=== PATIENT | female | born 1960 | race Caucasian/White ===

== ENCOUNTER 2019-10-29 16:09 | Inpatient (IN) | payer MEDICARE, SELFPAY ==
[2019-10-29] VITALS (8 sets, daily range): BP systolic 76–107; BP diastolic 48–62; PULSE 76–91; RESP 14–20; TEMP 36.5–37.2; O2SAT 93–100; BMI 37.9
--- NOTE | 2019-10-29 17:11 | W.ED.GENADLT ---
Documented by User: ASHU Rodriguez 10/29/19 22:56 HPI - General Adult General: Chief complaint: General Medical Stated complaint: diarrhea, decreased urination Time Seen by Provider: 10/29/19 17:11 History of Present Illness: HPI narrative: Patient is a 59-year-old female who comes to the ED with diarrhea and acid reflux. Patient has had her gallbladder removed. Patient says symptoms started about a week ago and she was having profuse diarrhea for the first couple days. She describes the diarrhea as watery and brown-colored. She says the diarrhea has slowed down a lot over the past couple days. Patient says she is not eating or drinking much over the last week either. Patient says she has had really bad acid reflux along with the diarrhea. She says whenever she eats or drinks anything she gets really bad reflux symptoms. She has been very fatigued and has been sleeping a lot for the past couple days. She developed a fever and chills at the start of the symptoms but has not had a fever or chills since then. She had one episode of emesis during this past week. She states she had some abdominal cramping but it was mild in the first part of the week. She denies any current abdominal pain or epigastric pain. She she took Immodium this past week to help with diarrhea symptoms. Patient also takes pantoprazole for her acid reflux. Patient denies any red blood in stool or black tarry stool. Associated symptoms: Deny chest pain, dyspnea, headache(s), nausea, rash, palpitations or vomiting Review of Systems Const: Denies: fever(s), chills or fatigue Eyes: Denies: change in vision or eye discomfort ENMT: Denies: throat pain, odynophagia, nasal discharge or nasal congestion Card: Denies: chest pain, palpitations, edema, swelling of feet/ankles, dyspnea on exertion or orthopnea Resp: Denies: dyspnea, productive cough or non-productive cough GI: Reports: heartburn (bad reflux for the past week) and diarrhea; Denies: abdominal pain, nausea, vomiting, constipation or hematochezia : Denies: flank pain, dysuria or hematuria Musc: Denies: neck pain, back pain or extremity swelling Skin/Breast: Denies: rash or new lesions Neuro: Denies: headache(s), numbness in extremities or weakness in extremities PFS ED PFSH: Medical History Asthma Depression History of menorrhagia Iron deficiency Surgical History H/O hernia repair S/P cholecystectomy Tubal ligation status Family History Denies family history of Psychiatric illness Suicide Social History Smoking and tobacco status: former smoker Alcohol intake: former Substance/Drug Use: never Household members: spouse and family Housing: House Physical Exam Const: COMMON NORMALS: no acute distress, patient oriented x3 and alert GENERAL APPEARANCE: cooperative and comfortable HENMT: COMMON NORMALS: normocephalic HEAD & SCALP: normocephalic MOUTH: moist mucous membranes abnormal Details: parched THROAT: posterior oropharynx normal and uvula midline Eye: COMMON NORMALS: Equal, round and reactive pupils present PUPIL: Yes Equal, round and reactive pupils present Neck/C-Spine: COMMON NORMALS: supple GENERAL: Yes normal visual inspection Resp: COMMON NORMALS: normal respiratory effort, No retractions, No use of accessory muscles and clear to auscultation bilaterally AUSCULTATION: clear to auscultation bilaterally Cardio: COMMON NORMALS: regular rate, regular rhythm, S1 normal heart sound present, S2 normal heart sound present, No gallops present (Cardio), No clicks present (Cardio), No murmurs present (Cardio) and Peripheral pulses 2+ throughout RATE: regular rate RHYTHM: regular rhythm HEART SOUNDS: S1 normal heart sound present and S2 normal heart sound present PERIPHERAL PULSES: Peripheral pulses 2+ throughout GI: COMMON NORMALS: Normal to inspection, nondistended, normoactive bowel sounds present, Soft to palpation, non-tender and no masses PALPATION: Yes Soft to palpation : COMMON NORMALS: Yes no CVA tenderness BLADDER/KIDNEY EXAM: Yes no CVA tenderness Back/Pelvis: COMMON NORMALS: no CVA tenderness Extremity: COMMON NORMALS: normal to inspection, capillary refill normal and no pedal edema Neuro: COMMON NORMALS: patient oriented x3 and moves all extremities SENSORIUM/ORIENTATION: Yes alert Skin: COMMON NORMALS: no rashes or lesions noted GENERAL SKIN EXAM: no rashes or lesions noted and dry skin Course Vital Signs: Vital signs: Vital Signs Temperature 99 F 10/29/19 16:21 Pulse Rate 86 10/29/19 22:28 Respiratory Rate 18 10/29/19 22:28 Blood Pressure 106/62 10/29/19 22:28 Pulse Oximetry 98 10/29/19 22:28 MDM - General Adult MDM Narrative: Medical decision making narrative: I performed the initial history, physical exam and lab/imaging work-up for patient. After lab results came back I discussed patient's elevated creatinine level with Dr. Barker. Dr. Barker will be taking over care and admission of patient. Patient is a 59-year-old female comes to the ED with diarrhea and acid reflux. Symptoms have been going on for a week and she says she is not ate or drink much fluids at all over the past week. Labs were performed and patient had a white blood cell count of 11.1, sodium of 129 and creatinine was 16.1 and BUN was 98. CT of the abdomen showed colitis. I reported these findings to Dr. Barker and he will be taking over care and admission of patient. Lab Data: Attestation: I reviewed the patient's lab results. Labs: Lab Results 10/29/19 10/29/19 10/29/19 Range/Units 17:35 17:35 17:35 WBC 11.1 H (4.0-10.0) 10^3/ uL RBC 4.39 (4.1-5.3) 10^6/u L Hgb 12.4 (11.5-15.3) g/dL Hct 38.3 (37.0-47.0) % MCV 87.2 (81-99) fL MCH 28.2 (28.0-34.0) pg MCHC 32.4 (30.0-36.0) g/dL RDW 13.2 (12.1-15.1) % Plt Count 327 (130-400) 10^3/c mm MPV 10.0 (7.4-10.4) fL Neut % (Auto) 64.4 % Lymph % (Auto) 21.0 % Metcalfe % (Auto) 7.7 % Eos % (Auto) 2.2 % Baso % (Auto) 0.6 % Neut # (Auto) 7.2 (1.8-7.7) 10^3/u L Lymph # (Auto) 2.3 (0.8-4.8) 10^3/u L Metcalfe # (Auto) 0.9 (0.2-0.9) 10^3/u L Eos # (Auto) 0.3 (0.0-0.8) 10^3/u L Baso # (Auto) 0.1 (0.0-0.1) 10^3/u L Nucleated RBC % (a uto) 0 % Nucleated RBCs # 0.0 /100WBC Sodium 129 L (136-145) mmol/L Potassium 3.8 (3.5-5.1) mmol/L Chloride 87 L (98-107) mmol/L Carbon Dioxide 18 L (22-29) mmol/L Anion Gap 27.8 H (5-19) BUN 98 H* (6-20) mg/dL Creatinine 16.1 H* (0.5-0.9) mg/dL GFR Calculation 2.3 L (90-130) mL/min Glucose 104 (65-115) mg/dL Calculated Osmolal ity 269 L (285-295) mOsm/k g Lactic Acid (Sepsi s) (0.5-2.2) mmol/L Calcium 8.5 (8.5-10.5) mg/dL Total Bilirubin 0.3 (0.15-1.2) mg/dL AST 22 (0-32) U/L ALT 21 (0-33) U/L Alkaline Phosphata se 164 H (35-105) IU/L Troponin T Baselin e (0-10) ng/L Troponin T 120 Min lumbee (0-10) ng/L Delta Troponin T (0-10) ABS# Total Protein 7.3 (6.6-8.7) g/dL Albumin 3.9 (3.5-5.2) g/dL Globulin 3.4 (1.3-4.6) g/dL Lipase 242 H (13-60) U/L Urine Color (Yellow) Urine Appearance (CLEAR) Urine pH (5-7) Ur Specific Gravit y (1.005-1.030) Urine Protein (Negative) Urine Glucose (UA) (Normal) Urine Ketones (Negative) Urine Blood (Negative) Urine Nitrate (Negative) Urine Bilirubin (NEGATIVE) Urine Urobilinogen (Negative) mg/dL Ur Leukocyte January ase (Negative) Urine RBC (0-2) /hpf Urine WBC (0-5) /hpf Ur Squamous Epith Cells (0-5) Ur Transition Epit h Cell /hpf Amorphous Sediment Urine Bacteria (NONE) Coarse Granular Ca sts /lpf H. pylori IgG Anti body Negative (Negative) 10/29/19 10/29/19 10/29/19 Range/Units 17:35 19:12 20:06 WBC (4.0-10.0) 10^3/ uL RBC (4.1-5.3) 10^6/u L Hgb (11.5-15.3) g/dL Hct (37.0-47.0) % MCV (81-99) fL MCH (28.0-34.0) pg MCHC (30.0-36.0) g/dL RDW (12.1-15.1) % Plt Count (130-400) 10^3/c mm MPV (7.4-10.4) fL Neut % (Auto) % Lymph % (Auto) % Metcalfe % (Auto) % Eos % (Auto) % Baso % (Auto) % Neut # (Auto) (1.8-7.7) 10^3/u L Lymph # (Auto) (0.8-4.8) 10^3/u L Metcalfe # (Auto) (0.2-0.9) 10^3/u L Eos # (Auto) (0.0-0.8) 10^3/u L Baso # (Auto) (0.0-0.1) 10^3/u L Nucleated RBC % (a uto) % Nucleated RBCs # /100WBC Sodium (136-145) mmol/L Potassium (3.5-5.1) mmol/L Chloride (98-107) mmol/L Carbon Dioxide (22-29) mmol/L Anion Gap (5-19) BUN (6-20) mg/dL Creatinine (0.5-0.9) mg/dL GFR Calculation (90-130) mL/min Glucose (65-115) mg/dL Calculated Osmolal ity (285-295) mOsm/k g Lactic Acid (Sepsi s) 0.7 (0.5-2.2) mmol/L Calcium (8.5-10.5) mg/dL Total Bilirubin (0.15-1.2) mg/dL AST (0-32) U/L ALT (0-33) U/L Alkaline Phosphata se (35-105) IU/L Troponin T Baselin e 47 H (0-10) ng/L Troponin T 120 Min lumbee 45.06 H (0-10) ng/L Delta Troponin T -1.94 L (0-10) ABS# Total Protein (6.6-8.7) g/dL Albumin (3.5-5.2) g/dL Globulin (1.3-4.6) g/dL Lipase (13-60) U/L Urine Color (Yellow) Urine Appearance (CLEAR) Urine pH (5-7) Ur Specific Gravit y (1.005-1.030) Urine Protein (Negative) Urine Glucose (UA) (Normal) Urine Ketones (Negative) Urine Blood (Negative) Urine Nitrate (Negative) Urine Bilirubin (NEGATIVE) Urine Urobilinogen (Negative) mg/dL Ur Leukocyte January ase (Negative) Urine RBC (0-2) /hpf Urine WBC (0-5) /hpf Ur Squamous Epith Cells (0-5) Ur Transition Epit h Cell /hpf Amorphous Sediment Urine Bacteria (NONE) Coarse Granular Ca sts /lpf H. pylori IgG Anti body (Negative) 10/29/19 Range/Units 20:10 WBC (4.0-10.0) 10^3/ uL RBC (4.1-5.3) 10^6/u L Hgb (11.5-15.3) g/dL Hct (37.0-47.0) % MCV (81-99) fL MCH (28.0-34.0) pg MCHC (30.0-36.0) g/dL RDW (12.1-15.1) % Plt Count (130-400) 10^3/c mm MPV (7.4-10.4) fL Neut % (Auto) % Lymph % (Auto) % Metcalfe % (Auto) % Eos % (Auto) % Baso % (Auto) % Neut # (Auto) (1.8-7.7) 10^3/u L Lymph # (Auto) (0.8-4.8) 10^3/u L Metcalfe # (Auto) (0.2-0.9) 10^3/u L Eos # (Auto) (0.0-0.8) 10^3/u L Baso # (Auto) (0.0-0.1) 10^3/u L Nucleated RBC % (a uto) % Nucleated RBCs # /100WBC Sodium (136-145) mmol/L Potassium (3.5-5.1) mmol/L Chloride (98-107) mmol/L Carbon Dioxide (22-29) mmol/L Anion Gap (5-19) BUN (6-20) mg/dL Creatinine (0.5-0.9) mg/dL GFR Calculation (90-130) mL/min Glucose (65-115) mg/dL Calculated Osmolal ity (285-295) mOsm/k g Lactic Acid (Sepsi s) (0.5-2.2) mmol/L Calcium (8.5-10.5) mg/dL Total Bilirubin (0.15-1.2) mg/dL AST (0-32) U/L ALT (0-33) U/L Alkaline Phosphata se (35-105) IU/L Troponin T Baselin e (0-10) ng/L Troponin T 120 Min lumbee (0-10) ng/L Delta Troponin T (0-10) ABS# Total Protein (6.6-8.7) g/dL Albumin (3.5-5.2) g/dL Globulin (1.3-4.6) g/dL Lipase (13-60) U/L Urine Color Dark yellow (Yellow) Urine Appearance Cloudy (CLEAR) Urine pH 5 (5-7) Ur Specific Gravit y 1.025 (1.005-1.030) Urine Protein 1+ H (Negative) Urine Glucose (UA) Norm (Normal) Urine Ketones 1+ H (Negative) Urine Blood 2+ H (Negative) Urine Nitrate Negative (Negative) Urine Bilirubin 1+ H (NEGATIVE) Urine Urobilinogen Norm (Negative) mg/dL Ur Leukocyte January ase 1+ H (Negative) Urine RBC 0-4 H (0-2) /hpf Urine WBC 10-15 H (0-5) /hpf Ur Squamous Epith Cells 15-25 H (0-5) Ur Transition Epit h Cell 0-4 /hpf Amorphous Sediment 1+ Urine Bacteria 1+ H (NONE) Coarse Granular Ca sts 0-4 H /lpf H. pylori IgG Anti body (Negative) Imaging Data^: CT Abd/Pel: Attestation: I personally reviewed and interpreted this imaging study as follows: Radiologist's impression: [place] [address] CT Scan Report Signed Patient: Angy Quintero Unit #: [id number] : 1960 Age/Sex: 59 / F ADM Date: 10/29/19 Loc: ER Room/Bed: Attending Dr: Ordering Provider/Ordering MD: Yovany Villanueva Date of Service: 10/29/19 Procedure(s): CT abdomen pelvis wo con [id number] Accession Number(s): [id number] Report Number: [id number] PROCEDURE INFORMATION: Exam: CT Abdomen And Pelvis Without Contrast Exam date and time: 10/29/2019 6:47 PM Age: 59 years old Clinical indication: Abdominal pain; Generalized; Prior surgery; Surgery type: Back, gb, hernia, hyst; Patient HX: Abd pain w n/v/d and weakness x 1 week; Additional info: Diarrhea, elevated lipase, elevated creatinine TECHNIQUE: Imaging protocol: Computed tomography of the abdomen and pelvis without contrast. Radiation optimization: All CT scans at this facility use at least one of these dose optimization techniques: automated exposure control; mA and/or kV adjustment per patient size (includes targeted exams where dose is matched to clinical indication); or iterative reconstruction. COMPARISON: CR Hip 2-3v RIGHT wwo Pelv* [id number] 03/21/2019 11:13 AM RADIATION DOSE METRICS: Total DLP: 1708.26 mGy-cm FINDINGS: Lungs: There is subpleural atelectasis of the dependent portions of the lungs. Mediastinal space: A small hiatal hernia is present. Liver: The liver is otherwise homogeneous in density. Gallbladder and bile ducts: There has been a cholecystectomy. The common bile duct measurement is 12 mm which is at the upper limits of normal for a postoperative patient. No intrahepatic biliary duct dilatation. Pancreas: Normal. No ductal dilation. Spleen: Normal. No splenomegaly. Adrenals: Normal. No mass. Kidneys and ureters: There is no evidence of hydronephrosis. There is no evidence of renal calcifications. Stomach and bowel: There is diffuse moderate wall thickening of the colon compatible with diffuse colitis. There is no evidence of intestinal perforation or obstruction. Appendix: A normal appendix is identified. A few appendicoliths are noted. Intraperitoneal space: Unremarkable. No free air. No significant fluid collection. Vasculature: Unremarkable.No abdominal aortic aneurysm. Lymph nodes: Unremarkable.No enlarged lymph nodes. Bladder: Unremarkable as visualized. Reproductive: Unremarkable as visualized. Bones/joints: There is a satisfactory appearance of the postoperative changes in the lower lumbar spine at L5-S1. No acute fracture. Soft tissues: There is a fat-containing umbilical hernia. CT/CT abdomen pelvis wo con [id number] IMPRESSION: There is diffuse moderate wall thickening of the colon compatible with diffuse colitis. No abscess or free air. Radiation Dose CTDIVOL = (mGy): DLP = 1708.26 (mGy-cm) Dictated By: Keiko Gilbert Signed By: Keiko Gilbert Signed Date/Time: 10/29/191928 DD/ 27 EKG Data^: EKG 1: Attestation: I personally reviewed and interpreted this EKG as follows: EKG interpretation date: 10/29/19 Interpretation: Normal sinus rhythm, 77 bpm, P waves present, no ST segment elevation or depression seen. Computer generated interpretation: Abdomen/Pelvis CT 10/29/19 18:41 IMPRESSION: There is diffuse moderate wall thickening of the colon compatible with diffuse colitis. No abscess or free air. Radiation Dose CTDIVOL = (mGy): DLP = 1708.26 (mGy-cm) Discharge Plan Discharge Admit Provider: Brian Eaton Discharge Date/Time: 10/29/19 22:32 Sign Out Sign Out Data: Patient Sign Out occurred on 10/29/19 at 20:50. Patient's care was discussed, and care was transferred from to [facility]. Coding Level of Care Code ED Group Fitness Department Head for Chg Fwd Exam Comprehensive Documented by User: Magalie Barker 10/29/19 22:44 HPI - General Adult General: Chief complaint: General Medical Stated complaint: diarrhea, decreased urination Time Seen by Provider: 10/29/19 17:11 PFSH ED PFSH: Medical History Asthma Depression History of menorrhagia Iron deficiency Surgical History H/O hernia repair S/P cholecystectomy Tubal ligation status Family History Denies family history of Psychiatric illness Suicide Social History Smoking and tobacco status: former smoker Alcohol intake: former Substance/Drug Use: never Household members: spouse and family Housing: House Course Vital Signs: Vital signs: Vital Signs Temperature 99 F 10/29/19 16:21 Pulse Rate 86 10/29/19 22:28 Respiratory Rate 18 10/29/19 22:28 Blood Pressure 106/62 10/29/19 22:28 Pulse Oximetry 98 10/29/19 22:28 MDM - General Adult MDM Narrative: Medical decision making narrative: Patient was seen and examined by me, I agree with Yovany Villanueva's assessment and plan. Patient's case was endorsed to Dr. Gallagher and he agrees admit for further evaluation and care. Lab Data: Labs: Lab Results 10/29/19 10/29/19 10/29/19 Range/Units 17:35 17:35 17:35 WBC 11.1 H (4.0-10.0) 10^3/ uL RBC 4.39 (4.1-5.3) 10^6/u L Hgb 12.4 (11.5-15.3) g/dL Hct 38.3 (37.0-47.0) % MCV 87.2 (81-99) fL MCH 28.2 (28.0-34.0) pg MCHC 32.4 (30.0-36.0) g/dL RDW 13.2 (12.1-15.1) % Plt Count 327 (130-400) 10^3/c mm MPV 10.0 (7.4-10.4) fL Neut % (Auto) 64.4 % Lymph % (Auto) 21.0 % Metcalfe % (Auto) 7.7 % Eos % (Auto) 2.2 % Baso % (Auto) 0.6 % Neut # (Auto) 7.2 (1.8-7.7) 10^3/u L Lymph # (Auto) 2.3 (0.8-4.8) 10^3/u L Metcalfe # (Auto) 0.9 (0.2-0.9) 10^3/u L Eos # (Auto) 0.3 (0.0-0.8) 10^3/u L Baso # (Auto) 0.1 (0.0-0.1) 10^3/u L Nucleated RBC % (a uto) 0 % Nucleated RBCs # 0.0 /100WBC Sodium 129 L (136-145) mmol/L Potassium 3.8 (3.5-5.1) mmol/L Chloride 87 L (98-107) mmol/L Carbon Dioxide 18 L (22-29) mmol/L Anion Gap 27.8 H (5-19) BUN 98 H* (6-20) mg/dL Creatinine 16.1 H* (0.5-0.9) mg/dL GFR Calculation 2.3 L (90-130) mL/min Glucose 104 (65-115) mg/dL Calculated Osmolal ity 269 L (285-295) mOsm/k g Lactic Acid (Sepsi s) (0.5-2.2) mmol/L Calcium 8.5 (8.5-10.5) mg/dL Total Bilirubin 0.3 (0.15-1.2) mg/dL AST 22 (0-32) U/L ALT 21 (0-33) U/L Alkaline Phosphata se 164 H (35-105) IU/L Troponin T Baselin e (0-10) ng/L Troponin T 120 Min lumbee (0-10) ng/L Delta Troponin T (0-10) ABS# Total Protein 7.3 (6.6-8.7) g/dL Albumin 3.9 (3.5-5.2) g/dL Globulin 3.4 (1.3-4.6) g/dL Lipase 242 H (13-60) U/L Urine Color (Yellow) Urine Appearance (CLEAR) Urine pH (5-7) Ur Specific Gravit y (1.005-1.030) Urine Protein (Negative) Urine Glucose (UA) (Normal) Urine Ketones (Negative) Urine Blood (Negative) Urine Nitrate (Negative) Urine Bilirubin (NEGATIVE) Urine Urobilinogen (Negative) mg/dL Ur Leukocyte January ase (Negative) Urine RBC (0-2) /hpf Urine WBC (0-5) /hpf Ur Squamous Epith Cells (0-5) Ur Transition Epit h Cell /hpf Amorphous Sediment Urine Bacteria (NONE) Coarse Granular Ca sts /lpf H. pylori IgG Anti body Negative (Negative) 10/29/19 10/29/19 10/29/19 Range/Units 17:35 19:12 20:06 WBC (4.0-10.0) 10^3/ uL RBC (4.1-5.3) 10^6/u L Hgb (11.5-15.3) g/dL Hct (37.0-47.0) % MCV (81-99) fL MCH (28.0-34.0) pg MCHC (30.0-36.0) g/dL RDW (12.1-15.1) % Plt Count (130-400) 10^3/c mm MPV (7.4-10.4) fL Neut % (Auto) % Lymph % (Auto) % Metcalfe % (Auto) % Eos % (Auto) % Baso % (Auto) % Neut # (Auto) (1.8-7.7) 10^3/u L Lymph # (Auto) (0.8-4.8) 10^3/u L Metcalfe # (Auto) (0.2-0.9) 10^3/u L Eos # (Auto) (0.0-0.8) 10^3/u L Baso # (Auto) (0.0-0.1) 10^3/u L Nucleated RBC % (a uto) % Nucleated RBCs # /100WBC Sodium (136-145) mmol/L Potassium (3.5-5.1) mmol/L Chloride (98-107) mmol/L Carbon Dioxide (22-29) mmol/L Anion Gap (5-19) BUN (6-20) mg/dL Creatinine (0.5-0.9) mg/dL GFR Calculation (90-130) mL/min Glucose (65-115) mg/dL Calculated Osmolal ity (285-295) mOsm/k g Lactic Acid (Sepsi s) 0.7 (0.5-2.2) mmol/L Calcium (8.5-10.5) mg/dL Total Bilirubin (0.15-1.2) mg/dL AST (0-32) U/L ALT (0-33) U/L Alkaline Phosphata se (35-105) IU/L Troponin T Baselin e 47 H (0-10) ng/L Troponin T 120 Min lumbee 45.06 H (0-10) ng/L Delta Troponin T -1.94 L (0-10) ABS# Total Protein (6.6-8.7) g/dL Albumin (3.5-5.2) g/dL Globulin (1.3-4.6) g/dL Lipase (13-60) U/L Urine Color (Yellow) Urine Appearance (CLEAR) Urine pH (5-7) Ur Specific Gravit y (1.005-1.030) Urine Protein (Negative) Urine Glucose (UA) (Normal) Urine Ketones (Negative) Urine Blood (Negative) Urine Nitrate (Negative) Urine Bilirubin (NEGATIVE) Urine Urobilinogen (Negative) mg/dL Ur Leukocyte January ase (Negative) Urine RBC (0-2) /hpf Urine WBC (0-5) /hpf Ur Squamous Epith Cells (0-5) Ur Transition Epit h Cell /hpf Amorphous Sediment Urine Bacteria (NONE) Coarse Granular Ca sts /lpf H. pylori IgG Anti body (Negative) 10/29/19 Range/Units 20:10 WBC (4.0-10.0) 10^3/ uL RBC (4.1-5.3) 10^6/u L Hgb (11.5-15.3) g/dL Hct (37.0-47.0) % MCV (81-99) fL MCH (28.0-34.0) pg MCHC (30.0-36.0) g/dL RDW (12.1-15.1) % Plt Count (130-400) 10^3/c mm MPV (7.4-10.4) fL Neut % (Auto) % Lymph % (Auto) % Metcalfe % (Auto) % Eos % (Auto) % Baso % (Auto) % Neut # (Auto) (1.8-7.7) 10^3/u L Lymph # (Auto) (0.8-4.8) 10^3/u L Metcalfe # (Auto) (0.2-0.9) 10^3/u L Eos # (Auto) (0.0-0.8) 10^3/u L Baso # (Auto) (0.0-0.1) 10^3/u L Nucleated RBC % (a uto) % Nucleated RBCs # /100WBC Sodium (136-145) mmol/L Potassium (3.5-5.1) mmol/L Chloride (98-107) mmol/L Carbon Dioxide (22-29) mmol/L Anion Gap (5-19) BUN (6-20) mg/dL Creatinine (0.5-0.9) mg/dL GFR Calculation (90-130) mL/min Glucose (65-115) mg/dL Calculated Osmolal ity (285-295) mOsm/k g Lactic Acid (Sepsi s) (0.5-2.2) mmol/L Calcium (8.5-10.5) mg/dL Total Bilirubin (0.15-1.2) mg/dL AST (0-32) U/L ALT (0-33) U/L Alkaline Phosphata se (35-105) IU/L Troponin T Baselin e (0-10) ng/L Troponin T 120 Min lumbee (0-10) ng/L Delta Troponin T (0-10) ABS# Total Protein (6.6-8.7) g/dL Albumin (3.5-5.2) g/dL Globulin (1.3-4.6) g/dL Lipase (13-60) U/L Urine Color Dark yellow (Yellow) Urine Appearance Cloudy (CLEAR) Urine pH 5 (5-7) Ur Specific Gravit y 1.025 (1.005-1.030) Urine Protein 1+ H (Negative) Urine Glucose (UA) Norm (Normal) Urine Ketones 1+ H (Negative) Urine Blood 2+ H (Negative) Urine Nitrate Negative (Negative) Urine Bilirubin 1+ H (NEGATIVE) Urine Urobilinogen Norm (Negative) mg/dL Ur Leukocyte January ase 1+ H (Negative) Urine RBC 0-4 H (0-2) /hpf Urine WBC 10-15 H (0-5) /hpf Ur Squamous Epith Cells 15-25 H (0-5) Ur Transition Epit h Cell 0-4 /hpf Amorphous Sediment 1+ Urine Bacteria 1+ H (NONE) Coarse Granular Ca sts 0-4 H /lpf H. pylori IgG Anti body (Negative) EKG Data^: EKG 1: Computer generated interpretation: Abdomen/Pelvis CT 10/29/19 18:41 IMPRESSION: There is diffuse moderate wall thickening of the colon compatible with diffuse colitis. No abscess or free air. Radiation Dose CTDIVOL = (mGy): DLP = 1708.26 (mGy-cm) Discharge Plan Discharge Admit Provider: Brian Eaton Discharge Date/Time: 10/29/19 22:32 Sign Out Sign Out Data: Patient Sign Out occurred on 10/29/19 at 20:50. Patient's care was discussed, and care was transferred from to [facility]. Coding Level of Care Code ED Group Fitness Department Head for Chg Fwd Exam Comprehensive
[2019-10-29] MEDS: sodium chloride 0.9% 1,000 ML 999 ML IV ×2 (17:42→19:49)
[2019-10-29 17:53] LABS: Basophils # 0.1 10^3/uL (0.0-0.1); Basophils % 0.6 %; Eosinophils # 0.3 10^3/uL (0.0-0.8); Eosinophils % 2.2 %; Hematocrit 38.3 % (37.0-47.0); Hemoglobin 12.4 g/dL (11.5-15.3); Lymphocytes # 2.3 10^3/uL (0.8-4.8); Mean Corpuscular HGB Conc 32.4 g/dL (30.0-36.0); Mean Corpuscular Hemoglobin 28.2 pg (28.0-34.0); Mean Corpuscular Volume 87.2 fL (81-99); Monocytes # 0.9 10^3/uL (0.2-0.9); Monocytes % 7.7 %; Neutrophils # 7.2 10^3/uL (1.8-7.7); Neutrophils % 64.4 %; Nucleated Red Blood Cells % 0 %; Platelet Count 327 10^3/cmm (130-400); Red Blood Count 4.39 10^6/uL (4.1-5.3); Red Cell Distribution Width 13.2 % (12.1-15.1); White Blood Count 11.1 10^3/uL (4.0-10.0)
[2019-10-29 18:00] LABS: Alanine Aminotransferase 21 U/L (0-33); Albumin Level 3.9 g/dL (3.5-5.2); Alkaline Phosphatase 164 IU/L (35-105); Anion Gap 27.8 (5-19); Aspartate Amino Transferase 22 U/L (0-32); Calcium 8.5 mg/dL (8.5-10.5); Carbon Dioxide 18 mmol/L (22-29); Chloride 87 mmol/L (98-107); Globulin 3.4 g/dL (1.3-4.6); Glomerular Filtration Rate 2.3 mL/min (90-130); Glucose 104 mg/dL (65-115); Lipase 242 U/L (13-60); Osmolality Calculated 269 mOsm/kg (285-295); Potassium 3.8 mmol/L (3.5-5.1); Sodium 129 mmol/L (136-145); Total Bilirubin 0.3 mg/dL (0.15-1.2); Total Protein 7.3 g/dL (6.6-8.7)
[2019-10-29 18:25] LABS: H. Pylori IgG Antibody Negative (Negative)
[2019-10-29 18:32] LABS: Blood Urea Nitrogen 98 mg/dL (6-20)
--- NOTE | 2019-10-29 18:41 | CTR_ITS ---
PROCEDURE INFORMATION: Exam: CT Abdomen And Pelvis Without Contrast Exam date and time: 10/29/2019 6:47 PM Age: 59 years old Clinical indication: Abdominal pain; Generalized; Prior surgery; Surgery type: Back, gb, hernia, hyst; Patient HX: Abd pain w n/v/d and weakness x 1 week; Additional info: Diarrhea, elevated lipase, elevated creatinine TECHNIQUE: Imaging protocol: Computed tomography of the abdomen and pelvis without contrast. Radiation optimization: All CT scans at this facility use at least one of these dose optimization techniques: automated exposure control; mA and/or kV adjustment per patient size (includes targeted exams where dose is matched to clinical indication); or iterative reconstruction. COMPARISON: CR Hip 2-3v RIGHT wwo Pelv* [id number] 03/21/2019 11:13 AM RADIATION DOSE METRICS: Total DLP: 1708.26 mGy-cm FINDINGS: Lungs: There is subpleural atelectasis of the dependent portions of the lungs. Mediastinal space: A small hiatal hernia is present. Liver: The liver is otherwise homogeneous in density. Gallbladder and bile ducts: There has been a cholecystectomy. The common bile duct measurement is 12 mm which is at the upper limits of normal for a postoperative patient. No intrahepatic biliary duct dilatation. Pancreas: Normal. No ductal dilation. Spleen: Normal. No splenomegaly. Adrenals: Normal. No mass. Kidneys and ureters: There is no evidence of hydronephrosis. There is no evidence of renal calcifications. Stomach and bowel: There is diffuse moderate wall thickening of the colon compatible with diffuse colitis. There is no evidence of intestinal perforation or obstruction. Appendix: A normal appendix is identified. A few appendicoliths are noted. Intraperitoneal space: Unremarkable. No free air. No significant fluid collection. Vasculature: Unremarkable.No abdominal aortic aneurysm. Lymph nodes: Unremarkable.No enlarged lymph nodes. Bladder: Unremarkable as visualized. Reproductive: Unremarkable as visualized. Bones/joints: There is a satisfactory appearance of the postoperative changes in the lower lumbar spine at L5-S1. No acute fracture. Soft tissues: There is a fat-containing umbilical hernia. CT/CT abdomen pelvis wo con [id number] IMPRESSION: There is diffuse moderate wall thickening of the colon compatible with diffuse colitis. No abscess or free air. Radiation Dose CTDIVOL = (mGy): DLP = 1708.26 (mGy-cm)
--- NOTE | 2019-10-29 19:48 | ECG_ITS ---
Measurements Intervals [place] Rate: 77 P: 11 [place]: 135 QRS: 40 QRSD: 92 T: 31 QT: 409 QTc: 465 SINUS RHYTHM No previous ECG available for comparison Electronically Signed On 10-30-2019 19:04:32 CDT by Brian Pillai M.D. [id number]
[2019-10-29] MEDS: metroNIDAZOLE IV 500 MG/100 ML PREMIX 100 MG IV (19:50)
[2019-10-29 20:10] LABS: Lactic Acid level (Lactate) 0.7 mmol/L (0.5-2.2)
[2019-10-29 20:12] LABS: Troponin(5th) Baseline 47 ng/L (0-10)
[2019-10-29 20:35] LABS: Troponin 5 2HR 45.06 ng/L (0-10)
[2019-10-29 20:43] LABS: Troponin 5 2HR Delta -1.94 ABS# (0-10)
--- NOTE | 2019-10-29 21:02 | P.HP_ITS ---
Providers/Chief Complaint Primary Care Provider: Grzegorz Garcia DO Chief Complaint: diarrhea History of Present Illness Angy Quintero is a 59 year old female who does not have a significant past medical history came in with chief complaint of acute diarrhea. Patient is stating that she was in her usual state of health until Thursday when she experienced watery diarrhea after visiting the city with her to buy groceries. She did not eat outside, she did not experience any fever, no recent traveling/ camping, she drinks well water, no one else has similar complaints at home. She eats healthy. Since Thursday she has been having profuse watery diarrhea almost every 3-4 hours, she has not noticed any blood in her stool, nausea. She only had one episode of vomiting. She has not been feeling hungry at all, she has not taken enough p.o. fluid as well, she experienced mild abdominal discomfort. She tried Imodium to stop her diarrhea but that did not help her as well. She has not used any antibiotics recently although she has history of recurrent UTIs. Her last antibiotic use was about 1 year ago. She denies colonoscopy at age 52. Diagnostics in the ER revealed Hypotension due to dehydration, LAURA, CT abdomen without contrast revealed diffuse colitis, She has received 2 L normal saline bolus in the ER She got ciprofloxacin and Flagyl At the time of my evaluation her blood pressure was 110, abdomen soft, she was asking for dinner Review of Systems Const: Reports: chills, body aches, change in appetite and fatigue; Denies: fever(s) or change in weight Eyes: Denies: change in vision ENMT: Denies: throat pain Card: Denies: chest pain Resp: Denies: dyspnea GI: Reports: abdominal pain, nausea, diarrhea, bloating and GI cramping; Denies: vomiting, hematemesis, constipation or rectal swelling : Denies: flank pain Musc: Denies: neck pain Skin/Breast: Denies: rash Neuro: Denies: headache(s) Psych: Denies: anxiety Endo: Denies: polyuria Jamar/Lymph: Denies: easy bruising All/Imm: Denies: urticaria Medications/Allergies Home Medications Medication Instructions Recorded Confirmed Last Taken Type Calcium 500 1 tab PO DAILY 10/29/19 10/29/19 Unknown History desvenlafaxine succinate 100 mg PO DAILY 10/29/19 10/29/19 10/28/19 History fentanyl See Rx Instructions .ROUTE .COMPLEX 10/29/19 10/29/19 Unknown History hydrocodone-acetaminophen 1 - 2 tab PO Q6H PRN 10/29/19 10/29/19 10/29/19 03:00 History lisinopril 20 mg PO DAILY 10/29/19 10/29/19 10/28/19 History multivitamin [Multiple Vitamins] 1 tab PO DAILY 10/29/19 10/29/19 Unknown History pantoprazole 40 mg PO BID 10/29/19 10/29/19 10/29/19 History zolpidem 5 mg PO BEDTIME PRN 10/29/19 10/29/19 10/28/19 History Allergies Allergy/AdvReac Type Severity Reaction Status Date / Time codeine Allergy ADR-Irritab Verified 10/29/19 16:26 le sulfamethoxazole Allergy ALGY-Hives Verified 10/29/19 16:26 [From Bactrim] tetracycline Allergy Unknown Verified 10/29/19 16:26 trimethoprim [From Bactrim] Allergy ALGY-Hives Verified 10/29/19 16:26 PFSH Acute PFSH: Medical History Asthma Depression History of menorrhagia Iron deficiency Surgical History H/O hernia repair S/P cholecystectomy Tubal ligation status Family History Denies family history of Psychiatric illness Suicide Social History Smoking and tobacco status: former smoker Alcohol intake: former Substance/Drug Use: never Household members: spouse and family Housing: House Vitals/I&O/Wt Last Vital Signs Temp 99 F 10/29/19 16:21 Pulse 76 10/29/19 19:47 Resp 15 10/29/19 19:47 BP 94/58 10/29/19 19:47 Pulse Ox 96 10/29/19 19:47 10/29/19 10/29/19 10/29/19 06:59 14:59 22:59 Intake Total 1000 / 1000 Balance 1000 / 1000 Weight last 48 hrs Weight 106.594 kg Physical Exam Narrative: EXAM NARRATIVE: Head to toe examination Patient sitting comfortably in her bed, feeling dehydrated and asking for food No active signs of peritonitis No active respiratory distress S1, S2 no tachycardia Positive signs for dehydration Abdomen is soft, nontender, nondistended, bowel sound present, hyperactive, No CVA tenderness, Neurological nonfocal exam Appropriate mood and affect EOMI, PERRLA No ischemia gangrene ulcer of lower extremities Data : 10/29/19 17:35 10/29/19 17:35 Micro: Microbiology 10/29/19 19:15 Blood Culture - Preliminary Blood SPECIMEN COLLECTED 10/29/19 19:12 Blood Culture - Preliminary Blood SPECIMEN COLLECTED A&P Assessment and plan (1) Colitis: Status: Acute (2) Dehydration: Status: Acute (3) LAURA (acute kidney injury): Status: Acute (4) Hyponatremia: Status: Acute (5) Watery diarrhea: Status: Acute Additional A&P Information Diffuse colitis Patient is not septic on admission C. difficile panel , Enteric panel, ova and parasite level ordered No recent use of antibiotics however she has history of recurrent UTIs No history of inflammatory bowel disease No recent traveling okay I would cover her with ceftriaxone for gram-negative microorganisms and metronidazole for anaerobic coverage Would avoid nephrotoxic agent Acute kidney injury due to dehydration and use of lisinopril without indication for dialysis Patient has had multiple episodes of watery diarrhea since Thursday No hydronephrosis or ureteral obstruction seen on CT abdomen, She is extremely dehydrated, Anticipate improvement with fluid resuscitation Hold lisinopril that she recently started for her hypertension We will get urine electrolytes Hyponatremia due to dehydration Continue fluid restriction No neurological sign Patient clinically dehydrated Full code Full liquid diet DVT prophylaxis Heparin Attestations Medical Necessity Statement*: Anticipating stay in the hospital course more than 2 m currently need antibiotics for colitis and fluid resuscitation Time Spent in Patient Care: 60 Coding Level of Care Code Acute Assistant Manager Quality Management for [facility] Fwd Diagnoses Colitis K52.9 Dehydration E86.0 LAURA (acute kidney injury) N17.9 Hyponatremia E87.1 Watery diarrhea R19.7
[2019-10-29 21:13] LABS: Blood Urine 2+ (Negative); Glucose Urine UA Norm (Normal); Ketones Urine 1+ (Negative); Protein Urine 1+ (Negative); Specific Gravity, Urine 1.025 (1.005-1.030); Urine Appearance Cloudy (CLEAR); Urine Color Dark Yellow (Yellow); pH Urine 5 (5-7)
[2019-10-29 21:14] LABS: Add Urine Microscopic? YES; Bilirubin Urine 1+ (NEGATIVE); Leukocyte Esterase Urine 1+ (Negative); Nitrate Urine Negative (Negative); Urobilinogen Urine Norm (Negative)
[2019-10-29 21:15] LABS: RBC Urine 0-4 /hpf (0-2)
[2019-10-29 21:16] LABS: Amorphous Sediment Urine 1+; Bacteria Urine 1+; Squamous Epithelial Cell Urine 15-25 (0-5); Transitional Epi Cells Urine 0-4 /hpf
[2019-10-29 21:17] LABS: Add Urine Culture? No; Coarse Granular Casts Urine 0-4 /lpf
[2019-10-29] MEDS: ciprofloxacin 400 MG/200 ML PREMIX 200 MG IV (21:30)
[2019-10-29] MEDS: lactated ringers 1,000 ML 999 ML IV (21:42)
--- NOTE | 2019-10-29 21:48 | ECG_ITS ---
Measurements Intervals [place] Rate: 80 P: 58 IN: 166 QRS: -53 QRSD: 148 T: 35 QT: 395 QTc: 456 SINUS RHYTHM RIGHT BUNDLE BRANCH BLOCK [120+ ms QRS DURATION, UPRIGHT V1, 40+ ms S IN I/aVL/V4/V5/V6] LEFT ANTERIOR FASCICULAR BLOCK [QRS AXIS <= -45, QR IN I, RS IN II] POSSIBLE ANTERIOR MYOCARDIAL INFARCTION , PROBABLY OLD [30 ms Q WAVE IN V3/V4, OR R < 0.2 mV IN V4] No previous ECG available for comparison Electronically Signed On 10-30-2019 19:07:11 CDT by Brian Pillai M.D. [id number]
[2019-10-29] MEDS: dextrose 5%-sod chloride 0.9% 1,000 ML 100 ML IV (23:04)
[2019-10-30] VITALS (11 sets, daily range): BP systolic 64–118; BP diastolic 33–70; PULSE 84–89; RESP 16–18; TEMP 36.6–37.1; O2SAT 94–100
[2019-10-30 00:56] LABS: Troponin 5 6HR 42.46 ng/L (0-10)
[2019-10-30 01:07] LABS: Troponin 5 6HR Delta -4.54 ng/L (0-12)
[2019-10-30] MEDS: HYDROcodone-acetaminophen 5-325 mg Tablet 1 TAB PO ×2 (03:39→21:30)
--- NOTE | 2019-10-30 04:47 | PC.NURSE ---
Patient's blood pressure 64/33. Nurse been notified.
[2019-10-30] MEDS: lactated ringers 1,000 ML 999 ML IV ×2 (05:05)
[2019-10-30 05:28] LABS: Basophils # 0.1 10^3/uL (0.0-0.1); Basophils % 0.7 %; Eosinophils # 0.3 10^3/uL (0.0-0.8); Eosinophils % 2.8 %; Hematocrit 32.8 % (37.0-47.0); Hemoglobin 10.3 g/dL (11.5-15.3); Lymphocytes % 22.4 %; Mean Corpuscular HGB Conc 31.4 g/dL (30.0-36.0); Mean Corpuscular Volume 89.1 fL (81-99); Mean Platelet Volume 9.9 fL (7.4-10.4); Monocytes # 0.7 10^3/uL (0.2-0.9); Monocytes % 7.8 %; Neutrophils # 5.6 10^3/uL (1.8-7.7); Neutrophils % 61.6 %; Nucleated Red Blood Cells % 0 %; Platelet Count 256 10^3/cmm (130-400); Red Blood Count 3.68 10^6/uL (4.1-5.3); Red Cell Distribution Width 13.3 % (12.1-15.1)
[2019-10-30 05:47] LABS: Anion Gap 24.7 (5-19); Blood Urea Nitrogen 77 mg/dL (6-20); Calcium 8.3 mg/dL (8.5-10.5); Carbon Dioxide 14 mmol/L (22-29); Chloride 97 mmol/L (98-107); Glomerular Filtration Rate 2.5 mL/min (90-130); Glucose 123 mg/dL (65-115); Osmolality Calculated 275 mOsm/kg (285-295); Potassium 3.7 mmol/L (3.5-5.1); Sodium 132 mmol/L (136-145)
--- NOTE | 2019-10-30 07:31 | USR_ITS ---
PROCEDURE INFORMATION: Exam: US Retroperitoneal Complete, Kidneys and Bladder. Exam date and time: 10/30/2019 8:42 AM Age: 59 years old Clinical indication: Abnormal findings; Abnormal lab test; Abnormal kidney function lab tests; Additional info: [place] TECHNIQUE: Imaging protocol: Real-time ultrasound of the retroperitoneum with image documentation. Complete exam focused on the kidneys and bladder. COMPARISON: CT abdomen pelvis wo con [id number] 10/29/2019 6:54 PM FINDINGS: Right kidney: Right kidney measures 10.4 cm in length. No renal mass, calculus, or hydronephrosis. Left kidney: Left kidney measures 9.7 cm in length. No renal mass, calculus, or hydronephrosis. Aorta: Normal caliber of the visualized abdominal aorta. Inferior vena cava: IVC not visualized. Bladder: Gutiérrez catheter in the decompressed bladder, limiting evaluation. US/US renal BI with bladder IMPRESSION: No acute sonographic abnormality in the visualized kidneys and upper collecting systems.
[2019-10-30] MEDS: cefTRIAXone 1,000 MG in sodium chloride 0.9% (plus) 50 ML 100 MG IV (07:50)
[2019-10-30] MEDS: heparin 5,000 unit/mL INJ 1 mL 5000 UNIT SUBCUT ×2 (07:51→20:28)
[2019-10-30] MEDS: metroNIDAZOLE 500 MG Tablet PO (07:51)
[2019-10-30] MEDS: dextrose 5%-sod chloride 0.9% 1,000 ML 100 ML IV (07:52)
[2019-10-30 08:30] LABS: Potassium, Radom Urine 24 mmol/L; Urine Creatinine 371 mg/dL (28-217); Urine Random Sodium 31 mmol/L
[2019-10-30 09:20] LABS: Urine Random Chloride 11 mmol/L
--- NOTE | 2019-10-30 11:45 | P.PN_ITS ---
Subjective Subjective: Interval history: Admitted last night. H&P and labs noted. Patient was admitted because of recurrent episodes of diarrhea for last 7 days along with decreased urine output for last 4 days and almost none for last 3 days. She takes lisinopril at home which she has not taken for last 3 days. Hemodynamically stable, afebrile since last night. Has had 3-4 episodes of diarrhea without any nausea or vomiting. Vitals/I&O/Wt Last Vital Signs Temp 98.5 F 10/30/19 11:15 Pulse 87 10/30/19 11:15 Resp 18 10/30/19 11:15 BP 101/62 10/30/19 11:15 Pulse Ox 98 10/30/19 11:15 10/29/19 10/30/19 10/30/19 22:59 06:59 14:59 Intake Total 1100 / 1100 480 / 1580 1480 / 1480 Balance 1100 / 1100 480 / 1580 1480 / 1480 Weight last 48 hrs Weight 106.594 kg Physical Exam Narrative: EXAM NARRATIVE: General: No acute distress, AO x3 mildly dehydrated,Kathryn spots present HEENT: PERRLA, pupils bilaterally equal and reactive Chest: Normal vesicular breath sounds, no added sounds, equal good air entry bilaterally CVS: S1-S2 regular, no murmurs, no tachycardia, no gallops, no rubs Abdomen: Soft, nontender, no organomegaly, bowel sounds present Neuro: No focal deficits, no facial deformity, AO x3, power 5/5 in all limbs Urinary Catheter Management^: Gutiérrez: Cath Placed During This Visit: yes Urinary Catheter Date of Insertion: 10/29/19 Urinary Catheter Time of Insertion: 22:00 Data : 10/30/19 05:06 10/30/19 15:10 Micro: Microbiology 10/30/19 06:35 Enteric Pathogens (PCR) - Final Stool C.difficile Toxin B Gene (PCR) - Final 10/29/19 19:15 Blood Culture - Preliminary Blood SPECIMEN COLLECTED 10/29/19 19:12 Blood Culture - Preliminary Blood SPECIMEN COLLECTED A&P Assessment and plan (1) Salmonella enteritis: Status: Acute (2) Watery diarrhea: Status: Acute (3) Dehydration: Status: Acute (4) Renal failure: Status: Acute (5) Oliguria: Status: Acute (6) Metabolic acidosis, increased anion gap: Status: Acute (7) Hypertension: Status: Acute (8) Hyponatremia: Status: Acute Additional A&P Information Colitis: Most likely because of Salmonella enteritis: Stool studies positive for Salmonella DNA. We will send stool culture for susceptibilities. Continue ceftriaxone. Stop Flagyl. Continue with fluid at 100 cc/h. Right now patient is with normal saline with D5 100 cc/h. We will continue the same for now we will wait for nephrology consultation to see if patient needs Ringer lactate. Renal failure: Most likely because of severe dehydration from diarrhea along with lisinopril use. Hyponatremia has resolved. Patient continues to have high anion gap metabolic acidosis. For now we will continue same hydration will wait for nephrology consultation to see if he have to start Ringer lactate. No acute need of dialysis for now. Send urine lites, urine eosinophils, renal ultrasound, hepatitis panel, urine electrophoresis. Continue with Gutiérrez catheter for strict input output charting. Monitor BMP daily. Hypertension: Continue to hold off on antihypertensive for now. Blood pressure mostly well controlled. Full code Renal nondialysis diet DVT prophylaxis Heparin 5000 every 12 Attestations Medical Necessity Statement*: Renal failure, Salmonella enteritis Time Spent in Patient Care: Greater than 35 minutes (>than 50% of time spent in counselling and/or direct pt care on unit) . Coding Level of Care Code Acute Toggle Press Folder And Feeder for [facility] Diagnoses Salmonella enteritis A02.0 Watery diarrhea R19.7 Dehydration E86.0 Renal failure N19 Oliguria R34 Metabolic acidosis, increased anion gap E87.2 Hypertension I10 Hyponatremia E87.1
[2019-10-30 12:16] LABS: Procalcitonin 1.86 ng/mL (0-0.5); Thyroid Stimulating Hormone 0.85 uIU/mL (0.27-4.20)
--- NOTE | 2019-10-30 12:33 | PM.CONSULT ---
Providers/Reason For Consult Consulting Physican/Specialty*: jenny phoenix md/ telenephrology Reason for Consult*: william, inc AGMA Attending Physician: Anil Hobbs MD Primary Care Provider: Grzegorz Garcia DO History of Present Illness History of Present Illness Angy Quintero is a 59 year old female h/o back issues, depression, obesity, and htn. she denies renal issuers. pt here w/ one weak of diarrhea, poor po intake, weakness, fevers. she has not urinated in days. pt was diagnosed w/ solmanella. pt started on ivf and abx. renal called for WILLIAM, hyponatremia, and inc AGMA. Review of Systems General: Reports: 10 or more systems reviewed and unremarkable except in HPI and below Narrative: weak, lightheaded, nausea, diarrhea, poor po intake, no cp, +NATION, no visual changes. dec uop, no leg edema, no new joint pain. has chronic back pain- and h/o spinal surgery Meds/Allergies Home Medications and Allergies Home Medications Medication Instructions Recorded Confirmed Last Taken Type Calcium 500 1 tab PO DAILY 10/29/19 10/29/19 Unknown History desvenlafaxine succinate 100 mg PO DAILY 10/29/19 10/29/19 10/28/19 History fentanyl See Rx Instructions .ROUTE .COMPLEX 10/29/19 10/29/19 Unknown History hydrocodone-acetaminophen 1 - 2 tab PO Q6H PRN 10/29/19 10/29/19 10/29/19 03:00 History lisinopril 20 mg PO DAILY 10/29/19 10/29/19 10/28/19 History multivitamin [Multiple Vitamins] 1 tab PO DAILY 10/29/19 10/29/19 Unknown History pantoprazole 40 mg PO BID 10/29/19 10/29/19 10/29/19 History zolpidem 5 mg PO BEDTIME PRN 10/29/19 10/29/19 10/28/19 History Allergies Allergy/AdvReac Type Severity Reaction Status Date / Time codeine Allergy ADR-Irritab Verified 10/29/19 16:26 le sulfamethoxazole Allergy ALGY-Hives Verified 10/29/19 16:26 [From Bactrim] tetracycline Allergy Unknown Verified 10/29/19 16:26 trimethoprim [From Bactrim] Allergy ALGY-Hives Verified 10/29/19 16:26 Current Medications Current Medications Generic Name Dose Route Start Last Admin Trade Name Freq PRN Reason Stop Dose Admin Hydrocodone Bitart/Acetaminophen 1 tab 10/30/19 02:39 10/30/19 03:39 [place] 5-325 Mg PO 1 tab Q12H PRN Administration MODERATE PAIN Dextrose/Sodium Chloride 1,000 mls @ 100 mls/hr 10/29/19 22:42 10/30/19 07:52 Dextrose 5%-Sod Chloride 0.9% IV 100 mls/hr .Q10H ELIESER Administration Ceftriaxone Sodium 1,000 mg/ 50 mls @ 100 mls/hr 10/30/19 09:00 10/30/19 08:20 Sodium Chloride IV Infused DAILY ELIESER Infusion Protocol Metronidazole 500 mg 10/30/19 09:00 10/30/19 07:51 Flagyl Tab PO 500 mg TID ELIESER Administration PFSH Acute PFSH: Medical History Asthma Depression History of menorrhagia Iron deficiency Surgical History H/O hernia repair S/P cholecystectomy Tubal ligation status Family History Denies family history of Psychiatric illness Suicide Social History Smoking and tobacco status: former smoker Alcohol intake: former Substance/Drug Use: never Household members: spouse and family Housing: House Vitals/I&O/Wt Last Vital Signs Temp 98.5 F 10/30/19 11:15 Pulse 87 10/30/19 11:15 Resp 18 10/30/19 11:15 BP 101/62 10/30/19 11:15 Pulse Ox 98 10/30/19 11:15 10/29/19 10/30/19 10/30/19 22:59 06:59 14:59 Intake Total 1100 / 1100 480 / 1580 1530 / 1530 Balance 1100 / 1100 480 / 1580 1530 / 1530 Weight last 48 hrs Weight 106.594 kg Physical Exam Narrative: EXAM NARRATIVE: vs noted gen- obese, NARD, in bed- comfortable heent- nc/at, eomi, anicteric neck no jvp lungs CTA b/l heart reg, no rub abd -soft, nt, nd, BS ext- no edema from x 4 pulses weak DP/ PT pulses Urinary Catheter Management^: Caldwell: Cath Placed During This Visit: yes Urinary Catheter Date of Insertion: 10/29/19 Urinary Catheter Time of Insertion: 22:00 Data Micro: Micro: Microbiology 10/30/19 06:35 Enteric Pathogens (PCR) - Final Stool C.difficile Toxin B Gene (PCR) - Fin al 10/29/19 19:15 Blood Culture - Pr eliminary Blood SPECIMEN [facility] [place] 10/29/19 19:12 Blood Culture - Pr eliminary Blood SPECIMEN [facility] A&P Additional A&P Information 59 yr old female 1. WILLIAM- please get old labs -william from Prerenal azotemia vs atn- due to solmanella, profuse diarrhea, taking lisinopril, and not eating -no hydronephrosis on renal us or CT scan -monitor uop and chemistries -d/c caldwell- no obstruction -cont ivf -protonix is also associated w/ renal insufficiency u/a dirty- will repeat 2. hyponatremia- likely prerenal- is improving -cont ivf -check am cortisol level 3,inc AGMA- from starvation ketoacidosis and from william. -normal lacatate 4. hypokalemia- monitor w/ WILLIAM improvement and diarrhea 5. anemia- w/u per hospitalist - check spep/ sife meds reviewed discussed w/ pt, RN, and Dr. Moraes Consult Attestations Medical Necessity Statement: WILLIAM, solmanella eneteritis, inc aGMA, acidosis Time Spent in Patient Care: Greater than 35 minutes Coding Level of Care Code Acute Radial Drill Press Operator for [facility]
[2019-10-30 13:37] LABS: Eosinophil Urine No Eosinophils Seen; Urine Eosinophil Count 0 (0-0)
[2019-10-30 14:38] LABS: Bilirubin Urine Neg (NEGATIVE); Blood Urine 2+ (Negative); Glucose Urine UA Norm (Normal); Ketones Urine Negative (Negative); Leukocyte Esterase Urine Trace (Negative); Nitrate Urine Negative (Negative); Protein Urine 1+ (Negative); Urine Appearance SL Hazy (CLEAR); Urine Color Yellow (Yellow); Urobilinogen Urine Norm (Negative); pH Urine 5 (5-7)
[2019-10-30 14:46] LABS: RBC Urine 0-4 /hpf (0-2)
[2019-10-30 14:47] LABS: Bacteria Urine 2+; Squamous Epithelial Cell Urine 0-4 (0-5)
[2019-10-30 14:48] LABS: Amorphous Sediment Urine 1+; Mucus Urine 2+
[2019-10-30 14:49] LABS: Add Urine Culture? Yes
[2019-10-30 15:56] LABS: Alanine Aminotransferase 14 U/L (0-33); Albumin Level 2.7 g/dL (3.5-5.2); Alkaline Phosphatase 131 IU/L (35-105); Anion Gap 23.8 (5-19); Aspartate Amino Transferase 15 U/L (0-32); Blood Urea Nitrogen 72 mg/dL (6-20); Calcium 8.7 mg/dL (8.5-10.5); Carbon Dioxide 15 mmol/L (22-29); Chloride 97 mmol/L (98-107); Creatine Phosphokinase 236 U/L (26-192); Globulin 3.3 g/dL (1.3-4.6); Glomerular Filtration Rate 2.8 mL/min (90-130); Glucose 130 mg/dL (65-115); Osmolality Calculated 275 mOsm/kg (285-295); Potassium 3.8 mmol/L (3.5-5.1); Sodium 132 mmol/L (136-145); Total Bilirubin 0.2 mg/dL (0.15-1.2)
[2019-10-30 15:57] LABS: Estmated Average Glucose 126
[2019-10-30 17:47] LABS: Hepatitis B Core AB, Total Non-Reactive (Nonreactive); Hepatitis B Surface AB 7.9 (0-8.5); Hepatitis B Surface Antigen Non-Reactive (Nonreactive)
[2019-10-30] MEDS: famotidine 20 mg/2 mL INJ IVP (18:17)
[2019-10-30] MEDS: lactated ringers 1,000 ML 125 ML IV (20:28)
[2019-10-31] VITALS: BP 103/63; PULSE 93; RESP 18; TEMP 37.4; O2SAT 95
[2019-10-31 04:00] VITALS: BP 113/70; PULSE 93; RESP 18; TEMP 36.9; O2SAT 95
[2019-10-31] MEDS: lactated ringers 1,000 ML 125 ML IV (04:24)
[2019-10-31 05:52] LABS: Basophils # 0.1 10^3/uL (0.0-0.1); Basophils % 0.6 %; Eosinophils # 0.2 10^3/uL (0.0-0.8); Eosinophils % 2.5 %; Hematocrit 28.9 % (37.0-47.0); Hemoglobin 9.5 g/dL (11.5-15.3); Lymphocytes # 1.9 10^3/uL (0.8-4.8); Lymphocytes % 19.3 %; Mean Corpuscular HGB Conc 32.9 g/dL (30.0-36.0); Mean Corpuscular Hemoglobin 28.9 pg (28.0-34.0); Mean Corpuscular Volume 87.8 fL (81-99); Mean Platelet Volume 9.6 fL (7.4-10.4); Monocytes # 0.9 10^3/uL (0.2-0.9); Monocytes % 8.7 %; Neutrophils % 61.7 %; Nucleated Red Blood Cells % 0 %; Platelet Count 318 10^3/cmm (130-400); Red Blood Count 3.29 10^6/uL (4.1-5.3); Red Cell Distribution Width 13.3 % (12.1-15.1); White Blood Count 9.7 10^3/uL (4.0-10.0)
[2019-10-31 06:13] LABS: Alanine Aminotransferase 13 U/L (0-33); Albumin Level 2.7 g/dL (3.5-5.2); Alkaline Phosphatase 117 IU/L (35-105); Anion Gap 24.9 (5-19); Aspartate Amino Transferase 14 U/L (0-32); Blood Urea Nitrogen 70 mg/dL (6-20); Calcium 8.5 mg/dL (8.5-10.5); Carbon Dioxide 13 mmol/L (22-29); Chloride 103 mmol/L (98-107); Globulin 2.2 g/dL (1.3-4.6); Glomerular Filtration Rate 2.8 mL/min (90-130); Glucose 100 mg/dL (65-115); Magnesium 1.5 mg/dL (1.7-2.3); Osmolality Calculated 283 mOsm/kg (285-295); Phosphorus 4.5 mg/dL (2.5-4.5); Potassium 3.9 mmol/L (3.5-5.1); Sodium 137 mmol/L (136-145); Total Bilirubin 0.2 mg/dL (0.15-1.2); Total Protein 4.9 g/dL (6.6-8.7)
[2019-10-31] MEDS: famotidine 20 mg/2 mL INJ IVP ×2 (06:18→17:11)
[2019-10-31 06:27] LABS: Calcium 7.7 mg/dL (8.5-10.5); Cortisol Random 16.66 mcg/dL (2.47-19.5)
[2019-10-31 06:48] LABS: Slide Review Slide Review Perform
--- NOTE | 2019-10-31 07:03 | PM.PN ---
Subjective Subjective: Interval history: weak, dec diarrhea. + h/a. no sob, cp. no abd pain. no urinary complaints. mild edema. Medications: Reviewed: Yes Medication Review Details: Current Medications Hydrocodone Bitart/Acetaminophen ([place] 5-325 Mg) 1 tab PO Q12H PRN PRN Reason: MODERATE PAIN Last Admin: 10/30/19 21:30 Dose: 1 tab Documented by: Albuterol Sulfate (Ventolin) 2 puff INHALATION Q4H.RESPIRATORY PRN PRN Reason: SHORTNESS OF BREATH Famotidine (Pepcid Inj) 20 mg IVP Q12H [facility] Last Admin: 10/31/19 06:18 Dose: 20 mg Documented by: Heparin Sodium (Beef Lung) (Heparin) 5,000 unit SUBCUT Q12H ELIESER Last Admin: 10/30/19 20:28 Dose: 5,000 unit Documented by: Ceftriaxone Sodium 1,000 mg/ (Sodium Chloride) 50 mls @ 100 mls/hr IV DAILY ELIESER; Protocol Last Infusion: 10/30/19 08:20 Dose: Infused Documented by: Lactated Ringer's (Lactated Ringers) 1,000 mls @ 125 mls/hr IV .Q8H ELIESER Last Admin: 10/31/19 04:24 Dose: 125 mls/hr Documented by: Loperamide HCl (Imodium Capsule) 2 mg PO Q12H PRN PRN Reason: DIARRHEA Ondansetron HCl (Zofran) 4 mg IVP Q6H PRN PRN Reason: NAUSEA AND VOMITING Vitals/I&O/Wt Last Vital Signs Temp 98.4 F 10/31/19 04:00 Pulse 93 10/31/19 04:00 Resp 18 10/31/19 04:00 BP 113/70 10/31/19 04:00 Pulse Ox 95 10/31/19 04:00 10/30/19 10/31/19 10/31/19 22:59 06:59 14:59 Intake Total 240 / 2170 1240 / 3410 Output Total 350 / 350 650 / 1000 Balance -110 / 1820 590 / 2410 Weight last 48 hrs Weight 116.29 kg Weight 106.594 kg Physical Exam Narrative: EXAM NARRATIVE: vs noted gen- obese, NARD, in bed- comfortable heent- nc/at, eomi, anicteric neck no jvp lungs CTA b/l heart reg, no rub abd -soft, nt, nd, BS ext- 1+ b/l leg edema from x 4 pulses weak DP/ PT pulses Urinary Catheter Management^: Caldwell: Cath Placed During This Visit: yes, but has since been removed by the nurse Reason for Continuing Indwelling Catheter: Acute Urinary Retention or Obstruction Urinary Catheter Date of Insertion: 10/29/19 Urinary Catheter Time of Insertion: 22:00 Date Urinary Catheter Removed: 10/31/19 Time Urinary Catheter Discontinued: 06:00 Data : 10/31/19 05:05 10/31/19 05:05 Micro: Microbiology 10/29/19 19:15 Blood Culture - Preliminary Blood NEGATIVE TO DATE 10/29/19 19:12 Blood Culture - Preliminary Blood NEGATIVE TO DATE 10/30/19 06:35 Enteric Pathogens (PCR) - Final Stool C.difficile Toxin B Gene (PCR) - Final A&P Additional A&P Information 59 yr old female 1. LAURA- please get old labs - follows w/ Dr. Grzegorz Garcia -laura from Prerenal azotemia vs atn- due to solmanella, profuse diarrhea, taking lisinopril, and not eating -no hydronephrosis on renal us or CT scan -monitor uop and chemistries -d/c caldwell- no obstruction -cont ivf - add bicarb to fluids. -protonix is also associated w/ renal insufficiency -monitor for uremic symptoms. may need dialysis soon -pth 92 w/ hypocalcemia- check vit d levels- may have CKD -given hematuria and lwukocytosis in urine- will check serologies -hep serologies negative 2. hyponatremia- likely prerenal- improved -cont ivf -check am cortisol level- 16.6 -normal -had low ur na on admission 3,inc AGMA- from starvation ketoacidosis and from laura. -normal lacatate -give bicarb 4. anemia- w/u per hospitalist - check spep/ sife meds reviewed discussed w/ pt, RN, and Dr. Moraes Attestations Medical Necessity Statement*: laura, met acidosis, anemia Time Spent in Patient Care: Greater than 35 minutes Coding Level of Care Code Acute Cash Processor for [facility]
[2019-10-31 07:56] VITALS: BP 106/60; PULSE 93; RESP 18; TEMP 37.3; O2SAT 92
[2019-10-31] MEDS: heparin 5,000 unit/mL INJ 1 mL 5000 UNIT SUBCUT ×2 (08:09→20:33)
[2019-10-31] MEDS: cefTRIAXone 1,000 MG in sodium chloride 0.9% (plus) 50 ML 100 MG IV (08:25)
[2019-10-31 11:33] VITALS: BP 132/80; PULSE 102; RESP 18; TEMP 37.1; O2SAT 95
--- NOTE | 2019-10-31 14:36 | PM.PN ---
Subjective Subjective: Interval history: Chart reviewed, had 650 mL urine output overnight. Slight improvement in renal function, normal K and Na, stable Hg. Gutiérrez catheter removed this AM. 1 BM today. VSS. Very pleasant but definitely not at her baseline, required assistance getting from bed to bedside commode primarily due to fatigue. She confesses that she is also concerned about her who has been dealing with a recent foot injury but understands visitor restrictions in place. Medications: Reviewed: Yes Medication Review Details: Active Medications Generic Name Dose Route Start Last Admin Trade Name Freq PRN Reason Stop Dose Admin Hydrocodone Bitart /Acetaminophen 1 tab 10/30/19 02:39 10/30/19 21:30 [place] 5-325 Mg PO 1 tab Q12H PRN Administration MODERATE PAIN Albuterol Sulfate 2 puff 10/30/19 15:12 Ventolin INHALATION Q4H.RESPIRATORY P RN SHORTNESS OF YANNA TH Famotidine 20 mg 10/30/19 18:00 10/31/19 06:18 Pepcid Inj IVP 20 mg Q12H ELIESER Administration Heparin Sodium (Be ef Lung) 5,000 unit 10/30/19 11:45 10/31/19 08:09 Heparin SUBCUT 5,000 unit Q12H ELIESER Administration Ceftriaxone Sodium 1,000 mg/ 50 mls @ 100 mls/ hr 10/30/19 09:00 10/31/19 08:25 Sodium Chloride IV 100 mls/hr DAILY ELIESER Administration Protocol Sodium Bicarbonate 75 meq/ 1,000 mls @ 120 m ls/hr 10/31/19 08:00 10/31/19 08:08 Sodium Chloride IV 120 mls/hr .Q8H20M ELIESER Administration Loperamide HCl 2 mg 10/30/19 11:45 Imodium Capsule PO Q12H PRN DIARRHEA Ondansetron HCl 4 mg 10/29/19 22:42 Zofran IVP Q6H PRN NAUSEA AND VOMITI NG codeine Allergy (Verified 10/29/19 16:26) ADR-Irritable sulfamethoxazole [From Bactrim] Allergy (Verified 10/29/19 16:26) ALGY-Hives tetracycline Allergy (Verified 10/29/19 16:26) Unknown trimethoprim [From Bactrim] Allergy (Verified 10/29/19 16:26) ALGY-Hives Vitals/I&O/Wt Last Vital Signs Temp 98.7 F 10/31/19 11:33 Pulse 102 H 10/31/19 11:33 Resp 18 10/31/19 11:33 BP 132/80 10/31/19 11:33 Pulse Ox 95 10/31/19 11:33 10/30/19 10/31/19 10/31/19 22:59 06:59 14:59 Intake Total 240 / 2170 1240 / 3410 840 / 840 Output Total 350 / 350 650 / 1000 200 / 200 Balance -110 / 1820 590 / 2410 640 / 640 Weight last 48 hrs Weight 116.29 kg Weight 106.594 kg Physical Exam Const: COMMON NORMALS: no acute distress, patient oriented x3 and alert GENERAL APPEARANCE: cooperative and comfortable NUTRITIONAL APPEARANCE: obese morbidly obese ORIENTATION/CONSCIOUSNESS: Yes awake OTHER: -appears fatigued HENMT: COMMON NORMALS: normocephalic, atraumatic, hearing grossly normal bilaterally and moist oral mucous membranes HEAD & SCALP: normocephalic and atraumatic Eye: COMMON NORMALS: Equal, round and reactive pupils present, EOMs intact bilaterally and conjunctivae normal CONJUNCTIVA: Yes conjunctivae normal PUPIL: Yes Equal, round and reactive pupils present Neck/C-Spine: COMMON NORMALS: full ROM GENERAL: Yes normal visual inspection and Yes trachea midline Resp: COMMON NORMALS: normal respiratory effort, No retractions, No use of accessory muscles and clear to auscultation bilaterally EFFORT & INSPECTION: Yes able to speak in complete sentences, Yes symmetric chest movement and No tachypneic AUSCULTATION: clear to auscultation bilaterally Cardio: COMMON NORMALS: regular rate, regular rhythm, S1 normal heart sound present, S2 normal heart sound present and No murmurs present (Cardio) RATE: regular rate RHYTHM: regular rhythm HEART SOUNDS: S1 normal heart sound present and S2 normal heart sound present GI: COMMON NORMALS: Normal to inspection, nondistended, normoactive bowel sounds present, Soft to palpation and non-tender INSPECTION: Yes central obesity PALPATION: Yes Soft to palpation Extremity: COMMON NORMALS: normal to inspection, full ROM, no clubbing, cyanosis or edema and no pedal edema Neuro: COMMON NORMALS: patient oriented x3, moves all extremities, no focal motor deficits, no sensory deficits noted and gait normal SENSORIUM/ORIENTATION: Yes alert Psych: COMMON NORMALS: mental status grossly normal, Normal thought process present, cooperative, normal affect and speech normal SPEECH: Yes normal speech THOUGHT PROCESS: Normal thought process present Skin: COMMON NORMALS: no rashes or lesions noted, no jaundice, no petechiae and no mottling GENERAL SKIN EXAM: no rashes or lesions noted Urinary Catheter Management^: Gutiérrez: Cath Placed During This Visit: yes, but has since been removed by the nurse Reason for Continuing Indwelling Catheter: Acute Urinary Retention or Obstruction Urinary Catheter Date of Insertion: 10/29/19 Urinary Catheter Time of Insertion: 22:00 Date Urinary Catheter Removed: 10/31/19 Time Urinary Catheter Discontinued: 06:00 Data : 10/31/19 05:05 10/31/19 05:05 Micro: Microbiology 10/30/19 14:20 Urine Culture - Preliminary Urine,Clean Catch 10/29/19 19:15 Blood Culture - Preliminary Blood NEGATIVE TO DATE 10/29/19 19:12 Blood Culture - Preliminary Blood NEGATIVE TO DATE 10/30/19 06:35 Enteric Pathogens (PCR) - Final Stool C.difficile Toxin B Gene (PCR) - Final A&P Assessment and plan (1) Renal failure: -appears to have at least some degree of CKD, no baseline labs to compare -significant acute renal impairment, oliguria likely multifactorial due to profuse diarrhea secondary to Salmonella enteritis, subsequent dehydration, CULLEN inhibitor use, poor oral intake -Continue to closely monitor renal function and urine output -Gutiérrez catheter discontinued this morning -Avoid nephrotoxins, renally dose meds -Nephrology consult appreciated -Continue to hold PPI -Renal ultrasound unremarkable -Hepatitis panel negative, AM cortisol wnl -Continue IVF Status: Acute Qualifiers: Acute renal failure type: unspecified Chronic kidney disease stage: unspecified stage Renal failure chronicity: acute on chronic Qualified Code(s): N17.9 - Acute kidney failure, unspecified; N18.9 - Chronic kidney disease, unspecified (2) Metabolic acidosis, increased anion gap: -on sodium bicarbonate -continue to monitor chemistry Status: Acute (3) Salmonella enteritis: -stool studies positive for Salmonella enteritis with evidence of diffuse colitis on imaging -on ceftriaxone -blood cx: negative Status: Acute (4) Colitis: -As noted above Status: Acute (5) Hypertension: -VSS; continue to monitor -ACEi on hold due to continued renal impairment Status: Chronic Qualifiers: Hypertension type: essential hypertension Qualified Code(s): I10 - Essential (primary) hypertension (6) Hyponatremia: Status: Resolved (7) Dehydration: -improving with IVF hydration Status: Acute Additional A&P Information -Morbid obesity: BMI-41 kg/m2 -Depression -hx of iron deficiency anemia -hypomagnesemia; replace as needed -renal diet as tolerated -DVT ppx with heparin -Dispo: home -Code status: FULL code Attestations Medical Necessity Statement*: Patient requires hospitalization for continued management of significant acute renal impairment with anion gap metabolic acidosis requiring continued monitoring of renal function, urine output and chemistry. Time Spent in Patient Care: Greater than 35 minutes (>than 50% of time spent in counselling and/or direct pt care on unit). Coding Level of Care Code Acute Digital Traffic Coordinator for g Fwd Exam Comprehensive Diagnoses Renal failure N17.9; N18.9 Acute renal failure type: unspecified Chronic kidney disease stage: unspecified stage Renal failure chronicity: acute on chronic Metabolic acidosis, increased anion gap E87.2 Salmonella enteritis A02.0 Colitis K52.9 Hypertension I10 Hypertension type: essential hypertension Hyponatremia E87.1 Dehydration E86.0
[2019-10-31 15:28] VITALS: BP 128/75; PULSE 103; RESP 18; TEMP 37.4; O2SAT 96
[2019-10-31 20:00] VITALS: BP 131/80; PULSE 104; RESP 20; TEMP 37.3; O2SAT 98
[2019-10-31] MEDS: HYDROcodone-acetaminophen 5-325 mg Tablet 1 TAB PO (22:50)
[2019-11-01] VITALS (8 sets, daily range): BP systolic 126–148; BP diastolic 75–86; PULSE 89–101; RESP 16–24; TEMP 37–37.3; O2SAT 97–100
[2019-11-01 05:59] LABS: Basophils # 0.1 10^3/uL (0.0-0.1); Basophils % 0.8 %; Eosinophils # 0.3 10^3/uL (0.0-0.8); Hematocrit 31.1 % (37.0-47.0); Hemoglobin 10.1 g/dL (11.5-15.3); Lymphocytes # 2.1 10^3/uL (0.8-4.8); Lymphocytes % 21.9 %; Mean Corpuscular HGB Conc 32.5 g/dL (30.0-36.0); Mean Corpuscular Hemoglobin 28.7 pg (28.0-34.0); Mean Corpuscular Volume 88.4 fL (81-99); Mean Platelet Volume 9.5 fL (7.4-10.4); Monocytes # 0.8 10^3/uL (0.2-0.9); Monocytes % 8.2 %; Neutrophils # 5.4 10^3/uL (1.8-7.7); Neutrophils % 55.4 %; Nucleated Red Blood Cells % 0 %; Platelet Count 362 10^3/cmm (130-400); Red Blood Count 3.52 10^6/uL (4.1-5.3); Red Cell Distribution Width 13.5 % (12.1-15.1); White Blood Count 9.7 10^3/uL (4.0-10.0)
[2019-11-01] MEDS: famotidine 20 mg/2 mL INJ IVP ×2 (06:01→18:57)
[2019-11-01 06:24] LABS: Ferritin 490 ng/mL (15-150); Iron 48 ug/dL (37-145); Magnesium 1.4 mg/dL (1.7-2.3); Percent Saturation 33.1 % (20-50); Phosphorus 4.3 mg/dL (2.5-4.5); Total Iron Binding Capacity 145 mcg/dl; Unsaturated Iron Binding 97 ug/dL (112-347)
[2019-11-01 06:25] LABS: Alanine Aminotransferase 12 U/L (0-33); Albumin Level 2.5 g/dL (3.5-5.2); Alkaline Phosphatase 117 IU/L (35-105); Anion Gap 19.3 (5-19); Aspartate Amino Transferase 16 U/L (0-32); Blood Urea Nitrogen 60 mg/dL (6-20); Calcium 8.6 mg/dL (8.5-10.5); Carbon Dioxide 20 mmol/L (22-29); Chloride 102 mmol/L (98-107); Globulin 2.9 g/dL (1.3-4.6); Glomerular Filtration Rate 4.1 mL/min (90-130); Glucose 138 mg/dL (65-115); Osmolality Calculated 287 mOsm/kg (285-295); Potassium 3.3 mmol/L (3.5-5.1); Sodium 138 mmol/L (136-145); Total Bilirubin 0.2 mg/dL (0.15-1.2); Total Protein 5.4 g/dL (6.6-8.7)
[2019-11-01 06:36] LABS: Slide Review Slide Review Perform
--- NOTE | 2019-11-01 07:36 | PM.PN ---
Subjective Subjective: Interval history: feels better. dec diarrhea. weak. no vernon. poor appetite, nausea. Medications: Reviewed: Yes Medication Review Details: Current Medications Hydrocodone Bitart/Acetaminophen ([place] 5-325 Mg) 1 tab PO Q12H PRN PRN Reason: MODERATE PAIN Last Admin: 10/31/19 22:50 Dose: 1 tab Documented by: Albuterol Sulfate (Ventolin) 2 puff INHALATION Q4H.RESPIRATORY PRN PRN Reason: SHORTNESS OF BREATH Famotidine (Pepcid Inj) 20 mg IVP Q12H [facility] Last Admin: 11/01/19 06:01 Dose: 20 mg Documented by: Heparin Sodium (Beef Lung) (Heparin) 5,000 unit SUBCUT Q12H [facility] Last Admin: 10/31/19 20:33 Dose: 5,000 unit Documented by: Ceftriaxone Sodium 1,000 mg/ (Sodium Chloride) 50 mls @ 100 mls/hr IV DAILY [facility]; Protocol Last Admin: 10/31/19 08:25 Dose: 100 mls/hr Documented by: Sodium Bicarbonate 75 meq/ (Sodium Chloride) 1,000 mls @ 120 mls/hr IV .Q8H20M [facility] Last Admin: 11/01/19 02:08 Dose: 120 mls/hr Documented by: Loperamide HCl (Imodium Capsule) 2 mg PO Q12H PRN PRN Reason: DIARRHEA Ondansetron HCl (Zofran) 4 mg IVP Q6H PRN PRN Reason: NAUSEA AND VOMITING Vitals/I&O/Wt Last Vital Signs Temp 98.6 F 11/01/19 03:55 Pulse 92 11/01/19 07:22 Resp 17 11/01/19 07:22 BP 127/78 11/01/19 03:55 Pulse Ox 99 11/01/19 07:22 10/31/19 11/01/19 11/01/19 22:59 06:59 14:59 Intake Total 1240 / 2080 1236 / 3316 Output Total 600 / 800 750 / 1550 Balance 640 / 1280 486 / 1766 Weight last 48 hrs Weight 116.29 kg Physical Exam Narrative: EXAM NARRATIVE: vs noted gen- obese, NARD, in bed- comfortable heent- nc/at, eomi, anicteric neck no jvp lungs CTA b/l heart reg, no rub abd -soft, nt, nd, BS ext- 1+ b/l leg edema from x 4 pulses weak DP/ PT pulses Urinary Catheter Management^: Caldwell: Cath Placed During This Visit: yes, but has since been removed by the nurse Reason for Continuing Indwelling Catheter: Acute Urinary Retention or Obstruction Urinary Catheter Date of Insertion: 10/29/19 Urinary Catheter Time of Insertion: 22:00 Date Urinary Catheter Removed: 10/31/19 Time Urinary Catheter Discontinued: 06:00 Data : 11/01/19 05:10 11/01/19 05:10 Micro: Microbiology 10/31/19 08:31 Enteric Pathogens (PCR) - Preliminary Stool 10/30/19 14:20 Urine Culture - Preliminary Urine,Clean Catch A&P Additional A&P Information 59 yr old female 1. LAURA- please get old labs - follows w/ Dr. Grzegorz Garcia -laura from Prerenal azotemia vs atn- due to solmanella, profuse diarrhea, taking lisinopril, and not eating -no hydronephrosis on renal us or CT scan -monitor uop and chemistries -caldwell out -cr improving -cont ivf - can remove bicarb -acidosis from LAURA and diarrhea is improving -protonix is also associated w/ renal insufficiency -monitor for further renal recovery -pth 92 w/ hypocalcemia- check vit d levels- may have CKD -given hematuria and lwukocytosis in urine- f/u serologies -hep serologies negative 2. hyponatremia- likely prerenal- improved -cont ivf -am cortisol level- 16.6 -normal -had low ur na on admission 2b. hypokalemia and hypomagnesemia- from diarrhea and post- ATN diuresis 3,inc AGMA- from starvation ketoacidosis and from laura. -normal lacatate -improved 4. hypocalcemia- monitor. corrects for hypoalbuminemia 5.anemia- w/u per hospitalist - check spep/ sife ferritin 490 % sat 33 meds reviewed discussed w/ pt, RN, and Dr. Moraes Attestations Medical Necessity Statement*: laura, electrolyte abnormalities, solmanellla enteritis Time Spent in Patient Care: 16 - 35 minutes Coding Level of Care Code Acute Supervisor Phosphoric Acid for Luis Lafleur
[2019-11-01] MEDS: lactated ringers 1,000 ML 100 ML IV (08:46)
[2019-11-01] MEDS: heparin 5,000 unit/mL INJ 1 mL 5000 UNIT SUBCUT ×2 (08:47→20:12)
[2019-11-01] MEDS: cefTRIAXone 1,000 MG in sodium chloride 0.9% (plus) 50 ML 100 MG IV (08:47)
--- NOTE | 2019-11-01 10:00 | PC.SOCIAL ---
IMM Update Pg 2 of IMM given and explained to patient who verbalized understanding.
[2019-11-01 12:10] LABS: Anti-streptolysin O 70 IU/mL (<200)
--- NOTE | 2019-11-01 13:17 | PM.PN ---
Subjective Subjective: Interval history: Overnight had 750 mL urine output, so far today has had 3 loose/watery bowel movements. AM labs noted, stable hemoglobin, noted improvement in renal function with creatinine down from 13.5->9.8; anion gap decreased as well, mild hypokalemia with a potassium of 3.3. Hemodynamically stable, afebrile. Switched to LR this morning. Magnesium and potassium replaced. Has had several more loose/watery bowel movements, oral intake is somewhat better today, seems more fatigued. Requesting supplementation of zinc and resumption of Pristiq if possible. Medications: Reviewed: Yes Medication Review Details: Active Medications Generic Name Dose Route Start Last Admin Trade Name Freq PRN Reason Stop Dose Admin Hydrocodone Bitart /Acetaminophen 1 tab 10/30/19 02:39 10/31/19 22:50 [place] 5-325 Mg PO 1 tab Q12H PRN Administration MODERATE PAIN Albuterol Sulfate 2 puff 10/30/19 15:12 Ventolin INHALATION Q4H.RESPIRATORY P RN SHORTNESS OF YANNA TH Famotidine 20 mg 10/30/19 18:00 11/01/19 06:01 Pepcid Inj IVP 20 mg Q12H ELIESER Administration Heparin Sodium (Be ef Lung) 5,000 unit 10/30/19 11:45 11/01/19 08:47 Heparin SUBCUT 5,000 unit Q12H ELIESER Administration Ceftriaxone Sodium 1,000 mg/ 50 mls @ 100 mls/ hr 10/30/19 09:00 11/01/19 08:47 Sodium Chloride IV 100 mls/hr DAILY ELIESER Administration Protocol Lactated Ringer's 1,000 mls @ 100 m ls/hr 11/01/19 07:45 11/01/19 10:00 Lactated Ringers IV 0 mls/hr .Q10H ELIESER Infusion Loperamide HCl 2 mg 10/30/19 11:45 Imodium Capsule PO Q12H PRN DIARRHEA Ondansetron HCl 4 mg 10/29/19 22:42 Zofran IVP Q6H PRN NAUSEA AND VOMITI NG codeine Allergy (Verified 10/29/19 16:26) ADR-Irritable sulfamethoxazole [From Bactrim] Allergy (Verified 10/29/19 16:26) ALGY-Hives tetracycline Allergy (Verified 10/29/19 16:26) Unknown trimethoprim [From Bactrim] Allergy (Verified 10/29/19 16:26) ALGY-Hives Vitals/I&O/Wt Last Vital Signs Temp 98.7 F 11/01/19 11:08 Pulse 92 11/01/19 11:08 Resp 20 H 11/01/19 11:08 BP 148/75 11/01/19 11:08 Pulse Ox 97 11/01/19 11:08 10/31/19 11/01/19 11/01/19 22:59 06:59 14:59 Intake Total 1240 / 2130 1236 / 3366 363.333 / 363.333 Output Total 600 / 800 750 / 1550 550 / 550 Balance 640 / 1330 486 / 1816 -186.667 / -186.667 Weight last 48 hrs Weight 116.29 kg Physical Exam Const: COMMON NORMALS: no acute distress, patient oriented x3 and alert GENERAL APPEARANCE: cooperative and comfortable NUTRITIONAL APPEARANCE: obese morbidly obese ORIENTATION/CONSCIOUSNESS: Yes awake OTHER: -appears fatigued HENMT: COMMON NORMALS: normocephalic, atraumatic, hearing grossly normal bilaterally and moist oral mucous membranes HEAD & SCALP: normocephalic and atraumatic Eye: COMMON NORMALS: Equal, round and reactive pupils present, EOMs intact bilaterally and conjunctivae normal CONJUNCTIVA: Yes conjunctivae normal PUPIL: Yes Equal, round and reactive pupils present Neck/C-Spine: COMMON NORMALS: full ROM GENERAL: Yes normal visual inspection and Yes trachea midline Resp: COMMON NORMALS: normal respiratory effort, No retractions, No use of accessory muscles and clear to auscultation bilaterally EFFORT & INSPECTION: Yes able to speak in complete sentences, Yes symmetric chest movement and No tachypneic AUSCULTATION: clear to auscultation bilaterally Cardio: COMMON NORMALS: regular rate, regular rhythm, S1 normal heart sound present, S2 normal heart sound present and No murmurs present (Cardio) RATE: regular rate RHYTHM: regular rhythm HEART SOUNDS: S1 normal heart sound present and S2 normal heart sound present GI: COMMON NORMALS: Normal to inspection, nondistended, normoactive bowel sounds present, Soft to palpation and non-tender INSPECTION: Yes central obesity PALPATION: Yes Soft to palpation Extremity: COMMON NORMALS: normal to inspection, full ROM, no clubbing, cyanosis or edema and no pedal edema Neuro: COMMON NORMALS: patient oriented x3, moves all extremities, no focal motor deficits, no sensory deficits noted and gait normal SENSORIUM/ORIENTATION: Yes alert Psych: COMMON NORMALS: mental status grossly normal, Normal thought process present, cooperative, normal affect and speech normal SPEECH: Yes normal speech THOUGHT PROCESS: Normal thought process present Skin: COMMON NORMALS: no rashes or lesions noted, no jaundice, no petechiae and no mottling GENERAL SKIN EXAM: no rashes or lesions noted Urinary Catheter Management^: Gutiérrez: Cath Placed During This Visit: yes, but has since been removed by the nurse Reason for Continuing Indwelling Catheter: Acute Urinary Retention or Obstruction Urinary Catheter Date of Insertion: 10/29/19 Urinary Catheter Time of Insertion: 22:00 Date Urinary Catheter Removed: 10/31/19 Time Urinary Catheter Discontinued: 06:00 Data : 11/01/19 05:10 11/01/19 05:10 Micro: Microbiology 10/31/19 08:31 Enteric Pathogens (PCR) - Preliminary Stool 10/30/19 14:20 Urine Culture - Preliminary Urine,Clean Catch A&P Assessment and plan (1) Renal failure: -appears to have at least some degree of CKD, no baseline labs to compare -significant acute renal impairment, oliguria likely multifactorial due to profuse diarrhea secondary to Salmonella enteritis, subsequent dehydration, CULLEN inhibitor use, poor oral intake -Continue to closely monitor renal function and urine output. Renal function is improving -Gutiérrez catheter discontinued this morning -Avoid nephrotoxins, renally dose meds -Nephrology consult appreciated -Continue to hold PPI -Renal ultrasound unremarkable -Hepatitis panel negative, AM cortisol wnl -Continue IVF Status: Acute Qualifiers: Acute renal failure type: unspecified Chronic kidney disease stage: unspecified stage Renal failure chronicity: acute on chronic Qualified Code(s): N17.9 - Acute kidney failure, unspecified; N18.9 - Chronic kidney disease, unspecified (2) Metabolic acidosis, increased anion gap: -off sodium bicarbonate; improved -continue to monitor chemistry Status: Acute (3) Salmonella enteritis: -stool studies positive for Salmonella enteritis with evidence of diffuse colitis on imaging -on ceftriaxone (day 3/7); would continue this as oral intake has been mediocre -blood cx: negative Status: Acute (4) Colitis: -As noted above -stool studies otherwise negative including C.difficile Status: Acute (5) UTI (urinary tract infection): -UA indicative of infection -urine cx: no growth -already on Ceftriaxone Status: Acute Qualifiers: Hematuria presence: without hematuria Urinary tract infection type: acute cystitis Qualified Code(s): N30.00 - Acute cystitis without hematuria (6) Hypertension: -VSS; continue to monitor -ACEi on hold due to continued renal impairment Status: Chronic Qualifiers: Hypertension type: essential hypertension Qualified Code(s): I10 - Essential (primary) hypertension (7) Hyponatremia: Status: Resolved (8) Dehydration: -improving with IVF hydration Status: Acute Additional A&P Information -Morbid obesity: BMI-41 kg/m2 -Depression; will resume desvenlafaxine (renally dosed) -hx of iron deficiency anemia; H/H stable -hypomagnesemia; replace as needed -renal diet as tolerated -GI ppx with famotidine -DVT ppx with heparin -Dispo: home -Code status: FULL code Attestations Medical Necessity Statement*: Patient requires hospitalization for continued management of acute on chronic renal failure, on IV fluid hydration, needs continued monitoring of renal function, continue treatment of salmonella gastroenteritis on IV antibiotics. Time Spent in Patient Care: 16 - 35 minutes (>than 50% of time spent in counselling and/or direct pt care on unit). Coding Level of Care Code Acute Director Network Development for g Fwd Exam Comprehensive Diagnoses Renal failure N17.9; N18.9 Acute renal failure type: unspecified Chronic kidney disease stage: unspecified stage Renal failure chronicity: acute on chronic Metabolic acidosis, increased anion gap E87.2 Salmonella enteritis A02.0 Colitis K52.9 UTI (urinary tract infection) N30.00 Hematuria presence: without hematuria Urinary tract infection type: acute cystitis Hypertension I10 Hypertension type: essential hypertension Hyponatremia E87.1 Dehydration E86.0
[2019-11-01 13:36] LABS: Anti-Double Strand DNA AB 6 IU/mL; Anti-Nuclear Antibody Screen NEGATIVE (NEGATIVE); SS A Ro Sjogrens Antibody <1.0 NEG AI (<1.0 NEG); SS-B/LA IGG <1.0 NEG AI (<1.0 NEG)
[2019-11-01 15:02] LABS: Creatinine, Random Urine 109 mg/dL (20-275); Protein, Total, Random 149 mg/dL (5-24); Protein/Creatinine Ratio 1.367 (0.021-0.161); Protein/Creatinine Ratio 1367 mg/g creat (21-161)
[2019-11-01] MEDS: lanolin oint 7 gm 1 APPLIC TOPICAL (15:07)
--- NOTE | 2019-11-01 18:36 | PC.NURSE ---
Shift Summary Pt has rested in bed most of the day and has had a better appetite today than previously. Transfers self to [facility]. Pt has had 3-4 loose/watery BMs. New IV established and fluids infusing at this time. Pt voiced concern about not having antidepressant medication for several days, Dr. Rizo aware. Pt is resting in bed and has no needs at this time.
[2019-11-01] MEDS: desvenlafaxine 50 mg Tablet PO (18:58)
[2019-11-01] MEDS: HYDROcodone-acetaminophen 5-325 mg Tablet 1 TAB PO (21:13)
[2019-11-02] VITALS (7 sets, daily range): BP systolic 128–145; BP diastolic 76–93; PULSE 80–97; RESP 18–20; TEMP 36.8–37.2; O2SAT 96–99
[2019-11-02] MEDS: lactated ringers 1,000 ML 100 ML IV ×2 (02:31→18:37)
[2019-11-02 05:56] LABS: Hematocrit 31.3 % (37.0-47.0); Hemoglobin 10.1 g/dL (11.5-15.3); Mean Corpuscular HGB Conc 32.3 g/dL (30.0-36.0); Mean Corpuscular Hemoglobin 28.6 pg (28.0-34.0); Mean Corpuscular Volume 88.7 fL (81-99); Mean Platelet Volume 9.2 fL (7.4-10.4); Nucleated Red Blood Cells % 0 %; Platelet Count 364 10^3/cmm (130-400); Positive C 1; Positive M 1; Red Blood Count 3.53 10^6/uL (4.1-5.3); Red Cell Distribution Width 13.6 % (12.1-15.1); White Blood Count 11.3 10^3/uL (4.0-10.0)
[2019-11-02 06:14] LABS: Creatine Phosphokinase 107 U/L (26-192)
[2019-11-02 06:15] LABS: Alanine Aminotransferase 11 U/L (0-33); Albumin Level 2.7 g/dL (3.5-5.2); Alkaline Phosphatase 121 IU/L (35-105); Anion Gap 18.6 (5-19); Aspartate Amino Transferase 17 U/L (0-32); Blood Urea Nitrogen 44 mg/dL (6-20); Calcium 8.6 mg/dL (8.5-10.5); Carbon Dioxide 20 mmol/L (22-29); Chloride 107 mmol/L (98-107); Globulin 2.7 g/dL (1.3-4.6); Glucose 118 mg/dL (65-115); Osmolality Calculated 293 mOsm/kg (285-295); Potassium 3.6 mmol/L (3.5-5.1); Sodium 142 mmol/L (136-145); Total Bilirubin 0.2 mg/dL (0.15-1.2); Total Protein 5.4 g/dL (6.6-8.7)
[2019-11-02 06:33] LABS: 25 Hydroxy Vitamin D 30 ng/mL (30-100); Magnesium 1.4 mg/dL (1.7-2.3); Phosphorus 3.4 mg/dL (2.5-4.5)
[2019-11-02 06:58] LABS: Slide Review Slide Review Perform
[2019-11-02 06:59] LABS: Absolute Eosinophils 0.2 10^3/cmm (0.0-0.7); Absolute Neutrophil 6.3 10^3/cmm (1.4-6.5); Absolute Segmented Neutrophil 6.1 10/cmm (1.6-7.1); Band Neutrophils Absolute 0.2 10^3/cmm (0.0-1.2); Eosinophils 2 %; Lymphocytes 28 %; Monocytes Absolute 0.7 10^3/cmm (0.1-0.6); Platelet Estimate Normal (Normal); Segmented Neutrophils 54 %; Total Cells Counted 100 (0-100)
--- NOTE | 2019-11-02 07:22 | PM.PN ---
Subjective Subjective: Interval history: c/o abd pain and diarrhea. poor appetite. +weak, no edema, no sob, no cp Medications: Reviewed: Yes Medication Review Details: Current Medications Hydrocodone Bitart/Acetaminophen ([place] 5-325 Mg) 1 tab PO Q12H PRN PRN Reason: MODERATE PAIN Last Admin: 11/01/19 21:13 Dose: 1 tab Documented by: Albuterol Sulfate (Ventolin) 2 puff INHALATION Q4H.RESPIRATORY PRN PRN Reason: SHORTNESS OF BREATH Desvenlafaxine (Pristiq) 50 mg PO Q48H [facility] Last Admin: 11/01/19 18:58 Dose: 50 mg Documented by: Famotidine (Pepcid Inj) 20 mg IVP Q12H [facility] Last Admin: 11/01/19 18:57 Dose: 20 mg Documented by: Heparin Sodium (Beef Lung) (Heparin) 5,000 unit SUBCUT Q12H [facility]IES[facility] Last Admin: 11/01/19 20:12 Dose: 5,000 unit Documented by: Ceftriaxone Sodium 1,000 mg/ (Sodium Chloride) 50 mls @ 100 mls/hr IV DAILY [facility]; Protocol Last Infusion: 11/01/19 09:15 Dose: 0 mls/hr Documented by: Lactated Ringer's (Lactated Ringers) 1,000 mls @ 100 mls/hr IV .Q10H [facility] Last Admin: 11/02/19 02:31 Dose: 100 mls/hr Documented by: Lanolin (Lanolin Oint) 1 applic TOPICAL PRN PRN PRN Reason: DRYNESS Last Admin: 11/01/19 15:07 Dose: 1 applic Documented by: Loperamide HCl (Imodium Capsule) 2 mg PO Q12H PRN PRN Reason: DIARRHEA Ondansetron HCl (Zofran) 4 mg IVP Q6H PRN PRN Reason: NAUSEA AND VOMITING Zinc Gluconate (Zinc Gluconate) 50 mg PO DAILY [facility] Last Admin: 11/01/19 18:58 Dose: Not Given Documented by: Vitals/I&O/Wt Last Vital Signs Temp 98.3 F 11/02/19 04:00 Pulse 80 11/02/19 04:00 Resp 20 H 11/02/19 04:00 BP 135/85 11/02/19 04:00 Pulse Ox 96 11/02/19 04:00 11/01/19 11/02/19 11/02/19 22:59 06:59 14:59 Intake Total 240 / 907.852 2531.667 / 1726.667 Output Total 550 / 1100 400 / 1500 Balance -310 / -450.000 676.667 / 226.667 Weight last 48 hrs Weight 95.753 kg Physical Exam Narrative: EXAM NARRATIVE: vs noted and stable - excellent uop gen- obese, NARD, in bed- comfortable heent- nc/at, eomi, anicteric neck no jvp lungs CTA b/l heart reg, no rub abd -soft, diffuse mild tenderness, nd, BS ext- minimal b/l leg edema from x 4 pulses weak DP/ PT pulses Urinary Catheter Management^: Caldwell: Cath Placed During This Visit: yes, but has since been removed by the nurse Reason for Continuing Indwelling Catheter: Acute Urinary Retention or Obstruction Urinary Catheter Date of Insertion: 10/29/19 Urinary Catheter Time of Insertion: 22:00 Date Urinary Catheter Removed: 10/31/19 Time Urinary Catheter Discontinued: 06:00 Data : 11/02/19 05:15 11/02/19 05:15 Micro: Microbiology 10/30/19 14:20 Urine Culture - Final Urine,Clean Catch 10/31/19 08:31 Enteric Pathogens (PCR) - Preliminary Stool A&P Additional A&P Information 59 yr old female 1. LAURA- please get old labs - follows w/ Dr. Grzegorz Garcia -laura from Prerenal azotemia vs atn- due to solmanella, profuse diarrhea, taking lisinopril, and not eating -no hydronephrosis on renal us or CT scan -monitor uop and chemistries -caldwell out -cr improving -acidosis from LAURA and diarrhea is stable- monitor, may need sodium bicarb -protonix is also associated w/ renal insufficiency -monitor for further renal recovery -pth 92 - vit d level 30, consider low dose oral vit d -given hematuria and lwukocytosis in urine- f/u serologies - neg so far- catracho, anti rho and la. antiDsDNA- indeterminate -hep serologies negative 2. hyponatremia- likely prerenal- improved -cont ivf -am cortisol level- 16.6 -normal -had low ur na on admission 3. hypokalemia and hypomagnesemia- from diarrhea and post- ATN diuresis -replete 4,inc AGMA- from starvation ketoacidosis and from laura. -normal lacatate -monitor, may need sodium bicarb 5. hypocalcemia- improved 6.anemia- w/u per hospitalist - check spep/ sife ferritin 490 % sat 33 7. diarrhea and abd pain as per hospitalist meds reviewed discussed w/ pt, RN Attestations Medical Necessity Statement*: laura, abd pain, colitis, electrolyte abnormalities Time Spent in Patient Care: 16 - 35 minutes Coding Level of Care Code Acute Mule Tender for Luis Lafleur
[2019-11-02] MEDS: famotidine 20 mg/2 mL INJ IVP ×2 (08:39→21:28)
[2019-11-02] MEDS: potassium chloride ER 10 mEq Tablet 40 MEQ PO (08:42)
[2019-11-02] MEDS: heparin 5,000 unit/mL INJ 1 mL 5000 UNIT SUBCUT ×2 (08:42→20:11)
[2019-11-02] MEDS: cholecalciferol (vitamin D3) 1,000 unit Tablet 1000 UNIT PO (08:43)
[2019-11-02] MEDS: cefTRIAXone 1,000 MG in sodium chloride 0.9% (plus) 50 ML 100 MG IV (10:51)
[2019-11-02 15:56] LABS: HEP C RNA Viral Load Quant <1.18 NOT DETECTED Log IU/mL (NOT DETECTED); HEP C RNA Viral Load Quant <15 NOT DETECTED IU/mL (NOT DETECTED)
--- NOTE | 2019-11-02 16:30 | P.PN_ITS ---
Subjective Subjective: Interval history: Patient seen and examined, reports feeling better today but continues to have frequent diarrhea, lost IV access again today, working on reestablishing this. She is really making an effort to hydrate orally with water. Other oral intake is fairly mediocre. Hemodynamically stable, afebrile, no acute overnight events reported. Creatinine continues to improve, down to 6.2 from 9.8 yesterday. Medications: Reviewed: Yes Medication Review Details: Active Medications Generic Name Dose Route Start Last Admin Trade Name Freq PRN Reason Stop Dose Admin Hydrocodone Bitart /Acetaminophen 1 tab 10/30/19 02:39 11/01/19 21:13 [place] 5-325 Mg PO 1 tab Q12H PRN Administration MODERATE PAIN Albuterol Sulfate 2 puff 10/30/19 15:12 Ventolin INHALATION Q4H.RESPIRATORY P RN SHORTNESS OF YANNA TH Desvenlafaxine 50 mg 11/01/19 18:30 11/01/19 18:58 Pristiq PO 50 mg Q48H [facility] Administration Famotidine 20 mg 10/30/19 18:00 11/02/19 08:39 Pepcid Inj IVP 20 mg Q12H [facility] Administration Heparin Sodium (Be ef Lung) 5,000 unit 10/30/19 11:45 11/02/19 08:42 Heparin SUBCUT 5,000 unit Q12H [facility] Administration Ceftriaxone Sodium 1,000 mg/ 50 mls @ 100 mls/ hr 10/30/19 09:00 11/02/19 10:51 Sodium Chloride IV 100 mls/hr DAILY [facility] Administration Protocol Lactated Ringer's 1,000 mls @ 100 m ls/hr 11/01/19 07:45 11/02/19 12:39 Lactated Ringers IV Infused .Q10H [facility] Infusion Magnesium Sulfate 1 gm/ Sodium 52 mls @ 104 mls/ hr 11/02/19 09:00 11/02/19 15:42 Chloride IV Infused BID [facility] Infusion Lanolin 1 applic 11/01/19 14:59 11/01/19 15:07 Lanolin Oint TOPICAL 1 applic PRN PRN Administration DRYNESS Loperamide HCl 2 mg 10/30/19 11:45 Imodium Capsule PO Q12H PRN DIARRHEA Ondansetron HCl 4 mg 10/29/19 22:42 Zofran IVP Q6H PRN NAUSEA AND VOMITI NG Vitamin D 1,000 unit 11/02/19 09:00 11/02/19 08:43 Vitamin D3 PO 1,000 unit DAILY [facility] Administration Zinc Gluconate 50 mg 11/01/19 18:15 11/02/19 08:44 Zinc Gluconate PO Not Given DAILY [facility] codeine Allergy (Verified 10/29/19 16:26) ADR-Irritable sulfamethoxazole [From Bactrim] Allergy (Verified 10/29/19 16:26) ALGY-Hives tetracycline Allergy (Verified 10/29/19 16:26) Unknown trimethoprim [From Bactrim] Allergy (Verified 10/29/19 16:26) ALGY-Hives Vitals/I&O/Wt Last Vital Signs Temp 98.2 F 11/02/19 15:42 Pulse 86 11/02/19 15:42 Resp 18 11/02/19 15:42 BP 145/93 11/02/19 15:42 Pulse Ox 98 11/02/19 15:42 11/02/19 11/02/19 11/02/19 06:59 14:59 22:59 Intake Total 1076.667 / 1047.704 5310 / 1340 52 / 1392 Output Total 400 / 1500 400 / 400 Balance 676.667 / 226.667 940 / 940 52 / 992 Weight last 48 hrs Weight 95.753 kg Physical Exam Const: COMMON NORMALS: no acute distress, patient oriented x3 and alert GENERAL APPEARANCE: cooperative and comfortable NUTRITIONAL APPEARANCE: obese morbidly obese ORIENTATION/CONSCIOUSNESS: Yes awake OTHER: -in better spirits today HENMT: COMMON NORMALS: normocephalic, atraumatic, hearing grossly normal bilaterally and moist oral mucous membranes HEAD & SCALP: normocephalic and atraumatic Eye: COMMON NORMALS: Equal, round and reactive pupils present, EOMs intact bilaterally and conjunctivae normal CONJUNCTIVA: Yes conjunctivae normal PUPIL: Yes Equal, round and reactive pupils present Neck/C-Spine: COMMON NORMALS: full ROM GENERAL: Yes normal visual inspection and Yes trachea midline Resp: COMMON NORMALS: normal respiratory effort, No retractions, No use of accessory muscles and clear to auscultation bilaterally EFFORT & INSPECTION: Yes able to speak in complete sentences, Yes symmetric chest movement and No tachypneic AUSCULTATION: clear to auscultation bilaterally Cardio: COMMON NORMALS: regular rate, regular rhythm, S1 normal heart sound present, S2 normal heart sound present and No murmurs present (Cardio) RATE: regular rate RHYTHM: regular rhythm HEART SOUNDS: S1 normal heart sound present and S2 normal heart sound present GI: COMMON NORMALS: Normal to inspection, nondistended, normoactive bowel sounds present, Soft to palpation and non-tender INSPECTION: Yes central obesity PALPATION: Yes Soft to palpation Extremity: COMMON NORMALS: normal to inspection, full ROM, no clubbing, cyanosis or edema and no pedal edema Neuro: COMMON NORMALS: patient oriented x3, moves all extremities, no focal motor deficits, no sensory deficits noted and gait normal SENSORIUM/ORIENTATION: Yes alert Psych: COMMON NORMALS: mental status grossly normal, Normal thought process present, cooperative, normal affect and speech normal SPEECH: Yes normal speech THOUGHT PROCESS: Normal thought process present Skin: COMMON NORMALS: no rashes or lesions noted, no jaundice, no petechiae and no mottling GENERAL SKIN EXAM: no rashes or lesions noted Urinary Catheter Management^: Gutiérrez: Cath Placed During This Visit: yes, but has since been removed by the nurse Reason for Continuing Indwelling Catheter: Acute Urinary Retention or Obstruction Urinary Catheter Date of Insertion: 10/29/19 Urinary Catheter Time of Insertion: 22:00 Date Urinary Catheter Removed: 10/31/19 Time Urinary Catheter Discontinued: 06:00 Data : 11/02/19 05:15 11/02/19 05:15 Micro: Microbiology 10/31/19 08:31 Enteric Pathogens (PCR) - Preliminary Stool Salmonella species Salmonella Paratyphi A 10/30/19 14:20 Urine Culture - Final Urine,Clean Catch A&P Assessment and plan (1) Renal failure: -appears to have at least some degree of CKD, no baseline labs to compare -significant acute renal impairment, oliguria likely multifactorial due to profuse diarrhea secondary to Salmonella enteritis, subsequent dehydration, CULLEN inhibitor use, poor oral intake -Continue to closely monitor renal function and urine output. Renal function is improving -Gutiérrez catheter discontinued and able to void independently without difficulty -Avoid nephrotoxins, renally dose meds -Nephrology consult appreciated -Continue to hold PPI -Renal ultrasound unremarkable -Hepatitis panel negative, AM cortisol wnl; serum immunofixation normal, negative TARYN, SS-A and SS-B antibodies negative, anti-dsDNA indeterminate -Continue IVF Status: Acute Qualifiers: Renal failure chronicity: acute on chronic Acute renal failure type: unspecified Chronic kidney disease stage: unspecified stage Qualified Code(s): N17.9 - Acute kidney failure, unspecified; N18.9 - Chronic kidney disease, unspecified (2) Metabolic acidosis, increased anion gap: -off sodium bicarbonate; improved -continue to monitor chemistry Status: Acute (3) Salmonella enteritis: -stool studies positive for Salmonella enteritis with evidence of diffuse colitis on imaging -on ceftriaxone (day 4/7); would continue this as oral intake has been mediocre -blood cx: negative Status: Acute (4) Colitis: -As noted above -stool studies otherwise negative including C.difficile Status: Acute (5) UTI (urinary tract infection): -UA indicative of infection -urine cx: no growth -already on Ceftriaxone Status: Acute Qualifiers: Urinary tract infection type: acute cystitis Hematuria presence: without hematuria Qualified Code(s): N30.00 - Acute cystitis without hematuria (6) Hypertension: -VSS; continue to monitor -ACEi on hold due to continued renal impairment Status: Chronic Qualifiers: Hypertension type: essential hypertension Qualified Code(s): I10 - Essential (primary) hypertension (7) Hyponatremia: Status: Resolved (8) Dehydration: -improving with IVF hydration Status: Acute Additional A&P Information -Morbid obesity: BMI-34 kg/m2 -Depression; on desvenlafaxine (renally dosed) -hx of iron deficiency anemia; H/H stable -hypomagnesemia; replace as needed -renal diet as tolerated -GI ppx with famotidine -DVT ppx with heparin -Dispo: home -Code status: FULL code Attestations Medical Necessity Statement*: Patient requires hospitalization for continued management of salmonella enteritis with associated dehydration and acute renal failure, on IV fluid hydration, IV antibiotics and needs continued close monitoring of renal function. Time Spent in Patient Care: 16 - 35 minutes (>than 50% of time spent in counselling and/or direct pt care on unit) . Coding Level of Care Code Acute Interlocking Tower Operator for Chg Fwd Diagnoses Renal failure N17.9; N18.9 Renal failure chronicity: acute on chronic Acute renal failure type: unspecified Chronic kidney disease stage: unspecified stage Metabolic acidosis, increased anion gap E87.2 Salmonella enteritis A02.0 Colitis K52.9 UTI (urinary tract infection) N30.00 Urinary tract infection type: acute cystitis Hematuria presence: without hematuria Hypertension I10 Hypertension type: essential hypertension Hyponatremia E87.1 Dehydration E86.0
[2019-11-02 16:52] LABS: Albumin,Urine Random 45 %; Alpha-1-Globulins Urine Random 3 %; Alpha-2-Globulins Urine Random 19 %; Beta-Globulin,Urine Random 14 %; Gamma Globulin,Urine Random 19 %
[2019-11-02] MEDS: HYDROcodone-acetaminophen 5-325 mg Tablet 1 TAB PO (18:35)
[2019-11-03] VITALS (8 sets, daily range): BP systolic 123–159; BP diastolic 76–91; PULSE 86–101; RESP 18–20; TEMP 36.6–36.9; O2SAT 96–99
[2019-11-03 03:47] LABS: Basophils # 0.1 10^3/uL (0.0-0.1); Basophils % 0.9 %; Eosinophils # 0.4 10^3/uL (0.0-0.8); Eosinophils % 3.1 %; Hematocrit 30.4 % (37.0-47.0); Hemoglobin 9.5 g/dL (11.5-15.3); Lymphocytes # 3.2 10^3/uL (0.8-4.8); Lymphocytes % 27.3 %; Mean Corpuscular HGB Conc 31.3 g/dL (30.0-36.0); Mean Corpuscular Volume 89.7 fL (81-99); Mean Platelet Volume 9.4 fL (7.4-10.4); Monocytes # 0.9 10^3/uL (0.2-0.9); Monocytes % 7.6 %; Neutrophils # 6.4 10^3/uL (1.8-7.7); Neutrophils % 54.6 %; Nucleated Red Blood Cells % 0 %; Platelet Count 357 10^3/cmm (130-400); Red Blood Count 3.39 10^6/uL (4.1-5.3); Red Cell Distribution Width 13.7 % (12.1-15.1); White Blood Count 11.7 10^3/uL (4.0-10.0)
[2019-11-03 04:22] LABS: Alanine Aminotransferase 11 U/L (0-33); Albumin Level 2.5 g/dL (3.5-5.2); Alkaline Phosphatase 116 IU/L (35-105); Anion Gap 15.7 (5-19); Aspartate Amino Transferase 17 U/L (0-32); Blood Urea Nitrogen 37 mg/dL (6-20); Calcium 8.6 mg/dL (8.5-10.5); Carbon Dioxide 19 mmol/L (22-29); Chloride 109 mmol/L (98-107); Globulin 2.7 g/dL (1.3-4.6); Glomerular Filtration Rate 10.9 mL/min (90-130); Glucose 113 mg/dL (65-115); Magnesium 1.9 mg/dL (1.7-2.3); Osmolality Calculated 288 mOsm/kg (285-295); Phosphorus 2.9 mg/dL (2.5-4.5); Potassium 3.7 mmol/L (3.5-5.1); Sodium 140 mmol/L (136-145); Total Bilirubin 0.2 mg/dL (0.15-1.2); Total Protein 5.2 g/dL (6.6-8.7)
[2019-11-03 05:31] LABS: Slide Review Slide Review Perform
--- NOTE | 2019-11-03 07:40 | PM.PN ---
Subjective Subjective: Interval history: seen and examined. feels better. wants to go home. diarrhea improving. no sob. no cp or vernon Medications: Reviewed: Yes Medication Review Details: Current Medications Albuterol Sulfate (Ventolin) 2 puff INHALATION Q4H.RESPIRATORY PRN PRN Reason: SHORTNESS OF BREATH Desvenlafaxine (Pristiq) 50 mg PO Q48H [facility] Last Admin: 11/01/19 18:58 Dose: 50 mg Documented by: Famotidine (Pepcid Inj) 20 mg IVP Q12H [facility] Last Admin: 11/02/19 21:28 Dose: 20 mg Documented by: Heparin Sodium (Beef Lung) (Heparin) 5,000 unit SUBCUT Q12H [facility] Last Admin: 11/02/19 20:11 Dose: 5,000 unit Documented by: Ceftriaxone Sodium 1,000 mg/ (Sodium Chloride) 50 mls @ 100 mls/hr IV DAILY [facility]; Protocol Last Infusion: 11/02/19 11:21 Dose: Infused Documented by: Lactated Ringer's (Lactated Ringers) 1,000 mls @ 100 mls/hr IV .Q10H [facility] Last Admin: 11/02/19 18:37 Dose: 100 mls/hr Documented by: Magnesium Sulfate 1 gm/ Sodium (Chloride) 52 mls @ 104 mls/hr IV BID [facility] Last Admin: 11/02/19 21:35 Dose: 104 mls/hr Documented by: Lanolin (Lanolin Oint) 1 applic TOPICAL PRN PRN PRN Reason: DRYNESS Last Admin: 11/01/19 15:07 Dose: 1 applic Documented by: Loperamide HCl (Imodium Capsule) 2 mg PO Q12H PRN PRN Reason: DIARRHEA Ondansetron HCl (Zofran) 4 mg IVP Q6H PRN PRN Reason: NAUSEA AND VOMITING Vitamin D (Vitamin D3) 1,000 unit PO DAILY [facility] Last Admin: 11/02/19 08:43 Dose: 1,000 unit Documented by: Zinc Gluconate (Zinc Gluconate) 50 mg PO DAILY [facility] Last Admin: 11/02/19 08:44 Dose: Not Given Documented by: Vitals/I&O/Wt Last Vital Signs Temp 98.5 F 11/03/19 04:00 Pulse 96 11/03/19 04:00 Resp 18 11/03/19 04:00 BP 123/76 06/11/20 04:00 Pulse Ox 96 11/03/19 04:00 11/02/19 11/03/19 11/03/19 22:59 06:59 14:59 Intake Total 52 / 1442 Output Total 1000 / 1400 Balance 52 / 1042 -1000 / 42 Weight last 48 hrs Weight 96.842 kg Weight 95.753 kg Physical Exam Narrative: EXAM NARRATIVE: vs noted and stable - excellent uop gen- obese, NARD, in bed- comfortable heent- nc/at, eomi, anicteric neck no jvp lungs CTA b/l heart reg, no rub abd -soft, less tender, nd, BS ext- minimal b/l leg edema from x 4 pulses weak DP/ PT pulses neuro -a,a, o x3 Urinary Catheter Management^: Caldwell: Cath Placed During This Visit: yes, but has since been removed by the nurse Reason for Continuing Indwelling Catheter: Acute Urinary Retention or Obstruction Urinary Catheter Date of Insertion: 10/29/19 Urinary Catheter Time of Insertion: 22:00 Date Urinary Catheter Removed: 10/31/19 Time Urinary Catheter Discontinued: 06:00 Data : 11/03/19 03:03 11/03/19 03:03 Micro: Microbiology 10/31/19 08:31 Enteric Pathogens (PCR) - Preliminary Stool Salmonella species Salmonella Paratyphi A A&P Additional A&P Information 59 yr old female 1. LAURA- please get old labs - follows w/ Dr. Grzegorz Garcia -laura from Prerenal azotemia vs atn- due to solmanella, profuse diarrhea, taking lisinopril, and not eating -no hydronephrosis on renal us or CT scan -monitor uop and chemistries -caldwell out -cr improving -acidosis from LAURA and diarrhea is stable- monitor, may need sodium bicarb - will hold for now -protonix is also associated w/ renal insufficiency -monitor for further renal recovery -pth 92 - vit d level 30, low dose oral vit d -given hematuria and lwukocytosis in urine- f/u serologies - neg so far- catracho, anti rho and la. antiDsDNA- indeterminate -hep serologies negative 2. hyponatremia- likely prerenal- improved 3. hypokalemia and hypomagnesemia- from diarrhea and post- ATN diuresis -improving, replete as needed 4,inc AGMA- from starvation ketoacidosis and from laura. -normal lacatate -monitor, may need sodium bicarb 5. hypocalcemia- improved 6.anemia- w/u per hospitalist - check spep/ sife ferritin 490 % sat 33 7. diarrhea and abd pain as per hospitalist meds reviewed renal okay for d/c- if she is eating and drinking fluids. have her see PCP on Thursday and check chemistries discussed w/ pt, RN Attestations Medical Necessity Statement*: per hospitalist Time Spent in Patient Care: 16 - 35 minutes Coding Level of Care Code Acute Machinery Rigger for Luis Lafleur
[2019-11-03] MEDS: cholecalciferol (vitamin D3) 1,000 unit Tablet 1000 UNIT PO (08:27)
[2019-11-03] MEDS: cefTRIAXone 1,000 MG in sodium chloride 0.9% (plus) 50 ML 100 MG IV (08:27)
[2019-11-03] MEDS: heparin 5,000 unit/mL INJ 1 mL 5000 UNIT SUBCUT (08:27)
[2019-11-03] MEDS: potassium chloride ER 10 mEq Tablet 20 MEQ PO (08:27)
[2019-11-03] MEDS: famotidine 20 mg/2 mL INJ IVP (09:00)
[2019-11-03] MEDS: lactated ringers 1,000 ML 100 ML IV (11:23)
--- NOTE | 2019-11-03 11:58 | DCPLANNER ---
Pg 2 of IM updated and reviewed with pt. No questions, copy provided.
--- NOTE | 2019-11-03 14:57 | P.DS_ITS ---
Discharge Providers Date of Admission: 10/29/19 21:08 Date of Discharge: November 03, 2019 Attending Provider at Admission: Brian Eaton MD Attending Provider at Discharge: Rosario Rizo MD Primary Care Provider: Grzegorz Garcia DO Diagnoses at Discharge Discharge Diagnosis (1) Renal failure: Status: Acute Problem details: -appears to have at least some degree of CKD, no baseline labs to compare -significant acute renal impairment, oliguria likely multifactorial due to profuse diarrhea secondary to Salmonella enteritis, subsequent dehydration, CULLEN inhibitor use, poor oral intake -Continue to closely monitor renal function and urine output. Renal function is improving -Gutiérrez catheter discontinued and able to void independently without difficulty -Avoid nephrotoxins, renally dose meds -Nephrology consult appreciated -Continue to hold PPI -Renal ultrasound unremarkable -Hepatitis panel negative, AM cortisol wnl; serum immunofixation normal, negative TARYN, SS-A and SS-B antibodies negative, anti-dsDNA indeterminate -Continue IVF Qualifiers: Acute renal failure type: unspecified Chronic kidney disease stage: unspecified stage Renal failure chronicity: acute on chronic Qualified Code(s): N17.9 - Acute kidney failure, unspecified; N18.9 - Chronic kidney disease, unspecified (2) Metabolic acidosis, increased anion gap: Status: Acute Problem details: -off sodium bicarbonate; improved -continue to monitor chemistry (3) Salmonella enteritis: Status: Acute Problem details: -stool studies positive for Salmonella enteritis with evidence of diffuse colitis on imaging -on ceftriaxone (day 5/7); would continue this as oral intake has been mediocre; will d/c on ciprofloxacin for dual coverage, to complete treatment course -blood cx: negative (4) Colitis: Status: Acute Problem details: -As noted above -stool studies otherwise negative including C.difficile (5) UTI (urinary tract infection): Status: Acute Problem details: -UA indicative of infection -urine cx: no growth -already on Ceftriaxone Qualifiers: Hematuria presence: without hematuria Urinary tract infection type: acute cystitis Qualified Code(s): N30.00 - Acute cystitis without hematuria (6) Hypertension: Status: Chronic Problem details: -VSS; continue to monitor -ACEi on hold due to continued renal impairment Qualifiers: Hypertension type: essential hypertension Qualified Code(s): I10 - Essential (primary) hypertension (7) Hyponatremia: Status: Resolved (8) Dehydration: Status: Acute Other Information Additional DC diagnoses/information: -Morbid obesity: BMI-34 kg/m2 -Depression; on desvenlafaxine (renally dosed) -hx of iron deficiency anemia; H/H stable -hypomagnesemia; replace as needed Reason for Visit Reason for Visit: profuse diarrhea Hospital Course Hospital Course: Patient was admitted to the medical surgical floor and received aggressive IV fluid hydration secondary to dehydration as well as broad-spectrum IV antibiotics for gastroenteritis and a UTI. She was found to have evidence of significant acute renal impairment so renal function was closely monitored throughout her hospital stay with nephrology on board. This has improved consistently with IV fluid hydration and treatment of salmonella enteritis. Stool studies were otherwise negative. She continues to have diarrhea though not quite as profuse and her oral intake is improving as well. CULLEN inhibitor, Protonix, and opiates were held to allow for renal recovery. Electrolytes were monitored and replaced as needed. She has been hemodynamically stable, consistently afebrile. Urine cultures have been negative and she was maintained on IV antibiotics due to the severity of diarrhea as well as poor oral intake initially. She will be prescribed ciprofloxacin for dual coverage of UTI and Salmonella enteritis to complete her treatment course. She did not require dialysis and I anticipate that her renal function will continue to improve until she returns to her baseline. She has been cleared for discharge today by nephrology with close follow-up with her primary care provider, preferably on Thursday for repeat lab work to continue to monitor her renal function. She is encouraged to continue to hydrate primarily with water. Discharge Summary: -Patient to follow up with primary care physician in 1-3 days; will need follow up labs to continue to monitor renal function Physical Exam Const: COMMON NORMALS: no acute distress, patient oriented x3 and alert GENERAL APPEARANCE: cooperative and comfortable NUTRITIONAL APPEARANCE: obese morbidly obese ORIENTATION/CONSCIOUSNESS: Yes awake OTHER: -in good spirits today HENMT: COMMON NORMALS: normocephalic, atraumatic, hearing grossly normal bilaterally and moist oral mucous membranes HEAD & SCALP: normocephalic and a traumatic Eye: COMMON NORMALS: Equal, round and reactive pupils present, EOMs intact bilaterally and conjunctivae normal CONJUNCTIVA: Yes conjunctivae normal PUPIL: Yes Equal, round and reactive pupils present Neck/C-Spine: COMMON NORMALS: full ROM GENERAL: Yes normal visual inspection and Yes trachea midline Resp: COMMON NORMALS: normal respiratory effort, No retractions, No use of accessory muscles and clear to auscultation bilaterally EFFORT & INSPECTION: Yes able to speak in complete sentences, Yes symmetric chest movement and No tachypneic AUSCULTATION: clear to auscultation bilaterally Cardio: COMMON NORMALS: regular rate, regular rhythm, S1 normal heart sound present, S2 normal heart sound present and No murmurs present (Cardio) RATE: regular rate RHYTHM: regular rhythm HEART SOUNDS: S1 normal heart sound present and S2 normal heart sound present GI: COMMON NORMALS: Normal to inspection, nondistended, normoactive bowel sounds present, Soft to palpation and non-tender INSPECTION: Yes central obesity PALPATION: Yes Soft to palpation Extremity: COMMON NORMALS: normal to inspection, full ROM, no clubbing, cyanosis or edema and no pedal edema Neuro: COMMON NORMALS: patient oriented x3, moves all extremities, no focal motor deficits, no sensory deficits noted and gait normal SENSORIUM/ORIENTATION: Yes alert Psych: COMMON NORMALS: mental status grossly normal, Normal thought process present, cooperative, normal affect and speech normal SPEECH: Yes normal speech THOUGHT PROCESS: Normal thought process present Skin: COMMON NORMALS: no rashes or lesions noted, no jaundice, no petechiae and no mottling GENERAL SKIN EXAM: no rashes or lesions noted Urinary Catheter Management^: Gutiérrez: Cath Placed During This Visit: yes, but has since been removed by the nurse Reason for Continuing Indwelling Catheter: Acute Urinary Retention or Obstruction Urinary Catheter Date of Insertion: 10/29/19 Urinary Catheter Time of Insertion: 22:00 Date Urinary Catheter Removed: 10/31/19 Time Urinary Catheter Discontinued: 06:00 Discharge Data Data Completed and Pending: Completed Studies During Hospitalization Category Date Time Status CT abdomen pelvis wo con [id number] Urge nt Cat Scan 10/29/19 18:41 Completed US renal BI with bladder Routine Ultrasound 10/30/19 07:31 Completed Pending at discharge Category Date Time Status Anti-Neutrophil C utoplasmic AB Rout ine Lab 10/31/19 05:05 Received Blood Culture Sta t Lab 10/29/19 19:15 Results Comprehensive Met abolic Panel AM LILO JIMENEZ Lab 11/04/19 04:00 Ordered Comprehensive Met abolic Panel AM LILO JIMENEZ Lab 11/05/19 04:00 Ordered Enteric Bacterial Panel by PCR Stat Lab 10/31/19 08:31 Results Magnesium AM LABS Lab 11/04/19 04:00 Ordered Magnesium AM LABS Lab 11/05/19 04:00 Ordered Magnesium AM LABS Lab 11/06/19 04:00 Ordered Miscellaneous Sammie t Stat Lab 10/31/19 05:05 Received OVA and Parasites , Conc and PE Rout ine Lab 10/29/19 22:42 Received Phosphorus AM LAB S Lab 11/04/19 04:00 Ordered Phosphorus AM LAB S Lab 11/05/19 04:00 Ordered Phosphorus AM LAB S Lab 11/06/19 04:00 Ordered Urine Random Lyte s Routine Lab 10/30/19 13:01 Ordered Labs from last 24 hours 11/03/19 11/03/19 10/30/19 03:03 03:03 15:10 WBC 11.7 H RBC 3.39 L Hgb 9.5 L Hct 30.4 L MCV 89.7 MCH 28.0 MCHC 31.3 RDW 13.7 Plt Count 357 MPV 9.4 Neut % (Auto) 54.6 Lymph % (Auto) 27.3 [place] % (Auto) 7.6 Eos % (Auto) 3.1 Baso % (Auto) 0.9 Neut # (Auto) 6.4 Lymph # (Auto) 3.2 [place] # (Auto) 0.9 Eos # (Auto) 0.4 Baso # (Auto) 0.1 Nucleated RBC % (a uto) 0 Nucleated RBCs # 0.0 Sodium 140 Potassium 3.7 Chloride 109 H Carbon Dioxide 19 L Anion Gap 15.7 BUN 37 H Creatinine 4.2 H GFR Calculation 10.9 L Glucose 113 Calculated Osmolal ity 288 Calcium 8.6 Phosphorus 2.9 Magnesium 1.9 Total Bilirubin 0.2 AST 17 ALT 11 Alkaline Phosphata se 116 H Total Protein 5.2 L Albumin 2.5 L Globulin 2.7 Ur Random Albumin U Random a-1-Globu jennifer % U Random a-2-Globu jennifer % U Random Beta Glob ulin U Random Gamma Adore b Urine PEP Interpre t HCV RNA (PCR) IUs/ ml <1.18 not detecte d HCV RNA (PCR) IU l og10 <15 not detected 10/30/19 11:52 WBC RBC Hgb Hct MCV MCH MCHC RDW Plt Count MPV Neut % (Auto) Lymph % (Auto) [place] % (Auto) Eos % (Auto) Baso % (Auto) Neut # (Auto) Lymph # (Auto) [place] # (Auto) Eos # (Auto) Baso # (Auto) Nucleated RBC % (a uto) Nucleated RBCs # Sodium Potassium Chloride Carbon Dioxide Anion Gap BUN Creatinine GFR Calculation Glucose Calculated Osmolal ity Calcium Phosphorus Magnesium Total Bilirubin AST ALT Alkaline Phosphata se Total Protein Albumin Globulin Ur Random Albumin 45 U Random a-1-Globu jennifer % 3 U Random a-2-Globu jennifer % 19 U Random Beta Glob ulin 14 U Random Gamma Adore b 19 Urine PEP Interpre t See note HCV RNA (PCR) IUs/ ml HCV RNA (PCR) IU l og10 Vitals: Last Vital Signs Temp 98.4 F 11/03/19 11:16 Pulse 86 11/03/19 11:16 Resp 18 11/03/19 11:16 BP 127/81 11/03/19 11:16 Pulse Ox 98 11/03/19 11:16 Discharge Plan Discharge Patient Disposition: Home, Self-Care Condition: Stable Prescriptions: New loperamide 2 mg Capsule 2 mg PO Q12H PRN (Reason: Diarrhea) 30 Days Qty: 60 RF: 0 zinc gluconate 50 mg Tablet 50 mg PO DAILY 30 Days Qty: 30 RF: 0 Pristiq 50 mg Tablet Extended Release 24 Hr 50 mg PO Q48H 30 Days Qty: 15 RF: 0 ciprofloxacin HCl 500 mg tablet 500 mg PO BID 7 Days Qty: 14 RF: 0 Continued Multiple Vitamins Tablet 1 tab PO DAILY RF: 0 hydrocodone-acetaminophen 10-325 mg tablet 1 - 2 tab PO Q6H PRN (Reason: Pain) RF: 0 zolpidem 5 mg tablet 5 mg PO BEDTIME PRN (Reason: Sleep) RF: 0 Calcium 500 1 tab PO DAILY RF: 0 Discontinued lisinopril 20 mg tablet 20 mg PO DAILY RF: 0 pantoprazole 40 mg tablet,delayed release (DR/EC) 40 mg PO BID RF: 0 desvenlafaxine succinate 100 mg tablet extended release 24 hr 100 mg PO DAILY RF: 0 fentanyl 25 mcg/hr Patch 72 Hour See Rx Instructions .ROUTE .COMPLEX RF: 0 Discharge Orders: Discharge Order (Routine); Ordered 11/03/19 Ordered By: Rosario Rizo Referrals: Grzegorz Garcia DO [Primary Care Provider] - 1-3 days (Post hospital discharge follow up. Will need f/u BMP to continue to monitor renal function as she had significant LAURA secondary to Salmonella enteritis.) Discharge Diet: Advance as tolerated Discharge Activity: Increase activity as tolerated Patient Instructions: Ciprofloxacin (By mouth), Loperamide (By mouth), Desvenlafaxine (By mouth), Salmonella Infection (GEN) Discharge Attestations Time Spent in Discharge Care*: greater than 30 min Specific Discharge Activities: Specific discharge activities: educating patient, discussing with case liner/social workers/dc planners, documenting/other paperwork and evaluating patient/reviewing data Status at Discharge: Cognitive status at discharge: cognitively intact , Behavioral status at discharge: cooperative , Functional status at discharge: independent ambulation Overall status at discharge: patient is progressing back to baseline Quality Metrics Clinical Quality Measures During this hospital stay, did patient experience: None Coding Level of Care Code Acute Medical Sales Associate for g Fwd Exam Comprehensive Diagnoses Renal failure N17.9; N18.9 Acute renal failure type: unspecified Chronic kidney disease stage: unspecified stage Renal failure chronicity: acute on chronic Metabolic acidosis, increased anion gap E87.2 Salmonella enteritis A02.0 Colitis K52.9 UTI (urinary tract infection) N30.00 Hematuria presence: without hematuria Urinary tract infection type: acute cystitis Hypertension I10 Hypertension type: essential hypertension Hyponatremia E87.1 Dehydration E86.0
[2019-11-06 11:56] LABS: ANCA Interp Negative (Negative)
== END 2019-11-03 17:10 | disposition home or self-care (01) | DRG 372 ==
LOC: ER 20:50 → MEDSURG 21:35
PROVIDERS: Emergency Medicine; Internal Medicine Nephrology; Nurse Practitioner Family; Physician Assistant; Student in an Organized Health Care Education/Training Program; Admitting Provider Internal Medicine; PCP Electrodiagnostic Medicine; Visit Provider Family Medicine
DX: A02.0 Salmonella enteritis (principal); N17.9 Acute kidney failure, unspecified; E87.1 Hypo-osmolality and hyponatremia; E87.2 Acidosis; N30.01 Acute cystitis with hematuria; I95.9 Hypotension, unspecified; E86.0 Dehydration; J45.909 Unspecified asthma, uncomplicated; F32.9 Major depressive disorder, single episode, unspecified; D50.9 Iron deficiency anemia, unspecified; Z87.891 Personal history of nicotine dependence; I12.9 Hypertensive chronic kidney disease with stage 1 through stage 4 chronic kidney disease, or unspecified chronic kidney disease; N18.9 Chronic kidney disease, unspecified; E66.8 Other obesity; Z68.34 Body mass index [BMI] 34.0-34.9, adult; E83.42 Hypomagnesemia
CPT/HCPCS: 12345; 36415; 51702; 74176; 76770; 76857; 80048; 80053; 81001; 82306; 82310; 82436; 82533; 82550; 82570; 82728; 83036; 83516; 83540; 83550; 83605; 83690; 83735; 83970; 84100; 84133; 84145; 84260; 84300; 84443; 84484; 85007; 85025; 85999; 86038; 86060; 86225; 86235; 86677; 86705; 86706; 87040; 87086; 87177; 87186; 87209; 87340; 87493; 87506; 87522; 93005; 94664; 96372; 96375; 99283; J0696; J0744; J1644; J3475; J3490; J7030; Q3014; S0030

== ENCOUNTER 2019-11-07 12:41 | Outpatient (CLI) | payer MEDICARE, SELFPAY ==
--- NOTE | 2019-11-07 12:48 | XR_ITS ---
WS: [id number] XR chest 2V* [id number] REASON FOR EXAM: DYSPNEA FINDINGS: Blunting of the right costophrenic angle with low-grade alveolar infiltrate in the right dari ng base. There is also small amount of left pleural effusion noted. The heart is normal. A mild scoliotic curve convex to the left. XR/XR chest 2V* [id number] IMPRESSION: Low-grade pneumonia right lung base Small amounts of bilateral pleural effusion.
== END 2019-11-07 12:42 | disposition home or self-care (01) ==
LOC: RAD 12:45
PROVIDERS: PCP Electrodiagnostic Medicine; Visit Provider Family Medicine
DX: R06.00 Dyspnea, unspecified (principal); J90 Pleural effusion, not elsewhere classified
CPT/HCPCS: 71046

== ENCOUNTER 2020-09-04 10:09 | Outpatient (CLI) | payer MEDICARE, SELFPAY ==
--- NOTE | 2020-09-04 10:18 | XRR_ITS ---
PROCEDURE INFORMATION: Exam: XR Right Foot Exam date and time: 09/04/2020 10:21 AM Age: 60 years old Clinical indication: Pain; Foot; Right; Additional info: R foot pain TECHNIQUE: Imaging protocol: XR Right foot. Views: 3 or more views. COMPARISON: CR Foot 3 views, RIGHT* [id number] 03/31/2017 3:44 PM FINDINGS: Bones/joints: Hindfoot-midfoot and midfoot-forefoot articulations normal. Metatarsals and phalanges without an acute process. Subtalar and tibiotalar joint normal. Mild degenerative changes at the first metatarsal phalangeal joint. Mild soft tissue swelling about the joint space medially. Large spur formation at the insertion of the Achilles' tendon and plantar aponeurosis. Soft tissues: Normal. XR/XR foot RT min 3V* [id number] IMPRESSION: Large spur formation at the insertion of the Achilles' tendon and plantar aponeurosis.
== END 2020-09-04 10:10 | disposition home or self-care (01) ==
PROVIDERS: PCP Electrodiagnostic Medicine; Visit Provider Electrodiagnostic Medicine
DX: M79.671 Pain in right foot (principal)
CPT/HCPCS: 73630

== ENCOUNTER 2020-11-06 08:56 | Outpatient (CLI) | payer MEDICARE, SELFPAY ==
--- NOTE | 2020-11-06 09:07 | MM_ITS ---
WS: [id number] BILATERAL SCREENING DIGITAL MAMMOGRAM WITH CAD HISTORY: Screening. COMPARISON: 04/16/2012 Bilateral CC and MLO views submitted. Computer aided detection analyzed. Breast composition: There are scattered areas of fibroglandular density. No suspicious masses, microc alcifications or architectural distortion. MM/[place] [id number] IMPRESSION: BI-RADS: 1-Negative FOLLOW UP: 1 Year Follow-up
== END 2020-11-06 08:57 | disposition home or self-care (01) ==
LOC: RADSHAW 09:00
PROVIDERS: PCP Electrodiagnostic Medicine; Visit Provider Electrodiagnostic Medicine
DX: Z12.31 Encounter for screening mammogram for malignant neoplasm of breast (principal)
CPT/HCPCS: 77067

== ENCOUNTER 2021-03-11 12:06 | Outpatient (CLI) | payer MEDICARE, SELFPAY ==
--- NOTE | 2021-03-11 12:27 | XR_ITS ---
WS: [id number] Lumbar spine, 3 views, 03/11/2021. Clinical Data: LUMBAR BACK PAIN W/RADICULOPATHY Comparison: Lumbar spine, 01/24/2014. Findings: The patient has had a posterior lumbar fusion with bilateral pedicle screws and connecting rods at L5 -S1. There is an artificial disc at L5-S1. There is a laminectomy at L5. There are clips in the right uppe r quadrant from a cholecystectomy. There is a large amount of fecal material throughout the colon. XR/XR lumbar spine 2-3V* [id number] Impression: 1. Intact posterior lumbar fusion at L5-S1 with artificial disc at L5-S1. 2. No change from prior lumbar spine.
== END 2021-03-11 12:07 | disposition home or self-care (01) ==
LOC: RAD 12:11
PROVIDERS: PCP Electrodiagnostic Medicine; Visit Provider Electrodiagnostic Medicine
DX: M54.16 Radiculopathy, lumbar region (principal); M43.27 Fusion of spine, lumbosacral region
CPT/HCPCS: 72100

== ENCOUNTER 2021-04-12 14:55 | Outpatient (CLI) | payer MEDICARE, SELFPAY ==
--- NOTE | 2021-04-12 15:15 | MR_ITS ---
WS: [id number] MRI LUMBAR SPINE NONCONTRAST HISTORY: BACK PAIN, LUMBAR W RADICULOPATHY; URINARY INCONTINENCE COMPARISON: 12/09/2012 TECHNIQUE: Sagittal and axial multisequence imaging is submitted. Prior posterior lumbar fusion at L5-S1. Interbody spacers present at L5-S1. Mild straightening of the normal cervical lordosis increase in thoracic kyphosis. Disc spaces and vertebral body heights are well-preserved. Conus terminates normally at L1. L1-L2: Normal. L2-L3: No stenosis. Very mild ligamentum flavum hypertrophy. L3-L4: Mild disc bulging without significant stenosis. There is a small amount of fluid in the facet joints and mild bilateral foraminal narrowing. L4-L5: Mild annular disc bulging with moderate ligamentum flavum and facet arthritis. Small amount of fluid in the facet joints. Very mild foraminal narrowing. L5-S1: Previously described disc protrusion is no longer present. There is no displacement or encroac hment upon the S1 nerve roots. Mild ligamentum flavum hypertrophy and facet arthritis greatest on the RIGHT. No stenosis. Very mild narrowing of the proximal RIGHT foramen. Large posterior laminectomy d efect. Paravertebral soft tissues are normal. MR/MR lumbar spine wo con* [id number] IMPRESSION: 1. Status post posterior lumbar fusion at L5-S1 with interbody spacer and lami nectomy defect. 2. No recurrent disc herniation. 3. Mild proximal RIGHT foraminal stenosis at L5-S1. 4. Mild bilateral foraminal narrowing at L3-4 and L4-5 predominantly due to fa cet disease.
== END 2021-04-12 14:56 | disposition home or self-care (01) ==
LOC: RADWPI 14:58
PROVIDERS: PCP Electrodiagnostic Medicine; Visit Provider Electrodiagnostic Medicine
DX: M54.16 Radiculopathy, lumbar region (principal); R32 Unspecified urinary incontinence; R53.1 Weakness; M43.27 Fusion of spine, lumbosacral region; M48.07 Spinal stenosis, lumbosacral region
CPT/HCPCS: 72148

== ENCOUNTER 2021-06-25 12:31 | Outpatient (CLI) | payer MEDICARE, SELFPAY ==
--- NOTE | 2021-06-25 12:51 | XR_ITS ---
WS: [id number] XR KUB [id number] REASON FOR EXAM: EPIGASTRIC ABD PAIN/GASTRIC ULCER FINDINGS: Post cholecystectomy. Unremarkable bowel gas pattern. No free air or retroperitoneal air. No urinary tract calculi identified. No mass identified. Postoperative lumbar spine. XR/XR KUB [id number] IMPRESSION: No acute abnormality.
== END 2021-06-25 12:32 | disposition home or self-care (01) ==
PROVIDERS: PCP Electrodiagnostic Medicine; Visit Provider Electrodiagnostic Medicine
DX: R10.13 Epigastric pain (principal); K25.9 Gastric ulcer, unspecified as acute or chronic, without hemorrhage or perforation
CPT/HCPCS: 74018

== ENCOUNTER 2021-07-26 11:14 | Outpatient (CLI) | payer MEDICARE, SELFPAY ==
--- NOTE | 2021-07-26 11:36 | MR_ITS ---
WS: [id number] MRI BRAIN WITH HIGH-RESOLUTION IMAGING THROUGH THE INTERNAL AUDITORY CANALS WITHOUT AND WITH CONTRAST HISTORY: CHRONIC SINUSITIS, UNSPECIFIED, ear pressure and loss of balance. COMPARISON: 08/10/2006 TECHNIQUE: Multiplanar, multisequence imaging is performed through the brain. Additional 3 mm imaging performed in multiple planes through the internal auditory canal. Postcontrast imaging with 17 ml's of MultiHance. No acute intracranial hemorrhage, midline shift, edema or mass effect. Very mild volume loss and atrophy. There are a few scattered T2 and FLAIR signal hyperintensities rel ated to microvascular ischemic disease most likely. No prior infarct. Slightly greater T2 and FLAIR s ignal abnormalities in the RIGHT parietal lobe. No signal abnormality at the cerebellopontine angle o r posterior fossa. No mass effect. Ventricles and extra-axial spaces are normal. No inferior displacement of the cerebellar tonsils. There is a ovoid low-attenuation nonenhancing mas s in the floor of the LEFT sella consistent with a microadenoma measuring 4 mm. Not seen on the prior examination. There is moderate motion artifact on the sequences through the skull base and the internal/external a uditory canals. Patient was unable to remain still. Internal and external auditory canals: Unremarkable. Cranial nerves VII and VIII complexes: Unremarkable. No enhancement or mass. Cerebellopontine angles: Negative as visualized. Paranasal sinuses: Normal. Mastoid air cells: Normal. Calvarium and scalp: Normal. Visualized [place] and dural venous sinuses demonstrate no abnormality. MR/MR iac's wo/w con* [id number] IMPRESSION: 1. Unremarkable MRI internal auditory canals. There is motion artifact during several of the sequences dedicated to the cerebellopontine angles and cranial n erves. 2. Small pituitary microadenoma measures 4 mm. 3. Mild chronic microvascular ischemic disease.
== END 2021-07-26 11:15 | disposition home or self-care (01) ==
PROVIDERS: PCP Electrodiagnostic Medicine; Visit Provider Specialist
DX: J32.9 Chronic sinusitis, unspecified (principal); I67.82 Cerebral ischemia; D36.7 Benign neoplasm of other specified sites
CPT/HCPCS: 70553

== ENCOUNTER 2021-09-10 13:46 | Outpatient (RCR) | payer MEDICARE, SELFPAY | END 2021-09-11 13:04 | disposition home or self-care (01) | LOC: SPT 13:46 | PROVIDERS: PCP Electrodiagnostic Medicine; Referring Provider Otolaryngology; Visit Provider Otolaryngology | DX: R42 Dizziness and giddiness (principal) | CPT/HCPCS: 97162 ==

== ENCOUNTER → 2021-10-02 14:44 | Outpatient (BNVA) | payer MEDICARE, SELFPAY | PROVIDERS: PCP Electrodiagnostic Medicine; Referring Provider Neurological Surgery; Visit Provider Internal Medicine | DX: E23.7 Disorder of pituitary gland, unspecified (principal); D35.2 Benign neoplasm of pituitary gland; R51.9 Headache, unspecified; R42 Dizziness and giddiness; R63.5 Abnormal weight gain; F32.9 Major depressive disorder, single episode, unspecified; Z87.891 Personal history of nicotine dependence; Z68.41 Body mass index [BMI] 40.0-44.9, adult | CPT/HCPCS: 99204 ==

== ENCOUNTER 2021-10-07 11:46 | Outpatient (CLI) | payer MEDICARE, SELFPAY ==
[2021-10-07 13:08] LABS: Cortisol Random 10.12 ug/dL (2.47-19.5)
[2021-10-07 13:10] LABS: Free T4 Free Thyroxine 1.02 ng/dL (0.82-1.77); Thyroid Stimulating Hormone 1.68 uIU/mL (0.27-4.20)
[2021-10-07 13:20] LABS: Estradiol 13.1 pg/mL; Follicle Stimulating Hormone 39.9 mIU/mL; Luteinizing Hormone 37.8 mIU/mL (0.5-41.7); Prolactin 6.85 ng/mL (4.8-23.3)
[2021-10-11 06:37] LABS: Adrenocorticotropic Hormone 15 pg/mL (6-50)
[2021-10-12 15:48] LABS: IGF1 LC/MS 100 ng/mL (50-317); Z Score (Female) -0.6 SD (-2.0 - +2.0)
== END 2021-10-07 11:47 | disposition home or self-care (01) ==
LOC: LAB 11:47
PROVIDERS: PCP Electrodiagnostic Medicine; Visit Provider Internal Medicine
DX: D35.2 Benign neoplasm of pituitary gland (principal); E23.7 Disorder of pituitary gland, unspecified; F32.9 Major depressive disorder, single episode, unspecified; R63.5 Abnormal weight gain
CPT/HCPCS: 82024; 82533; 82670; 83001; 83002; 84146; 84305; 84439; 84443

== ENCOUNTER 2022-01-22 12:23 | Emergency (ER) | payer MEDICARE, SELFPAY ==
[2022-01-22 12:35] VITALS: BP 135/97; PULSE 100; RESP 15; TEMP 36.6; O2SAT 100; BMI 39.4
--- NOTE | 2022-01-22 13:00 | ED_ITS ---
HPI - General Adult General: Chief complaint: Nausea/Vomiting/Diarrhea Stated complaint: N/V/D Time Seen by Provider: 01/22/22 12:31 History of Present Illness: Patient is a 61-year-old female history of prior cholecystectomy, hysterectomy, tubal ligation and recent UTI treated with c iprofloxacin presenting to the emergency room for evaluation of nausea vomiting and diarrhea with bloody stool for the last 3 days. Patient tells me that on Thursday she went out to eat dinner with her . Shortly after, patient reports upset stomach. Patient has been having ongoing diarrhea for the last 5 days. Patient decreased reports decreased p.o. intake. Since yesterday night, patient has noticed significant blood in the stool. Patient denies any tenesmus. Patient denies any vaginal bleeding or new vaginal discharge. Patient has no complaints. Patient complains of mild lower abdominal pain. No prior history renal colic. Denies any cough, runny nose, sore throat, chest pain or shortness of breath. Patient has had 2 episodes of emesis once on Thursday and once yesterday. Of note, patient recently completed a course of ciprofloxacin on Thursday01/13/2022. Onset: 5 days ago Duration:5 days Location:home Severity:moderate Associated symptoms: Reports nausea and vomiting; Deny chest pain, dyspnea, rash or palpitations Review of Systems Const: Denies: fever(s) or chills Eyes: Denies: change in vision ENMT: Denies: mouth pain Card: Denies: chest pain or palpitations Resp: Denies: dyspnea or non-productive cough GI: Reports: abdominal pain, nausea, vomiting and diarrhea (+bloody stool and loose liquid stool) : Denies: dysuria Musc: Denies: extremity pain Skin/Breast: Denies: rash or new lesions Neuro: Denies: weakness in extremities Psych: Reports: other (Normal mood) Jamar/Lymph: Denies: easy bruising PFSH ED PFSH: Medical History Asthma Colitis -As noted above -stool studies otherwise negative including C.difficile Depression History of menorrhagia Hypertension -VSS; continue to monitor -ACEi on hold due to continued renal impairment Iron deficiency Metabolic acidosis, increased anion gap -off sodium bicarbonate; improved -continue to monitor chemistry Oliguria Renal failure -appears to have at least some degree of CKD, no baseline labs to compare -significant acute renal impairment, oliguria likely multifactorial due to profuse diarrhea secondary to Salmonella enteritis, subsequent dehydration, CULLEN inhibitor use, poor oral intake -Continue to closely monitor renal function and urine output. Renal function is improving -Gutiérrez catheter discontinued and able to void independently without difficulty -Avoid nephrotoxins, renally dose meds -Nephrology consult appreciated -Continue to hold PPI -Renal ultrasound unremarkable -Hepatitis panel negative, AM cortisol wnl; serum immunofixation normal, negative TARYN, SS-A and SS-B antibodies negative, anti-dsDNA indeterminate -Continue IVF Salmonella enteritis -stool studies positive for Salmonella enteritis with evidence of diffuse colitis on imaging -on ceftriaxone (day 5/7); would continue this as oral intake has been mediocre; will d/c on ciprofloxacin for dual coverage, to complete treatment course -blood cx: negative UTI (urinary tract infection) -UA indicative of infection -urine cx: no growth -already on Ceftriaxone Surgical History H/O hernia repair H/O: hysterectomy History of back surgery History of cholecystectomy S/P cholecystectomy Tubal ligation status Family History Other Adopted Physical Exam Const: COMMON NORMALS: alert HENMT: COMMON NORMALS: atraumatic HEAD & SCALP: atraumatic MOUTH: moist mucous membranes not abnormal Eye: COMMON NORMALS: EOMs intact bilaterally and conjunctivae normal CONJUNCTIVA: Yes conjunctivae normal Neck/C-Spine: COMMON NORMALS: full ROM and supple Resp: COMMON NORMALS: normal respiratory effort and clear to auscultation bilaterally AUSCULTATION: clear to auscultation bilaterally Cardio: COMMON NORMALS: regular rate RATE: regular rate GI: COMMON NORMALS: Soft to palpation and non-tender PALPATION: Yes Soft to palpation OTHER: No focal TTP. NO guarding rebound, guarding, rigidity. No CVA tenderness to percussion. Neg Cleary/Neg McBurney's point tenderness, no suprabupic tenderness to palpation. Extremity: COMMON NORMALS: full ROM Neuro: SENSORIUM/ORIENTATION: Yes alert MOTOR EXAM: No Abnormal motor strength present and Other motor observations present (no focal motor deficits) Psych: COMMON NORMALS: speech normal SPEECH: Yes normal speech MOOD & AF FECT: Yes euthymic mood Course Vital Signs: Vital signs: Vital Signs Temperature 97.8 F 01/22/22 12:35 Pulse Rate 91 01/22/22 15:30 Respiratory Rate 15 01/22/22 12:35 Blood Pressure 145/97 01/22/22 15:55 Pulse Oximetry 96 01/22/22 15:30 Oxygen Delivery Me thod 01/22/22 12:35 MDM - General Adult Medical Decision Making 61-year-old female with a history of prior tubal ligation, hysterectomy, recent UTI treated with abx presenting to the emergency room for evaluation nausea vomiting, loose stool with bloody stool and mild lower abdominal pain. On exam, patient is hemodynamically stable. Abdominal exam is unremarkable. Patient has no focal tenderness palpation in the lower quadrants. Patient has no guarding or rebound tenderness. White count 9.6 today. Rest of lab unremarkable. Patient stool sample has been sent today. Patient received IVF report feeling significantly improved. Patient is able to hold down food at this time. No suspicion for other acute intra-abdominal pathology including SBO, biliary pathology, appendicitis, diverticulitis, or other emergent condition requiring surgery. Rx Maalox/pepcid PRN dyspepsia, and zofran PRN nausea/vomiting Disposition: Discharge. Patient counseled regarding diagnostic impression, treatment plan. Patient given ED strict return precautions to return for continuation, worsening, or development of new symptoms. Instructed to f/u w/ PCP regarding symptoms today. Patient verbalized understanding. Lab Data : 01/22/22 12:50 01/22/22 13:57 Laboratory Results WBC 9.6 10^3/uL (4.0-10.0) 01/22/22 12:50 RBC 5.15 10^6/uL (4.1-5.3) 01/22/22 12:50 Hgb 14.5 g/dL (11.5-15.3) 01/22/22 12:50 Hct 45.4 % (37.0-47.0) 01/22/22 12:50 MCV 88.2 fl (81-99) 01/22/22 12:50 MCH 28.2 pg (28.0-34.0) 01/22/22 12:50 MCHC 31.9 g/dL (30.0-36.0) 01/22/22 12:50 RDW 12.6 % (12.1-15.1) 01/22/22 12:50 Plt Count 239 10^3/cmm (130-400) 01/22/22 12:50 MPV 10.4 fL (7.4-10.4) 01/22/22 12:50 Neut % (Auto) 60.7 % 01/22/22 12:50 Lymph % (Auto) 28.5 % 01/22/22 12:50 Tyrrell % (Auto) 6.5 % 01/22/22 12:50 Eos % (Auto) 3.4 % 01/22/22 12:50 Baso % (Auto) 0.7 % 01/22/22 12:50 Neut # (Auto) 5.82 10^3/uL (1.8-7.7) 01/22/22 12:50 Lymph # (Auto) 2.7 10^3/uL (0.8-4.8) 01/22/22 12:50 Tyrrell # (Auto) 0.6 10^3/uL (0.2-0.9) 01/22/22 12:50 Eos # (Auto) 0.3 10^3/uL (0.0-0.8) 01/22/22 12:50 Baso # (Auto) 0.1 10^3/uL (0.0-0.1) 01/22/22 12:50 Nucleated RBC % (auto) 0 % 01/22/22 12:50 Nucleated RBCs # 0.0 /100WBC 01/22/22 12:50 Sodium 140 mmol/L (136-145) 01/22/22 13:57 Potassium 3.8 mmol/L (3.5-5.1) 01/22/22 13:57 Chloride 102 mmol/L (98-107) 01/22/22 13:57 Carbon Dioxide 26 mmol/L (22-29) 01/22/22 13:57 Anion Gap 15.8 (5-19) 01/22/22 13:57 BUN 9 mg/dL (6-20) 01/22/22 13:57 Creatinine 1.0 mg/dL (0.5-0.9) H 01/22/22 13:57 GFR Calculation 56.7 mL/min (90-130) L 01/22/22 13:57 Glucose 114 mg/dL (65-115) 01/22/22 13:57 Calculated Osmolality 290 mOsm/kg (285-295) 01/22/22 13:57 Calcium 9.5 mg/dL (8.5-10.5) 01/22/22 13:57 Total Bilirubin 0.4 mg/dL (0.15-1.2) 01/22/22 13:57 AST 16 U/L (0-32) 01/22/22 13:57 ALT 11 U/L (0-33) 01/22/22 13:57 Alkaline Phosphatase 145 U/L (35-105) H 01/22/22 13:57 Total Protein 7.3 g/dL (6.6-8.7) 01/22/22 13:57 Albumin 4.3 g/dL (3.5-5.2) 01/22/22 13:57 Globulin 3.0 g/dL (1.3-4.6) 01/22/22 13:57 Lipase 74 U/L (13-60) H 01/22/22 13:57 Urine Color Yellow (Yellow) 01/22/22 16:03 Urine Appearance Clear (CLEAR) 01/22/22 16:03 Urine pH 6 (5-7) 01/22/22 16:03 Ur Specific [place] 1.010 (1.005-1.030) 01/22/22 16:03 Urine Protein Neg (Negative) 01/22/22 16:03 Urine Glucose (UA) Norm (Normal) 01/22/22 16:03 Urine Ketones Negative (Negative) 01/22/22 16:03 Urine Blood Neg (Negative) 01/22/22 16:03 Urine Nitrate Negative (Negative) 01/22/22 16:03 Urine Bilirubin Neg (Negative) 01/22/22 16:03 Urine Urobilinogen Norm mg/dL (Negative) 01/22/22 16:03 Ur Leukocyte Esterase Negative (Negative) 01/22/22 16:03 Coronavirus 229E (PCR) Not detected (NOT DETECT) 01/22/22 13:21 SARS-CoV-2 (PCR) Not detected (NOT DETECT) 01/22/22 13:21 Discharge Plan Discharge Patient Disposition: Home Clinical Impression: Nausea and vomiting, Diarrhea Condition: Stable Prescriptions: New Pepcid 20 mg tablet 20 mg PO BID PRN (Reason: abdominal pain) 10 Days Qty: 20 0RF ondansetron 4 mg tablet,disintegrating 4 mg PO TID PRN (Reason: nausea and vomiting) 4 Days Qty: 12 0RF Maalox Advanced 1,000-60 mg tablet,chewable 1 tab PO TID PRN (Reason: abdominal pain) 7 Days Qty: 21 0RF No Action desvenlafaxine succinate 100 mg tablet extended release 24 hr 100 mg PO BEDTIME levocetirizine 5 mg tablet 5 mg PO BEDTIME clonazepam 0.5 mg tablet 0.5 mg PO DAILY PRN (Reason: Anxiety) meclizine 25 mg tablet 25 mg PO QID PRN (Reason: Dizziness) oxybutynin chloride 5 mg tablet extended release 24hr 5 mg PO DAILY tizanidine 2 mg capsule 2 mg PO Q8H PRN (Reason: Muscle Spasm) montelukast 10 mg tablet 10 mg PO DAILY fluticasone propionate 50 mcg/actuation spray,suspension 2 spray intranasal DAILY PRN (Reason: Allergy Symptoms) Rx Instructions: administer into each nostril Ozempic 0.25 mg or 0.5 mg(2 mg/1.5 mL) pen injector 0.5 mg SUBCUT Q7D estradiol [Estrace] 0.01 % (0.1 mg/gram) cream 1 appful vaginal DAILY Qty: 42.5 2RF Rx Instructions: for 14 days, then twice weekly after that hydrocodone-acetaminophen 10-325 mg tablet 1 tab PO QID PRN (Reason: Pain) zolpidem 5 mg tablet 5 mg PO BEDTIME PRN (Reason: Sleep) multivitamin Tablet 1 tab PO DAILY celecoxib 200 mg capsule 200 mg PO BEDTIME omeprazole 40 mg capsule,delayed release(DR/EC) 40 mg PO BEDTIME Calcium Gummies 2 tab PO BEDTIME Excedrin Migraine 250-250-65 mg Tablet 2 tab PO Q6H PRN (Reason: Migraine Headache) Discharge Orders: Discharge ED (Routine); Ordered 01/22/22 Ordered By: Darrion Hernandez Referrals: Grzegorz Garcia, [Primary Care Provider] - Discharge Diet: Advance as tolerated Discharge Activity: Increase activity as tolerated Patient Instructions: Acute Diarrhea (ED) Activity Restrictions/Additional Instructions: Please come back if you have any worsening abdominal pain, fever or chills, nausea or vomiting, diarrhea, blood in the stool, inability hold down liquid or solids, or any new concerning complaints. Coding Level of Care Code ED Web Portal Developer for Chg Fwd Exam Comprehensive
--- NOTE | 2022-01-22 13:00 | PC.NURSE ---
Pt reports went out for [place] food on Thursday and began having nausea, vomiting, and diarrhea since. Reports now she notices straight bright red blood with bowel movements, denies clots or dark stools. Pt resting in bed, respirations even and unlabored, lung sounds clear bilat, bowel sounds present, abdomen soft to palpation.
[2022-01-22 13:02] LABS: Basophils # 0.1 10^3/uL (0.0-0.1); Basophils % 0.7 %; Eosinophils # 0.3 10^3/uL (0.0-0.8); Eosinophils % 3.4 %; Hematocrit 45.4 % (37.0-47.0); Hemoglobin 14.5 g/dL (11.5-15.3); Lymphocytes # 2.7 10^3/uL (0.8-4.8); Lymphocytes % 28.5 %; Mean Corpuscular HGB Conc 31.9 g/dL (30.0-36.0); Mean Corpuscular Hemoglobin 28.2 pg (28.0-34.0); Mean Corpuscular Volume 88.2 fl (81-99); Mean Platelet Volume 10.4 fL (7.4-10.4); Monocytes # 0.6 10^3/uL (0.2-0.9); Monocytes % 6.5 %; Neutrophils # 5.82 10^3/uL (1.8-7.7); Neutrophils % 60.7 %; Nucleated Red Blood Cells % 0 %; Platelet Count 239 10^3/cmm (130-400); Red Blood Count 5.15 10^6/uL (4.1-5.3); Red Cell Distribution Width 12.6 % (12.1-15.1); White Blood Count 9.6 10^3/uL (4.0-10.0)
[2022-01-22] MEDS: sodium chloride 0.9% 1,000 ML 999 ML IV ×2 (13:51→15:55)
[2022-01-22] MEDS: ondansetron 2 mg/ML SDV 2 mL 4 MG IVP (13:55)
[2022-01-22] MEDS: famotidine 20 mg/2 mL INJ IVP (13:59)
[2022-01-22] MEDS: lidocaine 2% viscous 15 ML, aluminum-mag hydrox-simethicon 30 ML, sucralfate oral liq 1 GM PO (14:01)
[2022-01-22 14:13] VITALS: BP 142/109
[2022-01-22 14:29] LABS: Alanine Aminotransferase 11 U/L (0-33); Albumin Level 4.3 g/dL (3.5-5.2); Alkaline Phosphatase 145 U/L (35-105); Anion Gap 15.8 (5-19); Aspartate Amino Transferase 16 U/L (0-32); Blood Urea Nitrogen 9 mg/dL (6-20); Calcium 9.5 mg/dL (8.5-10.5); Carbon Dioxide 26 mmol/L (22-29); Chloride 102 mmol/L (98-107); Glomerular Filtration Rate 56.7 mL/min (90-130); Glucose 114 mg/dL (65-115); Lipase 74 U/L (13-60); Osmolality Calculated 290 mOsm/kg (285-295); Potassium 3.8 mmol/L (3.5-5.1); Sodium 140 mmol/L (136-145); Total Bilirubin 0.4 mg/dL (0.15-1.2); Total Protein 7.3 g/dL (6.6-8.7)
[2022-01-22 15:30] VITALS: BP 151/92; PULSE 91; O2SAT 96
[2022-01-22 15:35] LABS: Adenovirus Not Detected (NOT DETECT); Chlamydia Pneumoniae Not Detected (NOT DETECT); Coronavirus 229E,HKU1,NL63,OC4 Not Detected (NOT DETECT); Human Metapneumovirus Not Detected (NOT DETECT); Human Rhinovirus/Enterovirus Not Detected (NOT DETECT); Influenza A Not Detected (NOT DETECT); Influenza A H1 Not Detected (NOT DETECT); Influenza A H1-2009 Not Detected (NOT DETECT); Influenza A H3 Not Detected (NOT DETECT); Influenza B Not Detected (NOT DETECT); Mycoplasma Pneumoniae Not Detected (NOT DETECT); Parainfluenza Virus Type 1 Not Detected (NOT DETECT); Parainfluenza Virus Type 2 Not Detected (NOT DETECT); Parainfluenza Virus Type 3 Not Detected (NOT DETECT); Parainfluenza Virus Type 4 Not Detected (NOT DETECT); Respiratory Syncytial Virus A Not Detected (NOT DETECT); Respiratory Syncytial Virus B Not Detected (NOT DETECT); SARS-COV-2 Not Detected (NOT DETECT)
[2022-01-22 15:55] VITALS: BP 145/97
[2022-01-22 16:51] LABS: Add Urine Microscopic? NO; Charge for UA Resulting for Rev
[2022-01-22 17:01] LABS: Urine Appearance Clear (CLEAR); Urine Color Yellow (Yellow); pH Urine 6 (5-7)
[2022-01-22 17:02] LABS: Bilirubin Urine Neg (Negative); Blood Urine Neg (Negative); Glucose Urine UA Norm (Normal); Ketones Urine Negative (Negative); Leukocyte Esterase Urine Negative (Negative); Nitrate Urine Negative (Negative); Protein Urine Neg (Negative); Urobilinogen Urine Norm (Negative)
== END 2022-01-22 17:55 | disposition home or self-care (01) ==
PROVIDERS: Emergency Provider Emergency Medicine; PCP Electrodiagnostic Medicine
DX: R11.2 Nausea with vomiting, unspecified (principal); R19.7 Diarrhea, unspecified; I10 Essential (primary) hypertension; Z20.822 Contact with and (suspected) exposure to COVID-19
CPT/HCPCS: 36415; 80053; 81003; 83690; 85025; 87506; 87635; 96361; 96374; 96375; 99284; J2405; J3490; J7030

== ENCOUNTER 2022-03-04 14:20 | Observation (INO) | payer MEDICARE, SELFPAY ==
[2022-03-04] VITALS (21 sets, daily range): BP systolic 118–159; BP diastolic 74–103; PULSE 74–97; RESP 14–18; TEMP 36.1–36.9; O2SAT 86–99; BMI 38.7
[2022-03-04] MEDS: sodium chloride 0.9% 1,000 ML 30 ML IV (12:02)
[2022-03-04] MEDS: acetaminophen 1,000 MG/100 ML PIGGYBACK 400 MG IV (12:07)
[2022-03-04] MEDS: CELEcoxib 200 mg Capsule 400 MG PO (12:08)
[2022-03-04] MEDS: scopolamine 1.5 Patch 1 PATCH TRANSDERMA (12:08)
[2022-03-04] MEDS: gabapentin 300 mg Capsule PO (12:08)
[2022-03-04] MEDS: phenazopyridine 100 mg Tablet 200 MG PO ×3 (12:09→21:45)
--- NOTE | 2022-03-04 12:17 | ANES.PREANE2 ---
Pre-Anesthetic Assessment Height/Weight: Height 1.68 m Weight 108.862 kg Temp Pulse Resp BP Pulse Ox O2 Del Method 98.4 F 97 16 146/103 96 03/04/22 11:51 03/04/22 11:51 03/04/22 11:51 03/04/22 11:51 03/04/22 11:51 03/04/22 11:51 Preop Diagnosis: Stress urinary incontinence Operation Date: 03/04/22 13:00 Proposed Procedures p Mid urethral sling 57812,N39.3(Not Applicable) - Nadine Leach MD Familial anesthetic complications: None Was Beta Yefri taken within 24 hours: N/A Was Clonidine taken within 24 hours: N/A Last intake: Intake Last Liquid Date 03/03/22 Last Liquid Time 22:00 Last Solid Date 03/03/22 Last Solid Time 22:00 Social No alcohol and No tobacco Exam alert, oriented x 3, clear to auscultation bilaterally and regular rate & rhythm Airway Mallampati: Class II Dentition: false Pulmonary Asthma CV/HEM Hypertension GI Gastroesophageal Reflux Disease Frequent Anesthetic Plan ASA status: 3 Anesthesia: General Risk of > 500 ml blood loss (7ml/kg in children): No Medications/Allergies Home Medications Medication Instructions Recorded Confirmed Last Taken Type hydrocodone 10 mg-acetaminophen 1 tab PO QID PRN Pain 10/29/19 03/04/22 03/03/22 History 325 mg tablet zolpidem 5 mg tablet (Ambien) 5 mg PO BEDTIME PRN Sleep 10/29/19 03/04/22 03/03/22 History clonazepam 0.5 mg tablet 0.5 mg PO DAILY PRN Anxiety 10/02/21 03/04/22 03/04/22 History desvenlafaxine succinate 100 mg 100 mg PO BEDTIME 10/02/21 03/04/22 03/03/22 History tablet,extended release 24 hr (Pristiq) fluticasone propionate 50 2 spray intranasal DAILY PRN 10/02/21 03/04/22 Unknown History mcg/actuation nasal Allergy Symptoms spray,suspension levocetirizine 5 mg tablet 5 mg PO BEDTIME 10/02/21 03/04/22 03/03/22 History meclizine 25 mg tablet 25 mg PO QID PRN Dizziness 10/02/21 03/04/22 Unknown History montelukast 10 mg tablet 10 mg PO DAILY 10/02/21 03/04/22 Unknown History (Singulair) oxybutynin chloride 5 mg 5 mg PO DAILY 10/02/21 03/04/22 02/28/22 History tablet,extended release 24 hr tizanidine 2 mg capsule 2 mg PO Q8H PRN Muscle Spasm 10/02/21 03/04/22 Unknown History estradiol 0.01% (0.1 mg/gram) 1 appful vaginal DAILY #42.5 grams 01/01/22 03/04/22 03/02/22 Rx vaginal cream (Estrace) Calcium Gummies 2 tab PO BEDTIME 01/22/22 03/04/22 02/15/22 History yvpidnx-ajsqpnnajojgh-yvalcpuh 250 2 tab PO Q6H PRN Migraine Headache 01/22/22 03/04/22 02/27/22 History mg-250 mg-65 mg tablet (Excedrin Migraine) celecoxib 200 mg capsule 200 mg PO BEDTIME 01/22/22 03/04/22 03/03/22 History multivitamin 1 tab PO DAILY 01/22/22 03/04/22 02/15/22 History omeprazole 40 mg capsule,delayed 40 mg PO BEDTIME 01/22/22 03/04/22 03/03/22 History release Allergies Allergy/AdvReac Type Severity Reaction Status Date / Time amoxicillin Allergy Severe ADR-Itching Verified 02/27/22 10:50 aripiprazole [From Abilify] Allergy Severe feels like Verified 02/27/22 10:50 shes going crazy codeine Allergy ADR-Irritab Verified 02/27/22 10:50 le semaglutide [From Ozempic] Allergy ADR-Diarrhe Verified 03/03/22 14:55 a sulfamethoxazole Allergy ALGY-Hives Verified 02/27/22 10:50 [From Bactrim] tetracycline Allergy Unknown Verified 02/27/22 10:50 trimethoprim [From Bactrim] Allergy ALGY-Hives Verified 02/27/22 10:50 Current Medications Generic Name Dose Route Start Last Admin Trade Name Freq PRN Reason Stop Dose Admin Sodium Chloride 1,000 mls @ 30 mls/hr 03/04/22 11:45 03/04/22 12:02 Sodium Chloride 0.9% IV 03/05/22 11:44 30 mls/hr .Q24H ELIESER Administration PFSH Anesthesia Medical History Asthma Colitis -As noted above -stool studies otherwise negative including C.difficile Depression History of menorrhagia Hypertension -VSS; continue to monitor -ACEi on hold due to continued renal impairment Iron deficiency Metabolic acidosis, increased anion gap -off sodium bicarbonate; improved -continue to monitor chemistry Oliguria Renal failure -appears to have at least some degree of CKD, no baseline labs to compare -significant acute renal impairment, oliguria likely multifactorial due to profuse diarrhea secondary to Salmonella enteritis, subsequent dehydration, CULLEN inhibitor use, poor oral intake -Continue to closely monitor renal function and urine output. Renal function is improving -Gutiérrez catheter discontinued and able to void independently without difficulty -Avoid nephrotoxins, renally dose meds -Nephrology consult appreciated -Continue to hold PPI -Renal ultrasound unremarkable -Hepatitis panel negative, AM cortisol wnl; serum immunofixation normal, negative TARYN, SS-A and SS-B antibodies negative, anti-dsDNA indeterminate -Continue IVF Salmonella enteritis -stool studies positive for Salmonella enteritis with evidence of diffuse colitis on imaging -on ceftriaxone (day 5/7); would continue this as oral intake has been mediocre; will d/c on ciprofloxacin for dual coverage, to complete treatment course -blood cx: negative UTI (urinary tract infection) -UA indicative of infection -urine cx: no growth -already on Ceftriaxone Surgical History H/O hernia repair H/O: hysterectomy History of back surgery History of cholecystectomy S/P cholecystectomy Tubal ligation status Family History Other Adopted Social History Smoking and tobacco status: never smoked Data Anesthesia : 03/04/22 12:01 03/04/22 12:01 Cardiac Studies: No Data to Display
[2022-03-04 12:40] LABS: Blood Urea Nitrogen 13 mg/dL (8-23); Calcium 9.4 mg/dL (8.5-10.5); Carbon Dioxide 27 mmol/L (22-29); Chloride 101 mmol/L (98-107); Glomerular Filtration Rate 73.2 mL/min (90-130); Glucose 89 mg/dL (65-115); Osmolality Calculated 286 mOsm/kg (285-295); Sodium 138 mmol/L (136-145)
[2022-03-04 12:43] LABS: Anion Gap 13.9 (5-19); Potassium 3.9 mmol/L (3.5-5.1)
[2022-03-04 13:08] LABS: Basophils # 0.1 10^3/uL (0.0-0.1); Basophils % 1.2 %; Eosinophils # 0.2 10^3/uL (0.0-0.8); Eosinophils % 2.7 %; Hematocrit 44.2 % (37.0-47.0); Hemoglobin 13.8 g/dL (11.5-15.3); Lymphocytes # 2.5 10^3/uL (0.8-4.8); Lymphocytes % 29.3 %; Mean Corpuscular HGB Conc 31.2 g/dL (30.0-36.0); Mean Corpuscular Volume 89.7 fl (81-99); Mean Platelet Volume 10.5 fL (7.4-10.4); Monocytes # 0.5 10^3/uL (0.2-0.9); Neutrophils # 5.16 10^3/uL (1.8-7.7); Neutrophils % 60.4 %; Nucleated Red Blood Cells % 0 %; Platelet Count 265 10^3/cmm (130-400); Red Blood Count 4.93 10^6/uL (4.1-5.3); Red Cell Distribution Width 13.2 % (12.1-15.1); White Blood Count 8.5 10^3/uL (4.0-10.0)
--- NOTE | 2022-03-04 13:28 | W.PM.OPSUD ---
Surgery/Procedure H&P Update DATE OF PROCEDURE: March 04, 2022 DATE H&P PERFORMED: 02/27/22 H&P UPDATE INFORMATION: I have reviewed H&P completed within last 30 days, I have examined patient prior to procedure and No changes to prior documentation PREOP DIAGNOSIS: Stress urinary incontinence PLANNED PROCEDURE: Operation Date: 03/04/22 13:00 Proposed Procedures p Mid urethral sling 05815,N39.3(Not Applicable) - Nadine Leach MD Related Problem List Diagnoses (1) Stress incontinence:
--- NOTE | 2022-03-04 14:47 | PM.OP ---
Operative Report Date of procedure: March 04, 2022 Pre-op diagnosis: Preop Diagnosis Stress urinary incontinence Post-op diagnosis: same Procedure done: mid urethral sling with cystoscopy Implants: mid urethral sling Surgeon: Nadine Leach Anesthesia: General Estimated blood loss (mL): 50 IV fluids (mL): 1,000 Urine output (mL): 50 Complications: none Findings: severe stress urinary incontinence prior to surgery Condition: stable Disposition: PACU Procedure: The patient was taken to the operating room where general anesthesia was administered and found to be adequate. She was prepped and draped in the normal sterile fashion in the dorsal lithotomy position in [facility]. A caldwell catheter was placed. A weighted speculum was placed into the vagina and an Allis clamp was placed approximately 2 cm below the urethra and another placed approximately 3 cm distal from that. An incision was made between the 2. The tissue was sharply and bluntly dissected along the pubic ramus bilaterally. The sling was placed on the left first by going through the incision and attaching the sling to the obturator foramen membrane . The right side was performed in a similar fashion, placing the applicator through the incision and attaching to the obturator foramen membrane. The Caldwell catheter was removed and the cystoscope advanced into the bladder. Indigo carmine was given and bilateral spill of blue fluid was noted from both ureteral orifices. There was no mesh noted to be in the bladder. 300 ml of sterile saline was placed into the bladder. The sling was tightened until there was no leakage with valsalva. The tag of suture was trimmed. The incision was repaired with 2-0 Vicryl in a running locked fashion. Vaginal packing was placed. The patient tolerated the procedure well. Sponge lap and needle counts were correct x3. She was taken to the recovery room in stable condition.
[2022-03-04] MEDS: fentaNYL 50 mcg/mL INJ 2mL IVP ×2 (15:06→15:25)
--- NOTE | 2022-03-04 15:17 | SUR.PHASEI ---
1450 Bilat SCDs on and placed on a pump.
[2022-03-04] MEDS: lactated ringers 1,000 ML 125 ML IV (16:00)
--- NOTE | 2022-03-04 16:30 | ANE.PACU2 ---
Inpatient post-anesthesia follow up: Airway intact: Yes Vital signs: Temperature 97.9 F Pulse Rate 79 Respiratory Rate 16 Blood Pressure 118/76 Pulse Oximetry 95 Oxygen Delivery Me thod Room Air Oxygen Flow Rate 6 Fraction of Inspir ed Oxygen Hydration adequate: Yes Nausea and vomiting: No Pain level: 1 Mental status: Baseline
[2022-03-04] MEDS: HYDROmorphone 1 mg/mL INJ 1 mL 1.5 MG IVP (16:33)
[2022-03-04] MEDS: ketorolac 30 mg/mL INJ IVP ×2 (16:33→21:42)
[2022-03-04] MEDS: ceFAZolin 3,000 MG in sodium chloride 0.9% (100 ml) 100 ML 200 MG IV ×2 (17:39→23:33)
[2022-03-04] MEDS: docusate sodium 100 mg Capsule PO (17:57)
[2022-03-04] MEDS: desvenlafaxine 50 mg Tablet 100 MG PO (21:45)
[2022-03-04] MEDS: pantoprazole DR 40 mg Tablet PO (21:45)
[2022-03-04] MEDS: acetaminophen 325 mg Tablet 650 MG PO (23:09)
[2022-03-05] MEDS: ketorolac 30 mg/mL INJ IVP (02:36)
[2022-03-05] MEDS: lactated ringers 1,000 ML 125 ML IV (02:41)
[2022-03-05 05:26] VITALS: BP 127/85; PULSE 69; TEMP 36.6; O2SAT 98
[2022-03-05 05:47] LABS: Hematocrit 38.7 % (37.0-47.0); Hemoglobin 12.2 g/dL (11.5-15.3); Mean Corpuscular HGB Conc 31.5 g/dL (30.0-36.0); Mean Corpuscular Hemoglobin 28.5 pg (28.0-34.0); Mean Corpuscular Volume 90.4 fl (81-99); Mean Platelet Volume 10.1 fL (7.4-10.4); Platelet Count 227 10^3/cmm (130-400); Red Blood Count 4.28 10^6/uL (4.1-5.3); Red Cell Distribution Width 13.2 % (12.1-15.1); White Blood Count 10.1 10^3/uL (4.0-10.0)
[2022-03-05] MEDS: ceFAZolin 3,000 MG in sodium chloride 0.9% (100 ml) 100 ML 200 MG IV (08:07)
[2022-03-05] MEDS: ibuprofen 800 mg tablet PO (08:41)
[2022-03-05] MEDS: phenazopyridine 100 mg Tablet 200 MG PO (08:41)
[2022-03-05] MEDS: montelukast sodium 10 mg Tablet PO (08:41)
[2022-03-05] MEDS: docusate sodium 100 mg Capsule PO (08:41)
[2022-03-05 08:45] VITALS: BP 146/82; PULSE 75; RESP 16; TEMP 36.6; O2SAT 95
--- NOTE | 2022-03-05 10:12 | PM.DCS ---
Discharge Providers Date of Admission: 03/04/22 14:20 Date of Discharge: March 05, 2022 Attending Provider at Admission: Nadine Leach MD Attending Provider at Discharge: Nadine Leach MD Primary Care Provider: Grzegorz Garcia DO Diagnoses at Discharge Discharge Diagnosis (1) Stress incontinence: Status: Acute Hospital Course Hospital Course The patient was admitted for surgery. She did well postoperatively and is ready for discharge on day #1 Physical Exam Narrative: The patient is doing well today. She has been up and ambulating. She had post void residual of 90 ml. Const: COMMON NORMALS: no acute distress, patient oriented x3, no limitations, healthy appearing, alert and well nourished GENERAL APPEARANCE: cooperative, comfortable, well kempt and well developed ORIENTATION/CONSCIOUSNESS: Yes awake, Yes oriented to person, Yes oriented to place and Yes oriented to time Resp: COMMON NORMALS: normal respiratory effort EFFORT & INSPECTION: Yes able to speak in complete sentences GI: COMMON NORMALS: Soft to palpation and non-tender PALPATION: Yes Soft to palpation Extremity: COMMON NORMALS: no calf tenderness Neuro: COMMON NORMALS: patient oriented x3 SENSORIUM/ORIENTATION: Yes alert, Yes oriented to person, Yes oriented to place and Yes oriented to time Psych: APPEARANCE: Yes well kempt Urinary Catheter Management: Gutiérrez: Cath Placed During This Visit: yes, but has since been removed by the nurse Reason for Continuing Indwelling Catheter: Decision to DC Catheter Urinary Catheter Date of Insertion: 03/04/22 Urinary Catheter Time of Insertion: 14:00 Date Urinary Catheter Removed: 03/05/22 Time Urinary Catheter Discontinued: 05:26 Discharge Data Studies Completed and Pending Laboratory Results WBC 10.1 10^3/uL (4.0-10.0) H 03/05/22 05:36 RBC 4.28 10^6/uL (4.1-5.3) 03/05/22 05:36 Hgb 12.2 g/dL (11.5-15.3) 03/05/22 05:36 Hct 38.7 % (37.0-47.0) 03/05/22 05:36 MCV 90.4 fl (81-99) 03/05/22 05:36 MCH 28.5 pg (28.0-34.0) 03/05/22 05:36 MCHC 31.5 g/dL (30.0-36.0) 03/05/22 05:36 RDW 13.2 % (12.1-15.1) 03/05/22 05:36 Plt Count 227 10^3/cmm (130-400) 03/05/22 05:36 MPV 10.1 fL (7.4-10.4) 03/05/22 05:36 Neut % (Auto) 60.4 % 03/04/22 12:01 Lymph % (Auto) 29.3 % 03/04/22 12:01 [place] % (Auto) 6.0 % 03/04/22 12:01 Eos % (Auto) 2.7 % 03/04/22 12:01 Baso % (Auto) 1.2 % 03/04/22 12:01 Neut # (Auto) 5.16 10^3/uL (1.8-7.7) 03/04/22 12:01 Lymph # (Auto) 2.5 10^3/uL (0.8-4.8) 03/04/22 12:01 [place] # (Auto) 0.5 10^3/uL (0.2-0.9) 03/04/22 12:01 Eos # (Auto) 0.2 10^3/uL (0.0-0.8) 03/04/22 12:01 Baso # (Auto) 0.1 10^3/uL (0.0-0.1) 03/04/22 12:01 Nucleated RBC % (auto) 0 % 03/04/22 12:01 Nucleated RBCs # 0.0 /100WBC 03/04/22 12:01 Sodium 138 mmol/L (136-145) 03/04/22 12:01 Potassium 3.9 mmol/L (3.5-5.1) 03/04/22 12:01 Chloride 101 mmol/L (98-107) 03/04/22 12:01 Carbon Dioxide 27 mmol/L (22-29) 03/04/22 12:01 Anion Gap 13.9 (5-19) 03/04/22 12:01 BUN 13 mg/dL (8-23) 03/04/22 12:01 Creatinine 0.8 mg/dL (0.5-0.9) 03/04/22 12:01 GFR Calculation 73.2 mL/min (90-130) L 03/04/22 12:01 Glucose 89 mg/dL (65-115) 03/04/22 12:01 Calculated Osmolality 286 mOsm/kg (285-295) 03/04/22 12:01 Calcium 9.4 mg/dL (8.5-10.5) 03/04/22 12:01 Vitals Last Vital Signs Temp 97.9 F 03/05/22 05:26 Pulse 69 03/05/22 05:26 Resp 16 03/04/22 16:33 BP 127/85 03/05/22 05:26 Pulse Ox 98 03/05/22 05:26 O2 Del Method 03/05/22 05:26 O2 Flow Rate 6 03/04/22 14:55 Discharge Plan Discharge Patient Disposition: Home Condition: Stable Prescriptions: New hydrocodone-acetaminophen 10-325 mg Tablet 1 tab PO QID PRN (Reason: Pain) Qty: 30 0RF docusate sodium 100 mg Capsule 100 mg PO BID Qty: 60 0RF Continued desvenlafaxine succinate [Pristiq] 100 mg tablet extended release 24 hr 100 mg PO BEDTIME levocetirizine 5 mg tablet 5 mg PO BEDTIME clonazepam 0.5 mg tablet 0.5 mg PO DAILY PRN (Reason: Anxiety) meclizine 25 mg tablet 25 mg PO QID PRN (Reason: Dizziness) oxybutynin chloride 5 mg tablet extended release 24hr 5 mg PO DAILY tizanidine 2 mg capsule 2 mg PO Q8H PRN (Reason: Muscle Spasm) montelukast [Singulair] 10 mg tablet 10 mg PO DAILY fluticasone propionate 50 mcg/actuation spray,suspension 2 spray intranasal DAILY PRN (Reason: Allergy Symptoms) Rx Instructions: administer into each nostril estradiol [Estrace] 0.01 % (0.1 mg/gram) cream 1 appful vaginal DAILY Qty: 42.5 2RF Rx Instructions: for 14 days, then twice weekly after that hydrocodone-acetaminophen 10-325 mg tablet 1 tab PO QID PRN (Reason: Pain) zolpidem [Ambien] 5 mg tablet 5 mg PO BEDTIME PRN (Reason: Sleep) multivitamin Tablet 1 tab PO DAILY celecoxib 200 mg capsule 200 mg PO BEDTIME omeprazole 40 mg capsule,delayed release(DR/EC) 40 mg PO BEDTIME Calcium Gummies 2 tab PO BEDTIME Excedrin Migraine 250-250-65 mg Tablet 2 tab PO Q6H PRN (Reason: Migraine Headache) Discharge Orders: Discharge Order (Routine); Ordered 03/05/22 Ordered By: Nadine Leach Referrals: Nadine Leach MD [Physician] - 03/10/22 10:45 am (Your 1 week post op appointment is scheduled for 03/10 at 10:45am. Your 6 week post op appointment is scheduled for 04/14 at 02:15pm.) Patient Instructions: Opioid Safety Discharge Attestations Time Spent in Discharge Care*: less than 30 min Status at Discharge: Cognitive status at discharge: cognitively intact, Behavioral status at discharge: cooperative, Quality Metrics Clinical Quality Measures [ No reported AMI, CVA or VTE this stay] Coding Level of Care Code Acute g FW DC note Diagnoses Stress incontinence N39.3
[2022-03-05 11:25] VITALS: BP 146/82; PULSE 75; RESP 16; TEMP 36.6; O2SAT 95
[2022-03-05] MEDS: HYDROcodone-acetaminophen 5-325 mg Tablet PO (11:25)
== END 2022-03-05 11:40 | disposition home or self-care (01) ==
LOC: OBGYN 14:20
PROVIDERS: Admitting Provider Obstetrics & Gynecology; PCP Electrodiagnostic Medicine; Visit Provider Obstetrics & Gynecology
PROC: (CPT 57288; principal; 2022-03-04 13:00)
DX: N39.3 Stress incontinence (female) (male) (principal); I10 Essential (primary) hypertension; K21.9 Gastro-esophageal reflux disease without esophagitis
CPT/HCPCS: 57288; 36415; 51798; 80048; 85025; 85027; 96374; 96376; C1713; G0378; J0690; J1100; J1170; J1200; J1885; J1940; J2250; J2405; J2704; J3010; J7030

== ENCOUNTER → 2022-04-14 12:38 | Outpatient (BNVA) | payer MEDICARE, SELFPAY | PROVIDERS: PCP Electrodiagnostic Medicine; Visit Provider Internal Medicine | DX: D35.2 Benign neoplasm of pituitary gland (principal); E23.7 Disorder of pituitary gland, unspecified; R51.9 Headache, unspecified; R42 Dizziness and giddiness; R63.5 Abnormal weight gain; F32.9 Major depressive disorder, single episode, unspecified; Z68.39 Body mass index [BMI] 39.0-39.9, adult | CPT/HCPCS: 99214 ==

== ENCOUNTER 2022-10-03 18:39 | Emergency (ER) | payer MEDICARE, SELFPAY ==
[2022-10-03 18:43] VITALS: BP 177/120; PULSE 97; RESP 20; TEMP 36.5; O2SAT 98; BMI 38.7
[2022-10-03 19:24] VITALS: BP 183/125; PULSE 87; RESP 17; O2SAT 99
--- NOTE | 2022-10-03 19:44 | CTR_ITS ---
PROCEDURE INFORMATION: Exam: CT Head Without Contrast Exam date and time: 10/03/2022 7:55 PM Age: 62 years old Clinical indication: Pain; Headache not specified; Additional info: Dizzy HTN TECHNIQUE: Imaging protocol: Computed tomography of the head without contrast. Radiation optimization: All CT scans at this facility use at least one of these dose optimization techniques: automated exposure control; mA and/or kV adjustment per patient size (includes targeted exams where dose is matched to clinical indication); or iterative reconstruction. REPORTING DATA: Count of CT and Cardiac NM exams in prior 12 months: This patient has received 0 known CTs and 0 known cardiac nuclear medicine studies in the 12 months prior to the current study. COMPARISON: MR bautista's wo/w con* [id number] 07/26/2021 11:52 AM RADIATION DOSE METRICS: Total DLP (mGy-cm): 1101.18 FINDINGS: Brain: No hemorrhage. No edema. Mild diffuse cerebral atrophy and sequela of chronic small vessel ischemic disease. No mass effect. Cerebral ventricles: No ventriculomegaly. Paranasal sinuses: Visualized sinuses are unremarkable. No fluid levels. Mastoid air cells: Visualized mastoid air cells are well aerated. Bones/joints: Unremarkable. No acute fracture. Soft tissues: Unremarkable. CT/CT head wo con* [id number] IMPRESSION: No acute intracranial abnormality.
--- NOTE | 2022-10-03 19:44 | XRR_ITS ---
PROCEDURE INFORMATION: Exam: XR Chest Exam date and time: 10/03/2022 8:00 PM Age: 62 years old Clinical indication: Other: HTN; Additional info: HTN dizzy TECHNIQUE: Imaging protocol: Radiologic exam of the chest. Views: 1 view. COMPARISON: CR XR chest 2V* [id number] 11/07/2019 12:58 PM FINDINGS: Lungs: Unremarkable. No consolidation. Pleural spaces: Unremarkable. No pleural effusion. No pneumothorax. Heart/Mediastinum: Unremarkable. No cardiomegaly. Bones/joints: Unremarkable. XR/XR chest 1V portable [id number] IMPRESSION: No acute findings.
--- NOTE | 2022-10-03 19:46 | ECG_ITS ---
[facility] Test Date: 2022-10-03 Pat Name: Angy Quintero Department: Room: Gender: Female Controller Operations And Hr Manager: : [id number] Requested By: Elvin Pedroza Order Number: [id number] Phillip MD: Daniel Brock M.D. Measurements Intervals [place] Rate: 81 P: 26 AL: 128 QRS: 8 QRSD: 102 T: 30 QT: 390 QTc: 454 Interpretive Statements SINUS RHYTHM NONSPECIFIC T-WAVE ABNORMALITY Compared to ECG 10/29/2019 22:05:40 T-wave abnormality now present Right bundle-branch block no longer present Left anterior fascicular block no longer present Myocardial infarct finding no longer present Electronically Signed On 10-03-2022 21:35:20 CDT by Daniel Brock M.D. [id number]
[2022-10-03 19:55] LABS: Basophils # 0.1 10^3/uL (0.0-0.1); Basophils % 0.9 %; Eosinophils # 0.3 10^3/uL (0.0-0.8); Eosinophils % 2.6 %; Hematocrit 46.7 % (37.0-47.0); Hemoglobin 14.7 g/dL (11.5-15.3); Lymphocytes # 2.6 10^3/uL (0.8-4.8); Lymphocytes % 25.8 %; Mean Corpuscular HGB Conc 31.5 g/dL (30.0-36.0); Mean Corpuscular Hemoglobin 27.4 pg (28.0-34.0); Mean Corpuscular Volume 87.1 fl (81-99); Mean Platelet Volume 9.8 fL (7.4-10.4); Monocytes # 0.6 10^3/uL (0.2-0.9); Monocytes % 6.4 %; Neutrophils # 6.38 10^3/uL (1.8-7.7); Neutrophils % 63.9 %; Nucleated Red Blood Cells % 0 %; Platelet Count 276 10^3/cmm (130-400); Red Blood Count 5.36 10^6/uL (4.1-5.3); Red Cell Distribution Width 12.8 % (12.1-15.1)
[2022-10-03] MEDS: amlodipine 10 mg Tablet PO (20:06)
[2022-10-03] MEDS: LORazepam 2 mg/mL INJ 1 mL 0.5 MG IVP (20:06)
[2022-10-03] MEDS: labetalol 5 mg/mL SDV 20mL 20 MG IVP (20:09)
--- NOTE | 2022-10-03 20:11 | ED_ITS ---
HPI - Dizziness General: Chief Complaint: Dizziness Stated Complaint: high bp, dizzy Time Seen by Provider: 10/03/22 19:18 Source: patient and family History of Present Illness: HPI Narrative: 62-year-old female sent over from urgent care for symptomatic hypertension. She says she has had head pressure and dizziness to an increasing over the last 3 days with a high blood pressure at home. She denies any chest pain pain or pres sure. She has a history of chronic vertiginous symptoms, but she feels the symptoms are a bit different she took a Klonopin at home but this did not seem to help her symptoms or her blood pressure. She was recently placed on Keflex for a urinary tract infection MD elicited complaint: dizziness and other Pertinent past history: other Onset (ago): day(s) Timing: gradual onset Severity: moderate Description: lightheadedness and off-balance History of similar symptoms: Yes Exacerbating factors: movement/ambulation Relieving factors: nothing Associated symptoms: Reports cough, headache(s), malaise and nausea; Denies change in hearing, chills, fevers/chills, nasal congestion or short of breath Associated neuro symptoms: Deny confusion, difficulty speaking, dysphagia, diplopia, extremity weakness, facial numbness, facial weakness, numbness in extremities or visual changes Stroke scale total: 0 Review of Systems 2 Const: Reports: malaise; Denies: fever(s) or chills ENMT: Denies: change in hearing or nasal congestion Resp: Denies: dyspnea, productive cough or non-productive cough GI: Reports: nausea; Denies: abdominal pain or dysphagia : Reports: dysuria Neuro: Reports: headache(s); Denies: numbness in extremities or confusion PFSH ED PFSH: Medical History Asthma Colitis -As noted above -stool studies otherwise negative including C.difficile Depression History of menorrhagia Hypertension -VSS; continue to monitor -ACEi on hold due to continued renal impairment Iron deficiency Metabolic acidosis, increased anion gap -off sodium bicarbonate; improved -continue to monitor chemistry Oliguria Renal failure -appears to have at least some degree of CKD, no baseline labs to compare -significant acute renal impairment, oliguria likely multifactorial due to profuse diarrhea secondary to Salmonella enteritis, subsequent dehydration, CULLEN inhibitor use, poor oral intake -Continue to closely monitor renal function and urine output. Renal function is improving -Gutiérrez catheter discontinued and able to void independently without difficulty -Avoid nephrotoxins, renally dose meds -Nephrology consult appreciated -Continue to hold PPI -Renal ultrasound unremarkable -Hepatitis panel negative, AM cortisol wnl; serum immunofixation normal, negative TARYN, SS-A and SS-B antibodies negative, anti-dsDNA indeterminate -Continue IVF Salmonella enteritis -stool studies positive for Salmonella enteritis with evidence of diffuse colitis on imaging -on ceftriaxone (day 5/7); would continue this as oral intake has been mediocre; will d/c on ciprofloxacin for dual coverage, to complete treatment course -blood cx: negative UTI (urinary tract infection) -UA indicative of infection -urine cx: no growth -already on Ceftriaxone Surgical History H/O hernia repair H/O: hysterectomy History of back surgery History of cholecystectomy S/P cholecystectomy Tubal ligation status Family History Other Adopted Social History Smoking and tobacco status: never smoked Substance/Drug Use: never Physical Exam Const: COMMON NORMALS: no acute distress GENERAL APPEARANCE: cooperative; not ill appearing and not frail appearing HENMT: COMMON NORMALS: normocephalic, atraumatic and Normal external nose present HEAD & SCALP: normocephalic and atraumatic FACE & SINUS: normal facial exam and face symmetric NOSE: Normal external nose present Eye: COMMON NORMALS: Equal, round and reactive pupils present and EOMs intact bilaterally PUPIL: Yes Equal, round and reactive pupils present Neck/C-Spine: GENERAL: Yes trachea midline Chest: CHEST: Yes Symmetrical chest wall rise Resp: COMMON NORMALS: normal respiratory effort, No retractions, No use of accessory muscles and clear to auscultation bilaterally AUSCULTATION: clear to auscultation bilaterally Cardio: COMMON NORMALS: regular rate and regular rhythm RATE: regular rate RHYTHM: regular rhythm GI: COMMON NORMALS: Normal to inspection, nondistended, normoactive bowel sounds present Extremity: COMMON NORMALS: no pedal edema Neuro: CAROLE COMA SCALE: document GCS findings [place] coma scale eye opening: Spontaneous [place] coma scale verbal response: Orientated [place]ole coma scale motor response: Obey commands Carole coma scale total score: 15 SENSORY EXAM: Yes extremities (intact) Psych: COMMON NORMALS: speech normal SPEECH: Yes normal speech Skin: COMMON NORMALS: no rashes or lesions noted GENERAL SKIN EXAM: no rashes or lesions noted Course Vital Signs: Vital signs: Vital Signs Temperature 97.7 F 10/03/22 18:43 Pulse Rate 68 10/03/22 21:39 Respiratory Rate 14 10/03/22 21:39 Blood Pressure 137/81 10/03/22 21:39 Pulse Oximetry 93 10/03/22 21:39 Oxygen Delivery Me thod Room Air 10/03/22 20:17 MDM - Dizziness Medical Decision Making Patient with hypertension and headache with some dizziness. Dizziness is improved, after control of blood pressure. Patient was given IV labetalol, Vasotec, and oral amlodipine. Blood pressure now 133/92, heart rate 75, satur ations 94% on room air. She is left with a mild headache at this point. Head CT is negative. Chest x-ray is negative. EKG shows no acute ST changes. Headache will be treated. She will be allowed home. She will be given oral medication for blood pressure to take if blood pressure stays elevated. Lab Data 10/03/22 19:30 10/03/22 19:30 Radiology Impressions Chest X-Ray 10/03/22 19:44 IMPRESSION: No acute findings. Head CT 10/03/22 19:44 IMPRESSION: No acute intracranial abnormality. Laboratory Results WBC 10.0 10^3/uL (4.0-10.0) 10/03/22 19:30 RBC 5.36 10^6/uL (4.1-5.3) H 10/03/22 19:30 Hgb 14.7 g/dL (11.5-15.3) 10/03/22 19:30 Hct 46.7 % (37.0-47.0) 10/03/22 19:30 MCV 87.1 fl (81-99) 10/03/22 19:30 MCH 27.4 pg (28.0-34.0) L 10/03/22 19:30 MCHC 31.5 g/dL (30.0-36.0) 10/03/22 19:30 RDW 12.8 % (12.1-15.1) 10/03/22 19:30 Plt Count 276 10^3/cmm (130-400) 10/03/22 19: MPV 9.8 fL (7.4-10.4) 10/03/22 19:30 Neut % (Auto) 63.9 % 10/03/22 19:30 Lymph % (Auto) 25.8 % 10/03/22 19:30 [place] % (Auto) 6.4 % 10/03/22 19:30 Eos % (Auto) 2.6 % 10/03/22 19:30 Baso % (Auto) 0.9 % 10/03/22 19: Neut # (Auto) 6.38 10^3/uL (1.8-7.7) 10/03/22 19: Lymph # (Auto) 2.6 10^3/uL (0.8-4.8) 10/03/22 19: [place] # (Auto) 0.6 10^3/uL (0.2-0.9) 10/03/22 19: Eos # (Auto) 0.3 10^3/uL (0.0-0.8) 10/03/22 19: Baso # (Auto) 0.1 10^3/uL (0.0-0.1) 10/03/22: Nucleated RBC % (auto) 0 % 10/03/22: Nucleated RBCs # 0.0 /100WBC 10/03/22 19: Sodium 141 mmol/L (136-145) 10/03/22 19: Potassium 3.9 mmol/L (3.5-5.1) 10/03/22 19: Chloride 102 mmol/L (98-107) 10/03/22 19: Carbon Dioxide 25 mmol/L (22-29) 10/03/22 19:30 Anion Gap 17.9 (5-19) 10/03/22 19:30 BUN 11 mg/dL (8-23) 10/03/22 19:30 Creatinine 0.8 mg/dL (0.5-0.9) 10/03/22 19: GFR Calculation 73.2 mL/min (90-130) L 10/03/22: Glucose 107 mg/dL (65-115) 10/03/22 19:30 Calculated Osmolality 292 mOsm/kg (285-295) 10/03/22 19: Calcium 9.7 mg/dL (8.5-10.5) 10/03/22 19: Magnesium 1.8 mg/dL (1.7-2.3) 10/03/22 19: Total Bilirubin 0.3 mg/dL (0.15-1.2) 10/03/22 19: AST 27 U/L (0-32) 10/03/22 19: ALT 17 U/L (0-33) 10/03/22 19: Alkaline Phosphatase 223 U/L (35-105) H 10/03/22 19: Creatine Kinase 85 U/L (26-192) 10/03/22 19: C-Reactive Protein 3.1 mg/L (0.0-4.9) 10/03/22 19: NT-Pro-B Natriuret Pep 469 pg/mL (0-125) H 10/03/22 19: Total Protein 7.6 g/dL (6.6-8.7) 10/03/22 19: Albumin 4.3 g/dL (3.5-5.2) 10/03/22 19: Globulin 3.3 g/dL (1.3-4.6) 10/03/22 19:30 Urine Color Yellow (Yellow) 10/03/22 19:55 Urine Appearance Clear (CLEAR) 10/03/22 19:55 Urine pH 7 (5-7) 10/03/22 19:55 Ur Specific [place] 1.005 (1.005-1.030) 10/03/22 19:55 Urine Protein Neg (Negative) 10/03/22 19:55 Urine Glucose (UA) Norm (Normal) 10/03/22 19:55 Urine Ketones 1+ (Negative) H 10/03/22 19:55 Urine Blood Neg (Negative) 10/03/22 19:55 Urine Nitrate Negative (Negative) 10/03/22 19:55 Urine Bilirubin Neg (Negative) 10/03/22 19: Urine Urobilinogen Norm mg/dL (Negative) 10/03/22 19:55 Ur Leukocyte Esterase Trace (Negative) H 10/03/22 19:55 Urine RBC 0-4 /hpf (0-2) H 10/03/22 19:55 Urine WBC 5-10 /hpf (0-5) H 10/03/22 19:55 Ur Squamous Epith Cells None /hpf (0-5) 10/03/22 19:55 Amorphous Sediment Not Reportable 10/03/22 19:55 Urine Bacteria Trace /hpf (NONE) 10/03/22 19:55 Discharge Plan Discharge Patient Disposition: Home Clinical Impression: Headache, Hypertensive urgency Condition: Stable Prescriptions: New amlodipine 10 mg tablet 10 mg PO DAILY Qty: 30 0RF No Action desvenlafaxine succinate [Pristiq] 100 mg tablet extended release 24 hr 100 mg PO BEDTIME levocetirizine 5 mg tablet 5 mg PO BEDTIME clonazepam 0.5 mg tablet 0.5 mg PO DAILY PRN (Reason: Anxiety) meclizine 25 mg tablet 25 mg PO QID PRN (Reason: Dizziness) oxybutynin chloride 5 mg tablet extended release 24hr 5 mg PO DAILY tizanidine 2 mg capsule 2 mg PO Q8H PRN (Reason: Muscle Spasm) montelukast [Singulair] 10 mg tablet 10 mg PO DAILY fluticasone propionate 50 mcg/actuation spray,suspension 2 spray intranasal DAILY PRN (Reason: Allergy Symptoms) Rx Instructions: administer into each nostril estradiol [Estrace] 0.01 % (0.1 mg/gram) cream 1 appful vaginal DAILY Qty: 42.5 2RF Rx Instructions: for 14 days, then twice weekly after that metronidazole 500 mg tablet 500 mg PO BID Qty: 14 0RF hydrocodone-acetaminophen 10-325 mg tablet 1 tab PO QID PRN (Reason: Pain) zolpidem [Ambien] 5 mg tablet 5 mg PO BEDTIME PRN (Reason: Sleep) hydrocodone-acetaminophen 10-325 mg Tablet 1 tab PO QID PRN (Reason: Pain) Qty: 30 0RF docusate sodium 100 mg Capsule 100 mg PO BID Qty: 60 0RF multivitamin Tablet 1 tab PO DAILY celecoxib 200 mg capsule 200 mg PO BEDTIME omeprazole 40 mg capsule,delayed release(DR/EC) 40 mg PO BEDTIME Calcium Gummies 2 tab PO BEDTIME Excedrin Migraine 250-250-65 mg Tablet 2 tab PO Q6H PRN (Reason: Migraine Headache) Discharge Orders: Discharge ED (Routine); Ordered 10/03/22 Ordered By: Elvin Ball Referrals: Grzegorz Garcia, [Primary Care Provider] - 1-3 days Patient Instructions: Acute Headache (ED), Hypertension (ED), Opioid Safety, Pain Management Activity Restrictions/Additional Instructions: Check your blood pressure twice daily. If blood pressure remains greater than 150/90, take the medication you were prescribed. Record numbers for your doctor, and follow-up. Return for worsening dizziness, vomiting, weakness, vi sual changes, other concerning symptoms. Coding Level of Care Code ED Buyer Intern for Luis Lafleur
[2022-10-03] MEDS: enalaprilat 1.25 mg/mL Inj IVP (20:13)
[2022-10-03 20:17] VITALS: BP 157/109; PULSE 80; RESP 21; O2SAT 98
[2022-10-03 20:21] LABS: Urine Appearance Clear (CLEAR); Urine Color Yellow (Yellow)
[2022-10-03 20:22] LABS: Add Urine Microscopic? YES; Bacteria Urine TRACE /hpf; Bilirubin Urine Neg (Negative); Blood Urine Neg (Negative); Glucose Urine UA Norm (Normal); Ketones Urine 1+ (Negative); Leukocyte Esterase Urine Trace (Negative); Nitrate Urine Negative (Negative); Protein Urine Neg (Negative); RBC Urine 0-4 /hpf (0-2); Specific Gravity, Urine 1.005 (1.005-1.030); Urobilinogen Urine Norm (Negative); pH Urine 7 (5-7)
[2022-10-03 20:23] LABS: Alanine Aminotransferase 17 U/L (0-33); Albumin Level 4.3 g/dL (3.5-5.2); Alkaline Phosphatase 223 U/L (35-105); Anion Gap 17.9 (5-19); Aspartate Amino Transferase 27 U/L (0-32); Blood Urea Nitrogen 11 mg/dL (8-23); C Reactive Protein 3.1 mg/L (0.0-4.9); Calcium 9.7 mg/dL (8.5-10.5); Carbon Dioxide 25 mmol/L (22-29); Chloride 102 mmol/L (98-107); Creatine Phosphokinase 85 U/L (26-192); Globulin 3.3 g/dL (1.3-4.6); Glomerular Filtration Rate 73.2 mL/min (90-130); Glucose 107 mg/dL (65-115); Magnesium 1.8 mg/dL (1.7-2.3); NT Pro B Type Natriuretic Pept 469 pg/mL (0-125); Osmolality Calculated 292 mOsm/kg (285-295); Potassium 3.9 mmol/L (3.5-5.1); Sodium 141 mmol/L (136-145); Total Bilirubin 0.3 mg/dL (0.15-1.2); Total Protein 7.6 g/dL (6.6-8.7)
[2022-10-03 21:00] VITALS: BP 132/76; PULSE 71; RESP 16; O2SAT 97
[2022-10-03] MEDS: ondansetron 2 mg/ML SDV 2 mL 4 MG IVP (21:06)
[2022-10-03] MEDS: ketorolac 30 mg/mL INJ 15 MG IVP (21:06)
[2022-10-03 21:07] VITALS: RESP 16; O2SAT 97
[2022-10-03] MEDS: fentaNYL 50 mcg/mL INJ 2mL 75 MCG IVP (21:07)
[2022-10-03 21:39] VITALS: BP 137/81; PULSE 68; RESP 14; O2SAT 93
== END 2022-10-03 21:43 | disposition home or self-care (01) ==
PROVIDERS: Emergency Provider Emergency Medicine; PCP Electrodiagnostic Medicine
DX: R51.9 Headache, unspecified (principal); I16.0 Hypertensive urgency; I10 Essential (primary) hypertension
CPT/HCPCS: 70450; 71045; 80053; 81001; 82550; 83735; 83880; 85025; 86140; 93005; 96374; 96375; 99285; J1885; J2060; J2405; J3010; J3490

== ENCOUNTER → 2023-03-26 10:35 | Outpatient (BNVA) | payer MEDICARE, SELFPAY | PROVIDERS: PCP Electrodiagnostic Medicine; Visit Provider Internal Medicine | DX: D35.2 Benign neoplasm of pituitary gland (principal); R63.5 Abnormal weight gain; F32.9 Major depressive disorder, single episode, unspecified; Z68.39 Body mass index [BMI] 39.0-39.9, adult | CPT/HCPCS: 99214 ==

== ENCOUNTER 2023-04-23 10:22 | Outpatient (CLI) | payer MEDICARE, SELFPAY ==
[2023-04-23 11:40] LABS: Prolactin 12.08 ng/mL (4.8-23.3)
[2023-04-23 12:07] LABS: Cortisol Random 8.54 ug/dL (2.47-19.5); Free T4 Free Thyroxine 1.01 ng/dL (0.82-1.77)
[2023-04-28 11:59] LABS: IGF1 LC/MS 90 ng/mL (41-279); Z Score (Female) -0.7 SD (-2.0 - +2.0)
== END 2023-04-23 10:23 | disposition home or self-care (01) ==
LOC: LAB 10:22
PROVIDERS: PCP Electrodiagnostic Medicine; Visit Provider Internal Medicine
DX: D35.2 Benign neoplasm of pituitary gland (principal)
CPT/HCPCS: 36415; 82533; 84146; 84305; 84439; 84443

== ENCOUNTER 2024-02-17 13:42 | Outpatient (CLI) | payer MEDICARE, SELFPAY ==
--- NOTE | 2024-02-17 13:46 | MM_ITS ---
WS: [id number] BILATERAL 3D TOMOSYNTHESIS DIGITAL SCREENING MAMMOGRAPHY WITH CAD CLINICAL INFORMATION: SCREENING HISTORY: Screening mammogram. No current complaints. COMPARISON: 2020 TECHNIQUE: Bilateral CC and MLO views. FINDINGS: Scattered fibroglandular densities bilaterally. No suspicious focal mass, asymmetry, calcifications, or architectural distortion. No evidence of malignancy. Vascular calcifications. MM/MM scr tomosynthesis [id number] IMPRESSION: DENSITY: There are scattered areas of fibroglandular density. BI-RADS: 2 - Benign. FOLLOW UP: 1 Year Follow-up Recommend return to annual screening mammography.
== END 2024-02-17 13:43 | disposition home or self-care (01) ==
LOC: RAD 13:42
PROVIDERS: PCP Electrodiagnostic Medicine; Visit Provider Electrodiagnostic Medicine
DX: Z12.31 Encounter for screening mammogram for malignant neoplasm of breast (principal); R92.323 Mammographic fibroglandular density, bilateral breasts; R92.1 Mammographic calcification found on diagnostic imaging of breast
CPT/HCPCS: 77063; 77067

== ENCOUNTER → 2024-10-27 09:02 | Outpatient (BNVA) | payer MEDICARE, SELFPAY | PROVIDERS: PCP Electrodiagnostic Medicine; Visit Provider Internal Medicine | DX: D35.2 Benign neoplasm of pituitary gland (principal); E23.7 Disorder of pituitary gland, unspecified | CPT/HCPCS: 99214 ==

== ENCOUNTER 2024-10-31 08:07 | Outpatient (CLI) | payer MEDICARE, SELFPAY ==
[2024-10-31 09:39] LABS: Cortisol Random 19.19 ug/dL (2.47-19.5); Thyroid Stimulating Hormone 2.61 uIU/mL (0.27-4.20)
[2024-10-31 10:05] LABS: Prolactin 10.81 ng/mL (4.8-23.3)
[2024-11-04 05:39] LABS: Adrenocorticotropic Hormone 50 pg/mL (6-50)
[2024-11-06 22:49] LABS: IGF1 LC/MS 108 ng/mL (41-279); Z Score (Female) -0.3 SD (-2.0 - +2.0)
== END 2024-10-31 08:08 | disposition home or self-care (01) ==
PROVIDERS: Internal Medicine; PCP Electrodiagnostic Medicine; Visit Provider Internal Medicine
DX: F32.9 Major depressive disorder, single episode, unspecified (principal); R63.5 Abnormal weight gain; R42 Dizziness and giddiness; R51.9 Headache, unspecified; D35.2 Benign neoplasm of pituitary gland
CPT/HCPCS: 82024; 82533; 84146; 84305; 84439; 84443

== ENCOUNTER 2025-05-17 21:57 | Emergency (ER) | payer MEDICARE, SELFPAY ==
--- NOTE | 2025-05-17 07:21 | XRR_ITS ---
PROCEDURE INFORMATION: Exam: XR Right Foot Exam date and time: 05/17/2025 10:34 PM Age: 65 years old Clinical indication: Injury or trauma; Fall; Blunt trauma; Foot; Right; Additional info: Fall, injury TECHNIQUE: Imaging protocol: Radiologic exam of the right foot. Views: 3 or more views. COMPARISON: CR XR foot RT min 3V* [id number] 09/04/2020 10:26 AM FINDINGS: Bones/joints: Nondisplaced fracture of the base of the 5th metatarsal. Soft tissues: Normal. XR/XR foot RT min 3V* [id number] IMPRESSION: Nondisplaced fracture of the base of the 5th metatarsal.
--- OUTSIDE RECORDS SUMMARY | 2025-05-17 22:02 | XMS_ITS | Data Portability ---
Author Organization [facility] Address [address] [address] Care Team Providers Care Cold Roll Inspector Name Role Phone SHIPMANSUMAN Primary Care Provider [phone] Assessment Encounter Date Assessment Date Assessment LastModified by Organization Details LastModified Time 06/06/2024 06/06/2024 Patient presente d to office today for their Medicare Annual Wellness Visit. Education was provided on healthy nutrition, including a diet rich in fruits and vegetables, minimizing simple carbohydrates, salt, and saturated fats. Encouraged regular cardiovascular exercise such as walking at least 30 minutes daily, 5 times per week. Emphasized preventive health measures and educated pt on fall prevention and community-based lifestyle interventions to help reduce health risks and promote healthy living. Patient presented to office today for their Medicare Annual Wellness Visit. Education was provided on healthy nutrition, including a diet rich in fruits and vegetables, minimizing simple carbohydrates, salt, and saturated fats. Encouraged regular cardiovascular exercise such as walking at least 30 minutes daily, 5 times per week. Emphasized preventive health measures and educated pt on fall prevention and community-based lifestyle interventions to help reduce health risks and promote healthy living. [email or web address] Not available 06/09/2024 17:39:46 06/29/2024 06/29/2024 A Care Coordination Assessment form was filled out as part of this patient's office visit today. [email or web address] Not available 06/30/2024 12:29:03 03/27/2025 03/27/2025 pt to go to ER with any significant chest pain. [email or web address] Not available 03/27/2025 13:48:10 Plan of Treatment Reminders Order Date Submit Date Provider Last Modified By Organization Details Last Modified Time Details Appointments None recorded. Lab noninvasive colorectal cancer DNA + occult blood screening, QL, stool 2024 025 [email or web address] [facility], [address], [address], [place], [address], 5 10:17:01 Referral None recorded. Procedures None recorded. Surgeries None recorded. Imaging bone density [email or web address] [place] [address] (Scheduling Orders), [address] [place], [address], 5 13:36:43 Medication Orders prednisone 20 mg tablet 2024 025 [facility] 15, [address], [place], [address], 05:01:36 amoxicillin 875 mg-potassiu m clavulanate 125 mg tablet 2024 025 [facility] 15, [address], [place], [address], 5 05:01:12 albuterol sulfate HFA 90 mcg/actuati on aerosol inhaler 2024 025 [facility] 15, [address], [place], [address], 13:17:32 Airsupra 90 mcg-80 mcg/actuati on HFA aerosol inhaler [email or web address] [place] [address] 15, [address], [place], [address], 16:04:40 Trelegy Ellipta 200 mcg-62.5 mcg-25 mcg powder for inhalation 2024 025 [facility] 15, [address], [place], [address], 5 16:22:26 Airsupra 90 mcg-80 mcg/actuati on HFA aerosol inhaler 2024 025 [email or web address] 47 [facility] 15, [address], [place], [address], 5 09:47:05 Trelegy Ellipta 100 mcg-62.5 mcg-25 mcg powder for inhalation 2024 025 [email or web address] [facility] 15, [address], [place], [address], 5 15:46:46 prednisone 20 mg tablet 2024 025 [facility] 15, [address], [place], [address], 5 05:01:36 azithromyci n 250 mg tablet 2024 025 [facility] 15, [address], [place], [address], 16:42:12 Patient TargetsNo targets recorded. Patient Instructions Encounter Date Encounter Id Patient Instructions Last Modified By Organization Details Last Modified Time 06/06/2024 [id number] care plan* [email or web address] Not available 17:40:37 advance care planning: care instructions [email or web address] Not available 06/09/2024 17:42:02 nutrition for older adults: care instructions [email or web address] Not available 06/09/2024 17:42:01 preventing falls : care instructions [email or web address] Not available 06/09/2024 17:42:02 Learning About Being Physically Active [email or web address] Not available 06/09/2024 17:42:01 Reason for Referral None Reported. Results Created Date Observation Date Name Description Value Unit Range Abnormal Flag Note LastModifiedBy Organization Detail LastModifiedTime 02/23/2002/23/2024 CBC WBC 7.1 x10 4.0-10 .5 Not Available [facility] [address], [place], [address], 02/23/2024 11:54:10 02/23/2002/23/2024 CBC RBC 4.60 x10 3.50-5 .50 Not Available [facility] [address], [place], [address], 02/23/2024 11:54:10 02/23/2002/23/2024 CBC HGB 12.9 g/dL 12.0-1 6.0 Not Available [facility] [address], [place], [address], 02/23/2024 11:54:10 02/23/2002/23/2024 CBC HCT 39.1 % 37.0-4 7.0 Not Available [facility] [address] [facility] 1, [place], [address], 02/23/2024 11:54:10 02/23/2002/23/2024 CBC MCV 84.9 fL 80.0-9 9.9 Not Available [facility] [address] [facility] 1, [place], [address], 02/23/2024 11:54:10 02/23/2002/23/2024 CBC MCH 28.1 pg 27.0-3 2.0 Not Available [facility] [address] [facility] 1, [place], [address], 02/23/2024 11:54:10 02/23/2002/23/2024 CBC MCHC 33.0 g/dL 32.0-3 6.0 Not Available [facility] [address] [facility] 1, [place], [address], 02/23/2024 11:54:10 02/23/20 24 02/23/2024 CBC RDW 13.9 % 11.5-1 4.5 Not Available [facility] [address] [address], [place], [address], 02/23/2024 11:54:10 02/23/2002/23/2024 CBC plt 255.5 x10 140.0- 451.0 Not Available [facility] [address] [address], [place], [address], 02/23/2024 11:54:10 02/23/2002/23/2024 CBC lymphocytes % 40.6 % 20.0-5 0.0 Not Available [facility] [address] [address], [place], [address], 02/23/2024 11:54:10 02/23/20 24 02/23/2024 CBC granulcytes % 47.3 % 30.0-7 0.0 Not Available [facility] [address] [address], [place], [address], 02/23/2024 11:54:10 02/23/2002/23/2024 CBC monocytes % 7.8 % 2.0-16 .0 Not Available [facility] [address] [address], [place], [address], 02/23/2024 11:54:10 02/23/20 24 02/23/2024 CBC granulcytes# 3.4 x10 Not Maida ilable [facility] [address] [address], [place], [address], 02/23/2024 11:54:10 02/23/20 24 02/23/2024 CBC lymphocytes # 2.9 x10 Not Available [facility] [address] [address], [place], [address], 02/23/2024 11:54:10 02/23/2002/23/2024 CBC monocytes # 0.6 x10 Not Avai lable [facility] [address] [facility] 1, [place], [address], 02/23/2024 11:54:10 02/23/2002/23/2024 CMP (FEMA LE) glucose 105.0 mg/dL 60.0-9 9.0 high Not Available [facility] [address] [place] [facility], [place], [address], 02/23/2024 12:24:04 02/23/2002/23/2024 CMP (FEMA LE) BUN (blood urea nitrogen) 13.0 mg/dL 10.0-2 6.0 Not Available [facility] [address] [facility], [place], [address], 02/23/2024 12:24:04 02/23/2002/23/2024 CMP (FEMA LE) creatinine (serum) 1.0 mg/dL 0.4-1. 5 Not Available [facility] [address] [facility], [place], [address], 02/23/2024 12:24:04 02/23/20 24 02/23/2024 CMP (FEMA LE) BUN/creatini ne ratio 12.87 ratio Not Available [facility] [address] [facility], [place], [address], 02/23/2024 12:24:04 02/23/2002/23/2024 CMP (FEMA LE) eGFR calculated 59.0 Not Available [facility] [address] [facility] 1, [place], [address], 02/23/2024 12:24:04 02/23/2002/23/2024 CMP (FEMA LE) total protein 6.9 g/dL 6.0-8. 5 Not Available [facility] [address] [facility] 1, [place], [address], 02/23/2024 12:24:04 02/23/20 24 02/23/2024 CMP (FEMA LE) total bilirubin 0.4 mg/dL 0.2-1. 3 Not Available [facility] [address] [place] [facility], [place], [address], 02/23/2024 12:24:04 02/23/2002/23/2024 CMP (FEMA LE) albumin 4.0 g/dL 3.5-5. 5 Not Available [facility] [address] [place] [facility], [place], [address], 02/23/2024 12:24:04 02/23/2002/23/2024 CMP (FEMA LE) globulin 2.9 calc Not Available [facility] [address] [facility], [place], [address], 02/23/2024 12:24:04 02/23/20 24 02/23/2024 CMP (FEMA LE) AST (SGOT) 32.0 U/L 0.0-46 .0 Not Available [facility] [address] [facility] [address], [place], [address], 02/23/2024 12:24:04 02/23/2002/23/2024 CMP (FEMA LE) altv (SGPT) 13.0 U/L 13.0-6 9.0 normal Not Available [facility] [address] [place] [address] [facility] 1, [place], [address], 02/23/2024 12:24:04 02/23/20 24 02/23/2024 CMP (FEMA LE) A/G ratio 1.4 ratio Not Available [facility] [address] [facility] 1, [place], [address], 02/23/2024 12:24:04 02/23/2002/23/2024 CMP (FEMA LE) ALP phos 146.0 U/L 30.0-1 40.0 abnormal Not Available [facility] [address] [place] [facility], [place], [address], 02/23/2024 12:24:04 02/23/2002/23/2024 CMP (FEMA LE) calcium 9.4 mg/dL 8.4-10 .5 Not Available [facility] [address] [place] [facility], [place], [address], 02/23/2024 12:24:04 02/23/2002/23/2024 CMP (FEMA LE) sodium 139.0 mmol/ L 136.0- 145.0 Not Available [facility] [address] [facility] [address], [place], [address], 02/23/2024 12:24:04 02/23/2002/23/2024 CMP (FEMA LE) potassium 4.3 mmol/ L 3.5-5. 1 Not Available [facility] [address] [facility] [address], [place], [address], 02/23/2024 12:24:04 02/23/2002/23/2024 CMP (FEMA LE) chloride 108.0 mmol/ L 98.0-1 10.0 normal Not Available [facility] [address] [place] [facility], [place], [address], 02/23/2024 12:24:04 02/23/2002/23/2024 CMP (FEMA LE) C02 29.0 mmol/ L 22.0-3 1.0 Not Available [facility] [address] [facility] [address], [place], [address], 02/23/2024 12:24:04 02/23/2002/23/2024 CMP (FEMA LE) anion gap 2.0 calc Not Available [facility] [address] [facility] [address], [place], [address], 02/23/2024 12:24:04 02/23/20 24 02/23/2024 CMP (FEMA LE) osmolality 287.6 calc Not Available [facility] [address] [facility] [address], [place], [address], 02/23/2024 12:24:04 02/23/2002/25/2024 CULTU RE, URINE , ROUTI NE culture, urine, routine SEE NOTE CULTU RE, URINE , ROUTI NE Micro Numbe r: [id number] Test Statu s: Final Speci men Sourc e: Urine , clean catch Speci men Quali ty: Adequ ate Resul t: No Growt h Not Available [facility] [address] [place], [address], 02/25/2024 02:03:06 02/23/2002/23/2024 urina lysis , compl ete color dark yellow Not Available [facility] ([facility]) [address] [place] [address], [address], 2024 23:34:39 02/23/2002/23/2024 urina lysis , compl ete clarity clear clear Not Available [facility] ([facility]) [address] [place], [address], 2024 23:34:39 02/23/2002/23/2024 urina lysis , compl ete glucose NG negati ve Not Available [facility] ([facility]) [address] [place], [address], 2024 23:34:39 02/23/20 24 02/23/2024 urina lysis , compl ete bilirubin NG negati ve Not Available [facility] ([facility]) [address] [place], [address], 2024 23:34:39 02/23/20 24 02/23/2024 urina lysis , compl ete ketones NG negati ve Not Available [facility] ([facility]) [address] [place], [address], 2024 23:34:39 02/23/2002/23/2024 urina lysis , compl ete specific gravity >=1.03 0 1.005- 1.025 Not Available [facility] ([facility]) [address] [place], [address], 2024 23:34:39 02/23/20 24 02/23/2024 urina lysis , compl ete pH 6.0 5.0-7. 0 Not Available [facility] ([facility]) [address] [place], [address], 2024 23:34:39 02/23/20 24 02/23/2024 urina lysis , compl ete protein NG Not Available [facility] ([facility]) [address] [place], [address], 2024 23:34:39 02/23/20 24 02/23/2024 urina lysis , compl ete uro 0.2 Not Available [facility] ([facility]) [address] [place], [address], 2024 23:34:39 02/23/20 24 02/23/2024 urina lysis , compl ete nitrate NG negati ve Not Available [facility] ([facility]) [address] [place], [address], 2024 23:34:39 02/23/20 24 02/23/2024 urina lysis , compl ete blood NG negati ve Not Available [facility] ([facility]) [address] [place], [address], 2024 23:34:39 02/23/20 24 02/23/2024 urina lysis , compl ete leukocytes NG negati ve Not Available [facility] ([facility]) [address] [place], [address], 2024 23:34:39 02/23/20 24 02/23/2024 urina lysis , compl ete WBC 10-12 0 abnormal Not Available [facility] ([facility]) [address] [place], [address], 2024 23:34:39 02/23/20 24 02/23/2024 urina lysis , compl ete RBC 0-1 0 Not Available [facility] ([facility]) [address] [place], [address], 2024 23:34:39 02/23/20 24 02/23/2024 urina lysis , compl ete epi cells 6-8 0 abnormal Not Available [facility] [address] [place], [address], 2024 23:34:39 02/23/20 24 02/23/2024 urina lysis , compl ete bacteria trace of mixed gilma abnormal Not Available [facility] ([facility]) [address] [place], [address], 2024 23:34:39 02/23/20 24 02/23/2024 urina lysis , compl ete other NG Not Available [facility] ([facility]) [address] [place], [address], 2024 23:34:39 09/04/19 25 09/03/2024 COLOG UARD cologuard result reportable NEGATI VE negati ve normal The Colog uard (TM) test was perfo rmed on this speci men. NEGAT AZAEL TEST RESUL T. A negat azael Colog uard resul t indic ates a low likel ihood that a color ectal cance r (CRC) or advan daivd adeno ma (lisa omato us polyp s with more advan david pre-m align ant featu res) is prese nt. The chanc e that a perso n with a negat azael Colog uard test has a color ectal cance r is less than 1 in 1500 (nega tive predi ctive value >99.9 %) or has an advan david adeno ma is less than 5.3% (nega tive predi ctive value 94.7% ). These data are based on a prosp ectiv e cross -sect ional study of 10,00 0 indiv idual s at [place] risk for color ectal cance r who were scree jaycee with both Colog uard and colon oscop y. (Mable Jennings et al, N Engl J Med 2014; 370(1 4):12 86-12 97) The hollis l value (refe rence range ) for this assay is negat azael. COLOG UARD RE-SC REENI NG RECOM MENDA TION: Perio dic color ectal cance r scree quoc is an impor tant part of preve ntive healt hcare for asymp tomat ic indiv idual s at [place] risk for color ectal cance r. Follo wing a negat azael Colog uard resul t, the Ameri can Cance r Socie ty and U.S. Multi -Soci ety Task Force scree quoc guide lines recom mend a Colog uard re-sc reeni ng inter brian of 3 years . Refer ences : Ameri can Cance r Socie ty Guide line for Color ectal Cance r Scree quoc: https ://roddy w.can cer.o rg/ca ncer/ colon -rect al-ca ncer/ detec tion- diagn osis- stagi ng/ac s-rec ommen datio ns.ht ml.; Fredo BECERRIL, Sandor ramon CR, Lisa SAWYER, Color ectal Cance r Scree quoc: Recom menda tions for Physi cians and Patie nts from the U.S. Multi -Soci ety Task Force on Color ectal Cance r Scree quoc , Becca moralesnte rolog y 2017; 112:1 016-1 030. TEST DESCR IPTIO N: [place] site algor ithmi c levi sis of stool DNA-b cari cramer with hemog lobin immun oassa y. Quant itati ve value s of indiv idual bioma rkers are not repor table and are not assoc iated with indiv idual bioma rker resul t refer ence range s. Colog uard is inten ded for color ectal cance r scree quoc of adult s of eithe r sex, 45 years or older , who are at [facility] for color ectal cance r (CRC) . Colog uard has been appro concah for use by the U.S. FDA. The perfo rmanc e of Colog uard was estab lishe d in a cross secti onal study of [facility] adult s aged 50-84 . Colog uard perfo rmanc e in patie nts ages 45 to 49 years was estim ated by lucio-g biisp levi sis of near- age group s. Colon oscop ies perfo rmed for a posit azael resul t may find as the most clini raad signi ficlee t lesio n: color ectal cance r [4.0% ], advan david adeno ma (incl uding sessi le rebeca summer polyp s great er than or equal to 1cm diame ter) [20%] or non- advan david adeno ma [31%] ; or no color ectal neopl sue [45%] . These estim ates are deriv ed from a prosp ectiv e cross -sect ional scree quoc study of 10,00 0 indiv idual s at [facility] risk for color ectal cance r who were scree jaycee with both Colog uard and colon oscop y. (Mable Jennings et al, N Engl J Med 2014; 370(1 4):12 86-12 97.) Colog uard may produ ce a false negat azael or false posit azael resul t (no color ectal cance r or preca ncero us polyp prese nt at colon oscop y follo w up). A negat azael Colog uard test resul t does not guara ntee the absen ce of CRC or advan david adeno ma (pre- cance r). The curre nt Colog uard scree quoc inter brian is every 3 years . (Amer ican Cance r Socie ty and U.S. Multi -Soci ety Task Force ). Colog uard perfo rmanc e data in a 10,00 0 patie nt pivot al study using colon oscop y as the refer ence metho d can be acces sed at the follo wing locat ion: www.e xactl abs.c om/re alexus . Addit ional descr iptio n of the Colog uard test proce ss, warni ngs and preca ution s can be found at www.c ologu kamlesh.c om. Not Available [facility] [address], [place], [address], 09/10/2024 05:59:44 02/17/20 24 02/17/2024 MAMMO , scree quoc, digit al, bilat eral No observ ation record ed. [email or web address] [facility] [address] [place], [address], 02/23/2024 19:04:02 Result Notes None recorded. Problems Name Problem SNOMED Code Status Onset Date Resolution Date Notes Provider Name and Address Organization Details Recorded Time Viral hepatitis, type A 22576965 Active 2021 Hepatitis A Laxmi Connolly [facility] 15:27:08 Depressive disorder 93188706 Active 2021 Depression Laxmi Connolly null, [facility] 5 15:27:08 Restless legs syndrome 92700295 Active 2021 Restless Leg Syndrome Laxmi Connolly null, [facility] 5 15:27:08 Vitamin B deficiency NOS Active 2021 Vitamin B-12 Deficiency Laxmi Connolly null, [facility] 5 15:27:08 Chronic anemia 428087449 Active 2021 Chronic Anemia Laxmi Connolly null, [facility] 5 15:27:08 Asthma 469992262 Active 2021 Asthma Laxmi Connolly null, [facility] 5 15:27:08 Vitamin D deficiency 50119995 Active 2021 Vitamin D deficiency Laxmimaría Connolly null, [facility] 5 15:27:08 Essential hypertensi on 89749119 Active 2022 [facility] 15:27:08 Pituitary adenoma 099997512 Active 2022 Laxmi Connolly null, [facility] 5 15:27:08 Chronic rhinosinus itis 068795841 Active 2022 Laxmi Connolly null, [facility] 5 15:27:08 Degenerati on of lumbar interverte bral disc 74079484 Active 2022 Laxmi Connolly null, [facility] 5 15:27:08 Chronic low back pain 201910171 Active 2022 Laxmi etienne [facility] 5 15:27:08 Chronic sacroiliac joint pain 124018265 Active 2022 Laxmimaría etienne, [facility] 5 15:27:08 Iron deficiency anemia 25287087 Active 2022 Laxmi Connolly jaimie [facility] 5 15:27:08 Gastroesop hageal reflux disease 302053790 Active 2022 Laxmi etienne [facility] 5 15:27:08 Displaceme nt of lumbar interverte bral disc without myelopathy 74943023 Active 2022 Laxmi etienne [facility] 5 15:27:08 Chronic constipati on 696069751 Active 2022 Laxmi Cathleen etienne [facility] 5 15:27:08 Overactive urinary bladder 245235084 Active 2022 Laxmi Cathleen etienne [facility] 5 15:27:08 Insomnia 350146514 Active 2023 Laxmi etienne [facility] 5 15:27:08 Morbid obesity 973696473 Active 2023 Laxmi etienne [facility] 5 15:27:08 Moderate persistent asthma 776905001 Active 2024 Laxmi etienne [facility] 5 15:27:08 Pneumonia 409340854 Active 2024 Suman Shipman DO [address] [place] [address], [address], [facility] 5 13:16:20 Problem Notes None recorded. Procedures Surgical History Date Name Laterality Status Provider Name and Address Organization Details Recorded Time 08/11/19 24 Joint Inj [place]- Shoulder, Hip, Knee completed Gabriele Paulino [facility] 08/11/2023 18:04:26 11/27/19 23 Joint Inj [place]- Shoulder, Hip, Knee completed Suman Shimpan, [address], [address], [facility] 11/26/2022 13:08:53 hernia repair completed [facility] 06/02/2024 14:06:18 Gallbladder Surgery completed [facility] 06/02/2024 14:06:26 Tubal Ligation completed [facility] 06/02/2024 14:06:31 Total Hysterectomy completed [facility] 06/02/2024 14:06:36 section completed [facility] 06/02/2024 14:07:00 Imaging Results None recorded. Procedure Notes None recorded. Medical Equipment None Reported. Allergies Allergen ID Allergen Name Allergen Category Reaction Reaction Severity Criticality Documentation Date Start Date Code Code System Note Provider Name and Address Organization Details Recorded Time 2944 amoxicill in trihydrat e medicatio n Not available Not available Not available 10/03/2022 43912 8 RxNorm KAELA YOON [facility] 3 19:05:13 2945 tetracycl ine medicatio n hives itching swelling mild mild moderate low 10/03/2022 24466 RxNorm Alicia Pablo [facility] 4 08:17:28 2946 Ozempic medicatio n Not available Not available Not available 10/03/2022 07 RxNorm KAELA etienne [facility] 3 19:05:30 2947 Bactrim medicatio n Not available Not available Not available 10/03/2022 83466 9 RxNorm KAELA etienne [facility] 3 19:05:36 2948 codeine medicatio n other moderate high 10/03/2022 2670 RxNorm becom es viole nt Alicia etienne [facility] 4 08:17:05 80065 Abilify medicatio n Not available Not available Not available 06/02/2024 66802 3 RxNorm Jennifer etienne [facility] 5 14:05:47 63756 amlodipin e medicatio n Not available Not available Not available 06/02/2024 64554 RxNorm Jennifer etienne [facility] 5 14:05:57 77580 Trelegy medicatio n hives Not available Not available 07/06/20242024 39539 40 RxNorm [facility] 5 10:10:45 Medications Name Sig Start Date Stop Date Status Note LastModified by Organization Details LastModified Time celecoxib 200 mg capsule bid active Not Available Not Available Not Available amoxicill in 500 mg capsule 06/16 completed Not Available Not Available Not Available tizanidin e 2 mg tablet Take 1 tablet every day by oral route as needed. active Not Available Not Available No t Available azithromy pau 250 mg tablet TAKE 2 TABLETS (500 MG) BY ORAL ROUTE ONCE DAILY FOR 1 DAY THEN 1 TABLET (250 MG) BY ORAL ROUTE ONCE DAILY FOR 4 DAYS 06/06 completed Not Available Not Available Not Available fluconazo le 150 mg tablet 01/06 completed Not Available Not Available Not Available prednison e 20 mg tablet Take 2 tablets every day by oral route for 7 days. 04/10 completed Not Available Not Available Not Available clonazepa m 0.5 mg tablet One po once a day as needed for stress/a nxiety active Not Available Not Available No t Available valsartan 80 mg tablet Take 1 tablet(s ) every day by oral route in the morning for 100 days. 2024 active Not Available Not Available Not Avai lable metronida zole 500 mg tablet TAKE 1 TABLET BY MOUTH TWICE DAILY 10/07 completed Not Available Not Available Not Available ciproflox acin 250 mg tablet TAKE 1 TABLET BY MOUTH TWICE DAILY FOR 4 DAYS 10/07 completed Not Available Not Available Not Available ciproflox acin 500 mg tablet TAKE 1 TABLET BY MOUTH EVERY 12 HOURS FOR 7 DAYS 02/22 completed Not Available Not Available Not Available hydrocodo ne 10 mg-acetam inophen 325 mg tablet TAKE 1 TABLET BY MOUTH EVERY 6 HOURS NEEDED active Not Available Not Available No t Available omeprazol e 40 mg capsule,d elayed release TAKE 1 CAPSULE EVERY MORNING 2024 active Not Available Not Available Not Avai lable betametha sone acetate and sodium phos 6 mg/mL suspensio n for injection Take 6 mg by injectio n route. 11/26 completed given IM in office. Not Available Not Available Not Available famotidin e 20 mg tablet TAKE 1 TABLET BY MOUTH TWICE DAILY NEEDED FOR ABDOMINA L PAIN 10/28 completed Not Available Not Available Not Available meclizine 25 mg tablet TAKE 1 TABLET BY MOUTH EVERY 6 HOURS NEEDED FOR DIZZINES S 11/22 completed Not Available Not Available Not Available amlodipin e 10 mg tablet TAKE 1 TABLET BY MOUTH ONCE DAILY 10/14 completed Not Available Not Available Not Available cephalexi n 500 mg capsule TAKE 1 CAPSULE BY MOUTH THREE TIMES DAILY FOR 7 DAYS 02/22 completed Not Available Not Available Not Available pantopraz ole 40 mg tablet,de layed release Take 1 tablet every day by oral route. active Not Available Not Available No t Available docusate sodium 100 mg capsule TAKE 1 CAPSULE BY MOUTH TWICE DAILY active Not Available Not Available No t Available oxybutyni n chloride ER 5 mg tablet,ex tended release 24 hr TAKE 1 TABLET EVERY DAY 2024 active Not Available Not Available Not Avai lable mont[place] st 10 mg tablet TAKE 1 TABLET EVERY DAY 2024 active Not Available Not Available Not Avai lable zolpidem 5 mg tablet TAKE 1 TABLET EVERY EVENING FOR INSOMNIA 2024 active Not Available Not Available Not Avai lable estradiol 0.01% (0.1 mg/gram) vaginal cream APPLY 1 GRAM VAGINALL Y ONCE DAILY FOR 14 DAYS THEN TWICE WEEKLY AFTER THAT 01/06 completed Not Available Not Available Not Available albuterol sulfate HFA 90 mcg/actua tion aerosol inhaler INHALE 2 PUFFS BY MOUTH EVERY 4 HOURS NEEDED active Not Available Not Available No t Available ondansetr on 4 mg disintegr ating tablet DISSOLVE 1 TABLET IN MOUTH THREE TIMES DAILY NEEDED FOR NAUSEA AND VOMITING 10/07 completed Not Available Not Available Not Available amoxicill in 875 mg-potass ium clavulana te 125 mg tablet Take 1 tablet every 12 hours by oral route as directed for 10 days. 04/13 completed Not Available Not Available Not Available ceftriaxo ne 2 gram solution for injection Take 2 g by injectio n route. 06/02 completed Not Available Not Available Not Available valsartan 160 mg tablet Take 1 tablet by mouth once daily in the morning 08/10 completed Not Available Not Available Not Available nitrofura ntoin monohydra te/macroc rystals 100 mg capsule TAKE 1 CAPSULE BY MOUTH EVERY 12 HOURS FOR 7 DAYS 01/06 completed Not Available Not Available Not Available chlorhexi dine gluconate 0.12 % mouthwash 08/10 completed Not Available Not Available Not Available Cipro twice a day for 3 days 01/06 completed Recorded 02/11/20 22 2:01PM by Chanell Myles, Office Visit; Refill Quantity : 0; Not Available Not Available Not Available oxybutyni n chloride daily 01/06 completed Recorded 02/11/20 22 2:56PM by Suman Shipman DO, Office Visit; Refill Quantity : 90; Tablet; Not Available Not Available Not Available fluconazo le now x 1 dose 09/27 completed Recorded 02/11/20 22 2:01PM by Chanell Myles, Office Visit; Refill Quantity : 0; Not Available Not Available Not Available meclizine as needed 01/06 completed 0; Recorded 02/11/20 22 2:01PM by Chanell Myles, Office Visit; Not Available Not Available Not Available Ambien at bedtime, as needed 01/[address] Almaguer; 0; Recorded 09/24/19 7:15AM by Laurie Hutchison, Office Visit; Not Available Not Available Not Available Hydrocodo ne W/Acetami nophen four times daily 01/06 completed Recorded 05/21/20 22 3:33PM by Suman Shipman DO, Refill Request; Refill Quantity : 0; Not Available Not Available Not Available levocetir izine 5 mg tablet TAKE 1 TABLET EVERY DAY 2024 active Not Available Not Available Not Avai lable levocetir izine daily 06/16 completed DM/sd; Recorded 07/15/19 11:33AM by Chanell Myles, Historic al Summary; Refill Quantity : 90; Tablet; Not Available Not Available Not Available desvenlaf axine succinate ER 50 mg tablet,ex tended release 24 hr TAKE 1 TABLET BY MOUTH ONCE DAILY 09/27 completed Not Available Not Available Not Available desvenlaf axine succinate ER 100 mg tablet,ex tended release 24 hr TAKE 1 TABLET BY MOUTH ONCE DAILY active Not Available Not Available No t Available desvenlaf axine daily 01/06 completed Recorded 02/11/20 22 2:01PM by Chanell Myles, Office Visit; Refill Quantity : 30; Tablet; Not Available Not Available Not Available Trelegy Ellipta 100 mcg-62.5 mcg-25 mcg powder for inhalatio n Inhale 1 puff every day by inhalati on route. 06/29 completed Not Available Not Available Not Available Ozempic 0.25 mg or 0.5 mg (2 mg/1.5 mL) subcutane ous pen injector 01/06 completed Not Available Not Available Not Available Ozempic once a week 01/06 completed Recorded 02/11/20 2:01PM by Chanell Myles, Office Visit; Refill Quantity : 0; Not Available Not Available Not Available Trelegy Ellipta 200 mcg-62.5 mcg-25 mcg powder for inhalatio n INHALE 1 PUFF ONCE DAILY active Not Available Not Available No t Available Paxlovid 300 mg (150 mg x 2)-100 mg tablets in a dose pack TAKE DIRECTED 02/22 completed Not Available Not Available Not Available Airsupra 90 mcg-80 mcg/actua tion HFA aerosol inhaler Inhale 2 inhalati ons every 4 hours by inhalati on route as needed for 30 days, for wheezing or shortnes s of breath. 2024 active Not Available Not Available Not Avai lable Zepbound 2.5 mg/0.5 mL subcutane ous pen injector Inject 2.5 mg by subcutan eous route for 28 days. 06/29 completed Not Available Not Available Not Available Vitals Date Recorded Body height Body mass index (BMI) Body weight Oxygen saturation Heart rate Respiratory rate Body temperature Systolic And Diastolic Provider Name and Address Organization Details Last Updated DateTime 5 167.64 cm 38.7 kg/m2 221539. 17 g 99 % 102 /min 18 /min 98.2 [degF] 130/68 mm[Hg] Jennifer Mccoy [facility] 5 14:08:31 Date Recorded Body height Body mass index (BMI) Body weight Oxygen saturation Heart rate Respiratory rate Body temperature Systolic And Diastolic Provider Name and Address Organization Details Last Updated DateTime 5 167.64 cm 38.8 kg/m2 763714. 97 g 96 % 79 /min 18 /min 98.2 [degF] 120/70 mm[Hg] Laxmi Connolly [facility] 5 16:40:47 Date Recorded Body height Body mass index (BMI) Body weight Oxygen saturation Heart rate Respiratory rate Systolic And Diastolic Provider Name and Address Organization Details Last Updated DateTime 5 167.64 cm 39.1 kg/m2 707724. 15 g 98 % 88 /min 18 /min 130/70 mm[Hg] Laxmi Connolly [facility] 5 15:51:43 Date Recorded Body height Body mass index (BMI) Body weight Oxygen saturation Heart rate Respiratory rate Systolic And Diastolic Provider Name and Address Organization Details Last Updated DateTime 5 167.64 cm 38.6 kg/m2 469482. 58 g 98 % 95 /min 18 /min 118/76 mm[Hg] KEVIN CORRIGAN [facility] 5 12:42:35 Social History None recorded. Functional Status None recorded. Mental Status None recorded. Family History Nothing Reported. Medical History No medical history recorded. Gynecological HistoryNo gynecological history recorded. Obstetrics History GPAL:G 0 P 0 0 0 0 Immunizations Vaccine Type Date Status Note Provider Nam e and Address Organization Details Recorded Time Td(adult) unspecified formulation 2 completed Not Available [facility] 12/20/2022 02:39:38 Influenza, split virus, trivalent, preservative 1 completed Not Available [facility] 12/20/2022 02:39:39 pneumococcal polysaccharide PPV23 6 completed Not Available [facility] 12/20/2022 02:39:39 Influenza, split virus, trivalent, preservative 3 completed Alicia etienne [facility] 12/30/2023 08:18:23 influenza, whole 3 completed Alicia etienne [facility] 12/30/2023 08:18:23 Hep A, adult 4 completed Alicia etienne [facility] 12/30/2023 08:18:23 Influenza, split virus, quadrivalent, PF 2 completed Alicia etienne, [facility] 12/30/2023 08:18:23 Influenza, split virus, quadrivalent, PF 3 completed Not Available [facility] 03/27/2025 12:17:50 zoster recombinant 4 completed Suman Shipman DO [address] [place] [address], [phone], [facility] 10/01/2023 08:20:52 zoster recombinant 4 completed Suman Shipman DO [address] [place] [address], [phone], [facility] 11/02/2023 19:06:37 Influenza, split virus, trivalent, PF 4 completed Suman Shipman [address], [phone], [facility] 03/08/2024 22:15:05 Past Encounters Encounter ID Performer Location Encounter Start Date Encounter Closed Date Diagnosis/Indication Diagnosis SNOMED-CT Code Diagnosis ICD10 Code Diagnosis IMO Codes Diagnosis Note [id number] MARLEN CRAIG [facility] ([facility]) [address] [place] [address] [id number] 10/03/2022 18:54:51 10/29/2022 22:52:28 Essential hypertension 41190016 I10 New onset hypertensi on with dizziness, palpitatio ns, weakness, and loss of bladder control. Patient encouraged to go to ED. Called report to ED triage. [id number] Suman Shipman DO [facility] ([facility]) [address] [place] [address] [id number] 10/06/2022 12:01:19 10/06/2022 18:27:31 Pituitary adenoma 194550470 D35.2 pt followed by Endocrinol hany at [facility] Essential hypertension 55831073 I10 will have pt start 1/2 tab of the 10mg amlodipine from the er. monitor bp closely. counseled on side effects, expectatio ns. f/u with me in 3 wks, sooner with problems. Morbid obesity 290530880 E66.01 I counseled pt on obesity. We discussed risks and ways to loose weight. Pt will work on diet, exercise. Chronic rhinosinusitis 133905102 J31.0 continue singulair and xyzol Degenerati on of lumbar intervertebral disc 28837761 M51.36 stable on nsaids and hydrocodon e. Chronic low back pain 27 4442397 M54.50 Chronic sa croiliac joint pain 974191619 M53.3 no recent flair. continue home exercises. Iron defic iency anemia 39971364 D50.9 hx of. will repeat labs next appt. Gastroesop hageal reflux disease 539890490 K21.9 continue omeprazole Urinary incontinence 165 626530 R32 continue oxybutynin and pelvic floor exercises. [id number] Suman Shipman DO [facility] ([facility]) [address] [place] [address] [id number] 5 10/28/2022 15:11:59 11/11/2022 12:02:00 Essential hypertension 35854024 I10 bp too low at times. will decrease valsartan down to 80mg po q am. and stay off the amlodipine .f/u 2 mts. .sooner with problems. Acute sinusitis 52023972 J01.90 allergic, continue zyrtec, singulair, and flonase, IM steroids today. counseled [id number] Suman Shipman DO [facility]) [address] [place] [address] [id number] 5 11/26/2022 12:45:45 11/26/2022 16:28:20 Chronic sacroiliac joint pain 776763361 M53.3 Acute flare. Will give SI joint injection today she agrees and she tolerated the procedure well. After detailed discussion on diagnosis and treatment options, pt expressed verbal desire to proceed today with procedure and expressed verbal understand ing of options, risks, procedure, and expectatio ns. injection given today as above. Pt tolerated the procedure well. Aftercare instructio ns with expectatio ns and precaution s were discussed. Displaceme nt of lumbar intervertebral disc without myelopathy 87691745 M51.26 Acute flare. Continue hydrocodon e and exercises. We will give 10-day course of steroid burst. Counseled [id number] Suman Shipman DO [facility] ([facility]) [address] [place] [address] [id number] 5 01/06/2023 14:41:22 01/06/2023 17:31:56 Overactive urinary bladder 237004584 N32.81 continue oxybutynin . Heat exhaustion 06052256 T67.5XXD counseled on prevention and hydration. pt to stay out of the heat through the fall. Displaceme nt of lumbar intervertebral disc without myelopathy 80570526 M51.26 Continue hydrocodon e and exercises. Chronic constipation 236 682370 K59.09 Counseled patient on diet, fluids, fiber, exercise. Patient to take daily stool softener and increase to titrate to 1 bowel movement that is soft daily. [id number] Suman Shipman DO [facility] ([facility]) [address] [place] [address] [id number] 5 08/11/2023 17:13:37 08/11/2023 18:21:26 Essential hypertension 52047621 I10 Stable, continue Valsartan. Chronic low back pain 27 3408310 M54.50 stable, continue Hydrocodon e as needed. Pituitary adenoma 251234 000 D35.2 pt followed by Endocrinol hany at [facility] Adult heal th examination 046396778 Z00.00 Pt to return for fasting lab and wellness. Obesity 401579520 E66.9 Counseled on diet, exercise. [id number] Suman Shipman DO [facility] ([facility]) [address] [place] [address] [id number] 5 09/28/2023 14:47:10 09/28/2023 17:16:35 Displacement of lumbar intervertebral disc without myelopathy 74651157 M51.26 Continue hydrocodon e and exercises. Essential hypertension 07011995 I10 Stable, continue Valsartan. Active or passive immunization 396540255 Z23 I counseled pt on vaccinatio ns. they are willing to accept the Shingles vaccinatio n. given today, they will return in 8 wks for the 2nd/last booster. Degenerati on of lumbar intervertebral disc 69041974 M51.36 stable on nsaids and hydrocodon e. Iron defic iency anemia 02146406 D50.9 hx of. Most recent labs show resolution . Counseled. [id number] Suman Shipman DO [facility] ([facility]) [address] [place] [address] [id number] 5 11/02/2023 14:54:12 11/02/2023 17:53:13 Active or passive immunization 905454824 Z23 I counseled pt on vaccinatio ns. they are willing to accept the Shingles vaccinatio n. given today, they will return in 8 wks for the 2nd/last booster. [id number] Suman Shipman DO [facility] ([facility]) [address] [place] [address] [id number] 5 11/30/2023 13:34:03 12/01/2023 09:11:21 Chronic constipation 861011032 K59.09 Worsening. Will get x-ray. Counseled on hydration, fiber, stool softeners. She has done colon cleansing twice without much improvemen t. Morbid obesity 854418966 E66.01 I counseled pt on obesity. We discussed risks and ways to loose weight. Pt will work on diet, exercise.W e will also try Ozempic bound. Counseled on medication , side effects, expectatio ns. [id number] Suman Shipman DO [facility] ([facility]) [address] [place] [address] [id number] 5 01/14/2024 10:01:08 01/14/2024 11:22:34 Fever 242363449 R50.9 Covid+. Counseled Prednisone 40mg for 7 days, Paxlovid 1 dosepak BID for 5 days, dispense 1 dosepak, rest, fluids, ok to continue Ibuprofen, immune boost. Inhaler to use as needed. Counseled avoid others until she is improved. Ingrowing nail of toe of left foot [id number] 8562314 L60.0 Cephalexin TID for 5 days. [id number] Suman Shipman DO [facility] ([facility]) [address] [place] [address] [id number] 5 02/23/2024 10:22:12 02/23/2024 15:52:14 Dysuria 90416297 R30.0 02/23/24- UTI, counseled Sweta BELL today, she confirms she has had it in the past and it worked well for her, lab to assess renal function d/t history. [id number] Suman Shipman DO [facility] ([facility]) [address] [place] [address] [id number] 5 03/02/2024 15:45:40 03/11/2024 04:09:11 Active or passive immunization 080985836 Z23 I counseled pt on vaccinatio ns. they are willing to accept the Shingles vaccinatio n. given today, they will return in 8 wks for the 2nd/last booster. [id number] Garrison Hess MD [facility] ([facility]) [address] [place] [address] [id number] 5 06/02/2024 14:02:00 06/07/2024 11:55:37 Exacerbation of intermittent asthma 034454495 J45.21 Concerned that the patient has developed an exacerbati on of her asthma. Will start steroids and antibiotic s. Encouraged the patient to use albuterol every 4 hours as needed. Recommend following up with PCP to discuss changes to asthma treatment if needed. [id number] Suman Shipman DO [facility] ([facility]) [address] [place] [address] [id number] 5 06/06/2024 16:07:48 06/10/2024 13:53:14 Screening for osteoporosis 132781527 Z13.820 I counseled on bone health. need for exercise, calcium and vit D. will get screening bone scan. Screening for malignant neoplasm of colon 076881905 Z12.11 I counseled pt on colon cancer in detail. risks, preventati ve options, and discussed mutiple screening options. Offered colon cancer screenings . Pt declines colonoscop y, but is willing to proceed with cologuard screening. I counseled pt on this test. Ordered. Moderate p ersistent asthma 634654107 J45.40 possible acute flair, will add airsupra and trelegy, Return to office with no improvemen t or any problems. Go to ER with severe worsening or severe problems. Essential hypertension 91174686 I10 Stable, continue Valsartan. Advance care planning 71 2215647 Z71.89 I discussed advanced care planning with patient in detail today. We spent 16 minutes discussing this. All questions were addressed. They will work on this at home.. [id number] Suman Shipman DO [facility] ([facility]) [address] [place] [address] [id number] 5 06/29/2024 15:13:27 07/06/2024 09:21:04 Moderate persistent asthma 079508782 J45.40 possible acute flair, will add airsupra and trelegy, Return to office with no improvemen t or any problems. Go to ER with severe worsening or severe problems. Chronic anemia 506368153 D64.9 Stable, monitoring . Chronic low back pain 27 5766518 M54.50 stable, continue Hydrocodon e as needed. Depressive disorder 3548 9007 F32.A F33.1 Mood stable. continue pristiq Essential hypertension 40883515 I10 Stable, continue Valsartan. Gastroesop hageal reflux disease 690847968 K21.9 continue omeprazole Overactive urinary bladder 867768957 N32.81 continue oxybutynin . Pituitary adenoma 014256 000 D35.2 stable and assymptoma tic. pt followed by Endocrinol hany at [facility] Restless l egs syndrome 29186058 G25.81 stable. Obesity 259785228 E66.01 I counseled pt on obesity. We discussed risks and ways to loose weight. Pt will work on diet, exercise.W e will also try Ozempic bound. Counseled on medication , side effects, expectatio ns. [id number] Suamn Shipman DO [facility] ([facility]) [address] [place] [address] [id number] 5 03/27/2025 12:17:20 03/28/2025 15:06:58 Pneumonia 204156241 J18.9 7724861658 I counseled on concern for pneumonia vs bronchitis , treatment options, expectatio ns and reasons to go to ER or seek urgent medical attention. We will start antibiotic s and steroids today due to severity of illness and/or increased risks for pt.We will consider inhaler and chest xray if not improving. . Health Concerns Section Related Observation LastModified by Organization Detai ls LastModified Time None Recorded Concern Status LastModified by Organization Details LastModified Time None Recorded Advance Directives Directive None Recorded Payers Insurance Date Sequence Insurance Name Policy Number Policy Pablo Covered Member ID Pablo Member ID Guarantor Name 03/27/2025 1 [employer] (MEDICARE REPLACEMENT/ ADVANTAGE - PPO) Angy Quintero [id number] Angy Quintero Notes Date Note Type Note Provider Name and Address Organization Details Recorded Time 5 text/html CoughReported by Patient FatigueReported by PatientROS as noted in the HPI walk in patientpatient is here today for chest congestion, fatigue, shortness of breath, and cough that started over a week ago Garrison Hess MD [address] [place] [address], [phone], [facility], [facility] 06/05/2024 07:11:30 5 text/html Medicare Annual Wellness VisitReported by PatientSocial/Behavioral HistoryFor physical activity, patient reportsdoes not exercise on a regular basis,decreased physical activity,poor physical condition, anddeconditioned due to sedentary lifestyle. For fracture risk, patient reportsno history of fractures,no recent explained fracture,no sudden unexplained fractures, andno previous musculoskeletal injuries.Mental Status:For depression risk, patient reportsnever feels sad, empty, or tearful,no loss of interest in activities,no significant changes in weight,no sleep disturbances or insomnia,no agitation,no loss of energy,no feelings of worthlessness or guilt,no thoughts of suicide,no history of depression, andno history of mood disorders. For orientation, patient reportsno disorientation to time,no disorientation to date, andno disorientation to place. For concentration and memory, patient reportsno decreased concentrating ability,no memory lapses or loss, anddoes not forget words. For speech/motor difficulties, patient reportsno speech difficulties,no difficulty expressing formulated concepts,no difficulty with fine manipulative tasks,no difficulty writing/copying,no slowed reaction time, anddoes not knock things over when trying to pick them up.Functional AbilityFor hearing, patient reportsno loss of hearing. For vision, patient reportsno vision problems(wears corrective lenses). For activities of daily living, patient reportsable to bathe with limited or no assistance,able to contol urination and bowels,able to dress with limited or no assistance,able to feed self with limited or no assistance,able to get out of chair or bed with limited or no assistance,able to groom with limited or no assistance, andable to toilet with limited or no assistance. For instrumental activities of daily living, patient reportsable to do house work with limited or no assistance,able to grocery shop with limited or no assistance,able to manage medications with limited or no assistance,able to manage money with limited or no assistance,able to prepare meals with limited or no assistance, andable to use the phone with limited or no assistance. For falls risk assessment, patient reportsno frequent falls while walking,no fall in the past year,no fall since last visit, andno dizziness/vertigo. For home safety, patient reportsno unsafe bina hazzards,no unsafe stairs,no unsafe gas appliances,working smoke/co detectors,wears protective head gear for biking/high velocity,use of seatbelts,practicing 'safer sex',no vision or hearing loss while driving,no fire arms,has hand bars in the bathroom/shower, andgood lighting in the home.ROS as noted in the HPI Pt presents for recheck, [place] f/u and [facility] visit [place] visit on 06/02/24:walk in patientpatient is here today for chest congestion, fatigue, shortness of breath, and cough that started over a week agoPlan at visit on1. Exacerbation of intermittent asthma -Concerned that the patient has developed an exacerbation of her asthma. Will start steroids and antibiotics. Encouraged the patient to use albuterol every 4 hours as needed. Recommend following up with PCP to discuss changes to asthma treatment if needed.J45.21: Mild intermittent asthma with (acute) exacerbationprednisone 20 mg tablet - Take 2 tablet(s) every day by oral route for 7 days. Qty: (14) tablet Refills: 0 Pharmacy: [email or web address] 250 mg tablet - TAKE 2 TABLETS (500 MG) BY ORAL ROUTE ONCE DAILY FOR 1 DAY THEN 1 TABLET (250 MG) BY ORAL ROUTE ONCE DAILY FOR 4 DAYS Qty: (6) tablet Refills: 0 [email or web address] She feels better than she did when [place] went [place] but she still does not feel that her cough has resolvedShe has been taking otc meds along with her prescriptions and still has cough/congestion and her body is sore from coughing she continued with low grade fever and had low grade temp last nightShe finished her abt tx and has 1 day left of the prednisone Suman Shipman, DO [address] [place] [address], [id number], [facility] 06/09/2024 17:43:24 5 text/html ROS as noted in the HPI Pt presents for recheck on chronic conditions, asthma and CCA visit She wants recheck on recent pneumonia She c/o pain behind her sternum that is an achy feeling She did not start the Mounjaro d/t too expensive She needs rx sent for Airpra for 30 day supply instead of 90 day and the insurance will cover med. She used Breztri samples, did not use the Trelegy and did not receive samples of medShe feels the Breztri has helped She states that she had her Mammogram in Jan 2024 She has a letter from insurance re the cologuard not covered and it being checked to see why there is an issue Suman Shipman, DO [address] [place] [address], [phone], [facility] 07/06/2024 07:52:37 5 text/html ROS as noted in the HPI Patient presents today with a cough, chest congestion, and fever that began three days ago.felt like it started in her head/sinus, then moved down to her troat and down into chest. Additionally, the patient reports chest pain that started 2-3 weeks ago, described as a single episode radiating to the back, with occasional fluttering sensations. This happened once, lasted a few miinute resolved. no return of symptoms. Suman Shipman, [address], [phone], [facility], Javed 03/27/2025 13:48:14 OBGyn Episode No OBEpisode recorded.
--- OUTSIDE RECORDS SUMMARY | 2025-05-17 22:02 | XMS_ITS | Continuity of Care Document ---
Author Organization ROHIT Part[facility], L[facility]LTylerCTyler, [facility] ([facility]) Address [address] [place] [address] Care Team Providers Care Curriculum And Instruction Specialist Name Role Phone UMBERTO SUMAN Primary Care Provider Assessment Encounter Date Assessment Date Assessment LastModified by Organization Details LastModified Time 03/27/2025 03/27/2025 pt to go to ER with any significant chest pain. [email or web address] Not available 03/27/2025 13:48:10 Plan of Treatment Reminders Order Date Submit Date Provider Last Modified By Organization Details Last Modified Time Details Appointments None recorded. Lab None recorded. Referral None recorded. Procedures None recorded. Surgeries None recorded. Imaging None recorded. Medication Orders prednisone 20 mg tablet 2024 [facility], [address], [place], [address], 5 05:01:36 amoxicillin 875 mg-potassiu m clavulanate 125 mg tablet 2024 [facility], [address], [place], [address], 5 05:01:12 albuterol sulfate HFA 90 mcg/actuati on aerosol inhaler 2024 025 [facility], [address], [place], [address], 5 13:17:32 Patient TargetsNo targets recorded. Patient InstructionsNo instructions recorded. Reason for Referral None Reported. Problems Name Problem SNOMED Code Status Onset Date Resolution Date Notes Provider Name and Address Organization Details Recorded Time Viral hepatitis, type A 27355221 Active 2021 Hepatitis A [facility] 15:27:08 Depressive disorder 21095188 Active 2021 Depression [facility] 5 15:27:08 Restless legs syndrome 54264321 Active 2021 Restless Leg Syndrome Laxmi Connolly [facility] 5 15:27:08 Vitamin B deficiency NOS Active 2021 Vitamin B-12 Deficiency Laxmi Connolly [facility] 5 15:27:08 Chronic anemia 038749286 Active 2021 Chronic Anemia Laxmi Connolly [facility] 5 15:27:08 Asthma 140686496 Active 2021 Asthma Laxmi Connolly [facility] 5 15:27:08 Vitamin D deficiency 83111529 Active 2021 Vitamin D deficiency Laxmi Connolly [facility] 5 15:27:08 Essential hypertensi on 22204546 Active 2022 Laxmi Connolly [facility] 5 15:27:08 Pituitary adenoma 604268107 Active 2022 Laxmi Connolly [facility] 5 15:27:08 Chronic rhinosinus itis 860781855 Active 2022 Laxmi etienne, [facility] 5 15:27:08 Degenerati on of lumbar interverte bral disc 63598020 Active 2022 Laxmi etienne, [facility] 5 15:27:08 Chronic low back pain 455110345 Active 2022 [facility] 5 15:27:08 Chronic sacroiliac joint pain 721679225 Active 2022 [facility] 5 15:27:08 Iron deficiency anemia 07195101 Active 2022 [facility] 5 15:27:08 Gastroesop hageal reflux disease 791054143 Active 2022 Laxmi Connolly [facility] 5 15:27:08 Displaceme nt of lumbar interverte bral disc without myelopathy 56741384 Active 2022 [facility] 5 15:27:08 Chronic constipati on 537585670 Active 2022 Laxmi etienne [facility] 5 15:27:08 Overactive urinary bladder 704648831 Active 2022 Laxmi etienne [facility] 5 15:27:08 Insomnia 553361142 Active 2023 [facility] 5 15:27:08 Morbid obesity 263111072 Active 2023 Laxmi etienne [facility] 5 15:27:08 Moderate persistent asthma 621446296 Active 2024 [facility] 5 15:27:08 Pneumonia 929408807 Active 2024 Suman Garcia [address], [address], [facility] 13:16:20 Problem Notes None recorded. Procedures Surgical History Date Name Laterality Status Provider Name and Address Organization Details Recorded Time 08/11/19 24 Joint Inj Kenalog- Shoulder, Hip, Knee completed Gabriele Paulino [facility] 08/11/2023 18:04:26 11/27/19 23 Joint Inj Kenalog- Shoulder, Hip, Knee completed Suman Garcia [address], [address], [facility] 11/26/2022 13:08:53 hernia repair completed [facility] 06/02/2024 14:06:18 Gallbladder Surgery completed [facility] 06/02/2024 14:06:26 Tubal Ligation completed [facility] 06/02/2024 14:06:31 Total Hysterectomy completed [facility] 06/02/2024 14:06:36 section completed [facility] 06/02/2024 14:07:00 Imaging Results None recorded. Procedure Notes None recorded. Medical Equipment None Reported. Allergies Allergen ID Allergen Name Allergen Category Reaction Reaction Severity Criticality Documentation Date Start Date Code Code System Note Provider Name and Address Organization Details Recorded Time 2944 amoxicill in trihydrat e medicatio n Not available Not available Not available 10/03/2022 [address] [facility], [facility] 3 19:05:13 2945 tetracycl ine medicatio n hives itching swelling mild mild moderate low 10/03/2022 44893 RxNorm Alicia Jeffsander [facility] 4 08:17:28 2946 Ozempic medicatio n Not available Not available Not available 10/03/202219903 [address] [facility], [facility] 3 19:05:30 2947 Bactrim medicatio n Not available Not available Not available 10/03/2022 43799 9 RxNorm KAELA YOON [facility] 3 19:05:36 2948 codeine medicatio n other moderate high 10/03/2022 2670 RxNorm becom es viole nt Alicia Pablo [facility] 4 08:17:05 90324 Abilify medicatio n Not available Not available Not available 06/02/2024 98297 3 RxNorm Jennifer Mccoy [facility] 5 14:05:47 81671 amlodipin e medicatio n Not available Not available Not available 06/02/2024 24274 RxNorm Jennifer Mccoy [facility] 5 14:05:57 34255 Trelegy medicatio n hives Not available Not available 07/06/20242024 45900 40 RxNorm KEVIN CORRIGAN [facility] 5 10:10:45 Medications Name Sig Start Date [...] completed Recorded 02/11/20 22 2:56PM by Suman Garcia DO, Office Visit; Refill Quantity : 90; [...] completed Recorded 05/21/20 22 3:33PM by Suman Garcia DO, Refill Request; Refill Quantity : 0; [...] Available No t Available desvenlaf axine daily 01/063 completed Recorded 02/11/20 22 2:01PM by Chanell [...] once a week 01/06 completed Recorded 02/11/20 22 2:01PM by [...] Updated DateTime 5 167.64 cm 38.6 kg/m2 926315. 58 g 98 % 95 /min 18 /min 118/76 mm[Hg] KEVIN [facility], [facility] 5 12:42:35 Social History None recorded. Functional Status None recorded. Mental Status None recorded. Family History Nothing Reported. Medical History No medical history recorded. Gynecological HistoryNo gynecological history recorded. Obstetrics History GPAL:G 0 P 0 0 0 0 Immunizations Vaccine Type Date Status Note Provider Nam e and Address Organization Details Recorded Time Td(adult) unspecified formulation 2 completed Not Available [facility] 12/20/2022 02:39:38 Influenza, split virus, trivalent, preservative 1 completed Not Available [facility] 12/20/2022 02:39:39 pneumococcal polysaccharide PPV23 6 completed Not Available [facility] 12/20/2022 02:39:39 Influenza, split virus, trivalent, preservative 3 completed Alicia etienne, [facility] 12/30/2023 08:18:23 influenza, whole 3 completed Alicia etienne, [facility] 12/30/2023 08:18:23 Hep A, adult 4 completed Alicia etienne, [facility] 12/30/2023 08:18:23 Influenza, split virus, quadrivalent, PF 2 completed Alicia etienne, [facility] 12/30/2023 08:18:23 Influenza, split virus, quadrivalent, PF 3 completed Not Available [facility] 03/27/2025 12:17:50 zoster recombinant 4 completed Suman Garcia DO [address] [place] [address], [phone], [facility] 10/01/2023 08:20:52 zoster recombinant 4 completed Suman Garcia DO [address] [place] [address], [phone], [facility] 11/02/2023 19:06:37 Influenza, split virus, trivalent, PF 4 completed Suman Garcia DO [address] [place], [address], [facility] 03/08/2024 22:15:05 Past Encounters Encounter ID Performer Location Encounter Start Date Encounter Closed Date Diagnosis/Indication Diagnosis SNOMED-CT Code Diagnosis ICD10 Code Diagnosis IMO Codes Diagnosis Note [id number] Suman Garcia DO [facility] ([facility]) [address] [place] [address] 03/27/2025 12:17:20 03/28/2025 15:06:58 Pneumonia 870091702 J18.9 [id number] I counseled on concern for pneumonia vs [...] by Organization Details LastModified Time None Recorded Payers Encounter Date Sequence Insurance Name Policy Number Policy Pablo Covered Member ID Pablo Member ID Guarantor Name 03/27/2025 1 [employer] (MEDICARE REPLACEMENT/ ADVANTAGE - PPO) nAgy Quintero [id number] Angy Quintero Notes Date Note Type Note Provider Name and Address Organization Details Recorded Time 03/27/2025 text/html ROS as noted in the HPI [...] miinute resolved. no return of symptoms. Suman Garcia DO [address] [place], [address], [facility] 03/27/2025 13:48:14 OBGyn Episode No OBEpisode recorded.
[2025-05-17 22:29] VITALS: BP 130/83; PULSE 111; RESP 18; TEMP 36.8; O2SAT 96; BMI 38.7
--- NOTE | 2025-05-17 22:37 | XRR_ITS ---
PROCEDURE INFORMATION: Exam: XR Left Tibia and Fibula Exam date and time: 05/17/2025 10:36 PM Age: 65 years old Clinical indication: Injury or trauma; Fall; Blunt trauma; Lower leg; Left; Additional info: Fall leg pain TECHNIQUE: Imaging protocol: Radiologic exam of the left tibia and fibula. Views: 2 views. COMPARISON: CR (LOW EXM, ) 05/17/2025 10:34 PM FINDINGS: Bones/joints: Normal. Soft tissues: Severe anterior subcutaneous bruising. Consider CT scan if there is concern for active bleed. XR/XR tibia fibula LT 2V [id number] IMPRESSION: Severe anterior subcutaneous bruising. Consider CT scan if there is concern for active bleed.
[2025-05-17 23:27] VITALS: BP 119/75; PULSE 76; O2SAT 99
--- NOTE | 2025-05-17 23:35 | W.ED.EXTPRO ---
HPI - Extremity Problem General: Chief complaint: Extremity Injury, Lower Stated complaint: fell down stairs RT Ft pain History of Present Illness: Patient is a 65-year-old female that fell down stairs, with her left leg bent back, and her right foot. Context: Just prior to arrival, patient was walking down the stairs, when she fell down the stairs, injuring her left tibial plateau, and her right dorsum of her foot. She states that she has a clots, and falls often. She also complains of right elbow pain that she did not initially note. No other concern. Patient took her own hydrocodone 10/325 prior to arrival. Associated symptoms: Reports rash; Deny chest pain or fever(s) Related Data Home Medications ?Medication ?Instructions ?Recorded ?Confirmed hydrocodone 10 mg-acetaminophen 1 tab PO QID PRN Pain 10/29/19 10/26/24 325 mg tablet zolpidem 5 mg tablet (Ambien) 5 mg PO BEDTIME PRN Sleep 10/29/19 10/26/24 clonazepam 0.5 mg tablet 0.5 mg PO DAILY PRN Anxiety 10/02/21 10/26/24 desvenlafaxine succinate 100 mg 100 mg PO BEDTIME 10/02/21 10/26/24 tablet,extended release 24 hr (Pristiq) fluticasone propionate 50 2 spray intranasal DAILY PRN 10/02/21 10/26/24 mcg/actuation nasal Allergy Symptoms spray,suspension levocetirizine 5 mg tablet 5 mg PO BEDTIME 10/02/21 10/26/24 meclizine 25 mg tablet 25 mg PO QID PRN Dizziness 10/02/21 10/26/24 montelukast 10 mg tablet 10 mg PO DAILY 10/02/21 10/26/24 (Singulair) oxybutynin chloride 5 mg 5 mg PO DAILY 10/02/21 10/26/24 tablet,extended release 24 hr tizanidine 2 mg capsule 2 mg PO Q8H PRN Muscle Spasm 10/02/21 10/26/24 Calcium Gummies 2 tab PO BEDTIME 01/22/22 10/26/24 qnqnszd-whlxlwjheoiho-[id number] 250 2 tab PO Q6H PRN Migraine Headache 01/22/22 10/26/24 mg-250 mg-65 mg tablet (Excedrin Migraine) celecoxib 200 mg capsule 200 mg PO BEDTIME 01/22/22 10/26/24 multivitamin 1 tab PO DAILY 01/22/22 10/26/24 omeprazole 40 mg capsule,delayed 40 mg PO BEDTIME 01/22/22 10/26/24 release Previous Rx's ?Medication ?Instructions ?Recorded estradiol 0.01% (0.1 mg/gram) 1 appful vaginal DAILY #42.5 grams 01/01/22 vaginal cream (Estrace) docusate sodium 100 mg capsule 100 mg PO BID #60 caps 03/05/22 hydrocodone 10 mg-acetaminophen 1 tab PO QID PRN Pain #30 tabs 03/05/22 325 mg tablet metronidazole 500 mg tablet 500 mg PO BID #14 tabs 03/27/22 amlodipine 10 mg tablet 10 mg PO DAILY #30 tabs 10/03/22 Allergies Allergy/AdvReac Type Severity Reaction Status Date / Time amoxicillin Allergy Severe ADR-Itching Verified 05/17/25 22:33 aripiprazole (From Abilify) Allergy Severe feels like Verified 05/17/25 22:33 shes going crazy codeine Allergy ADR-Irritab Verified 05/17/25 22:33 le semaglutide (From Ozempic) Allergy ADR-Diarrhe Verified 05/17/25 22:33 a sulfamethoxazole (From Allergy ALGY-Hives Verified 05/17/25 22:33 Bactrim) tetracycline Allergy Unknown Verified 05/17/25 22:33 trimethoprim (From Bactrim) Allergy ALGY-Hives Verified 05/17/25 22:33 Review of Systems General: Reports: 10 or more systems reviewed and unremarkable except in HPI and below Const: Denies: fever(s) or chills Eyes: Denies: change in vision or blurry vision ENMT: Denies: throat pain, mouth pain, nasal discharge or nasal congestion Card: Denies: chest pain or palpitations Resp: Denies: dyspnea or non-productive cough GI: Denies: abdominal pain, nausea or vomiting : Denies: flank pain or urinary urgency Musc: Reports: extremity pain, extremity swelling, joint pain, joint swelling, joint redness, joint stiffness and limited range of motion; Denies: neck pain, back pain, joint warmth or muscle cramps Skin/Breast: Reports: rash, erythema and changes in skin color; Denies: pruritus Neuro: Denies: headache(s) or numbness in extremities Psych: Denies: anxiety or depression PFSH ED PFSH: Medical History (Updated 05/18/25 @ 00:54 by ASHU Ireland) UTI (urinary tract infection) -UA indicative of infection -urine cx: no growth -already on Ceftriaxone Hypertension -VSS; continue to monitor -ACEi on hold due to continued renal impairment Metabolic acidosis, increased anion gap -off sodium bicarbonate; improved -continue to monitor chemistry Oliguria Renal failure -appears to have at least some degree of CKD, no baseline labs to compare -significant acute renal impairment, oliguria likely multifactorial due to profuse diarrhea secondary to Salmonella enteritis, subsequent dehydration, CULLEN inhibitor use, poor oral intake -Continue to closely monitor renal function and urine output. Renal function is improving -Gutiérrez catheter discontinued and able to void independently without difficulty -Avoid nephrotoxins, renally dose meds -Nephrology consult appreciated -Continue to hold PPI -Renal ultrasound unremarkable -Hepatitis panel negative, AM cortisol wnl; serum immunofixation normal, negative TARYN, SS-A and SS-B antibodies negative, anti-dsDNA indeterminate -Continue IVF Salmonella enteritis -stool studies positive for Salmonella enteritis with evidence of diffuse colitis on imaging -on ceftriaxone (day 5/7); would continue this as oral intake has been mediocre; will d/c on ciprofloxacin for dual coverage, to complete treatment course -blood cx: negative Colitis -As noted above -stool studies otherwise negative including C.difficile History of menorrhagia Iron deficiency Depression Asthma Surgical History History of back surgery History of cholecystectomy H/O: hysterectomy Tubal ligation status S/P cholecystectomy H/O hernia repair Family History Other Adopted Social History Smoking and tobacco/nicotine status: unknown if used tobacco/nicotine Substance/Drug Use: never Physical Exam Const: COMMON NORMALS: no acute distress, average body habitus, patient oriented x3, no limitations, healthy appearing, alert and well nourished HENMT: COMMON NORMALS: not normocephalic and head/scalp not atraumatic HEAD & SCALP: not normocephalic and not atraumatic Neck/C-Spine: COMMON NORMALS: full ROM, no lymphadenopathy, supple and no meningeal signs Lymph: LYMPHATIC: no lymphadenopathy noted Chest: COMMONS NORMALS: normal inspection of the chest and normal palpation of entire chest wall Resp: COMMON NORMALS: normal respiratory effort, No retractions and No use of accessory muscles Cardio: COMMON NORMALS: regular rate and regular rhythm RATE: regular rate RHYTHM: regular rhythm GI: COMMON NORMALS: Normal to inspection, nondistended, normoactive bowel sounds present, Soft to palpation, non-tender and No hepatosplenomegaly present PALPATION: Yes Soft to palpation and Yes No hepatosplenomegaly present : COMMON NORMALS: Yes no CVA tenderness BLADDER/KIDNEY EXAM: Yes no CVA tenderness Back/Pelvis: COMMON NORMALS: no CVA tenderness and thoracic and lumbar spine normal to inspection Extremity: COMMON NORMALS: normal to inspection, full ROM and capillary refill normal Neuro: COMMON NORMALS: patient oriented x3 SENSORIUM/ORIENTATION: Yes alert MENINGEAL SIGNS: Yes no meningeal signs Psych: COMMON NORMALS: mental status grossly normal, cooperative and speech normal ATTITUDE: Yes bizarre and Yes agitated ACTIVITY/MOTOR BEHAVIOR: Yes psychomotor agitation, Yes fidgeting and Yes disorganized behavior SPEECH: Yes normal speech THOUGHT PROCESS: disorganized (Apparently baseline) Course Reevaluation(s): Reevaluation #1: Improved. Has full movement of left leg. Still has pain on fifth metatarsal midfoot Vital Signs: Vital signs: Vital Signs Temperature 98.2 F 05/17/25 22:29 Pulse Rate 84 05/18/25 00:35 Respiratory Rate 18 05/17/25 22:29 Blood Pressure 118/75 05/18/25 00:35 Pulse Oximetry 99 05/18/25 00:35 Oxygen Delivery Me thod Room Air 05/17/25 22:29 MDM - Extremity (Nontraumatic) Medical Decision Making Patient is a 65-year-old female presented to the ED due to fall downstairs. She has complaints of left distal medial knee pain, right dorsum of her foot pain, and right elbow pain. She has bizarre behavior during exam, with lipsmacking, apparently this is patient's normal. X-ray of her left leg as well as exam is benign other than abrasion, and large contusion. Her right dorsum of her foot shows ecchymosis, and has some tenderness. Right elbow x-rays pending. Right midfoot base of metatarsal with nondisplaced fracture. Placed on hard shoe. Case management to make referral to Dr. Boyd. All patient's questions answered to her satisfaction Medical Records I reviewed the patient's medical records. Lab Data Radiology Impressions Tibia/Fibula X-Ray 05/17/25 22:37 IMPRESSION: Severe anterior subcutaneous bruising. Consider CT scan if there is concern for active bleed. Elbow X-Ray 05/17/25 23:37 IMPRESSION: No acute findings. All radiology interpretation(s) finalized by discharge Discharge Plan Discharge Patient Disposition: Home Clinical Impression: Closed fracture of base of fifth metatarsal bone of right foot, Contusion of left tibia Condition: Stable Prescriptions: No Action desvenlafaxine succinate [Pristiq] 100 mg tablet extended release 24 hr 100 mg PO BEDTIME levocetirizine 5 mg tablet 5 mg PO BEDTIME clonazepam 0.5 mg tablet 0.5 mg PO DAILY PRN (Reason: Anxiety) meclizine 25 mg tablet 25 mg PO QID PRN (Reason: Dizziness) oxybutynin chloride 5 mg tablet extended release 24hr 5 mg PO DAILY tizanidine 2 mg capsule 2 mg PO Q8H PRN (Reason: Muscle Spasm) montelukast [Singulair] 10 mg tablet 10 mg PO DAILY fluticasone propionate 50 mcg/actuation spray,suspension 2 spray intranasal DAILY PRN (Reason: Allergy Symptoms) Rx Instructions: administer into each nostril estradiol [Estrace] 0.01 % (0.1 mg/gram) cream 1 appful vaginal DAILY Qty: 42.5 2RF Rx Instructions: for 14 days, then twice weekly after that metronidazole 500 mg tablet 500 mg PO BID Qty: 14 0RF hydrocodone-acetaminophen 10-325 mg tablet 1 tab PO QID PRN (Reason: Pain) zolpidem [Ambien] 5 mg tablet 5 mg PO BEDTIME PRN (Reason: Sleep) hydrocodone-acetaminophen 10-325 mg Tablet 1 tab PO QID PRN (Reason: Pain) Qty: 30 0RF docusate sodium 100 mg Capsule 100 mg PO BID Qty: 60 0RF multivitamin Tablet 1 tab PO DAILY celecoxib 200 mg capsule 200 mg PO BEDTIME omeprazole 40 mg capsule,delayed release(DR/EC) 40 mg PO BEDTIME Calcium Gummies 2 tab PO BEDTIME Excedrin Migraine 250-250-65 mg Tablet 2 tab PO Q6H PRN (Reason: Migraine Headache) amlodipine 10 mg tablet 10 mg PO DAILY Qty: 30 0RF Discharge Orders: Discharge ED (Routine); Ordered 05/18/25 Ordered By: Yeni Paula Referrals: Grzegorz Garcia DO [Primary Care Provider, Family Practice] Benito Boyd DPM [Physician, Podiatry] Discharge Diet: Usual diet Discharge Activity: Use walker/crutches as instructed Patient Instructions: Contusion, Fractures - Metatarsal, Patient Portal & Tu Instructions Activity Restrictions/Additional Instructions: - Wear your hard shoe at all times on your right foot - Ice and elevation is recommended. I would also ice and elevate your left medial leg - Tylenol and ibuprofen for pain - I made a referral to Dr. Boyd, the department store manager for your fracture - Use a safety device for gait safety such as a cane or walker - Return to ED if you have sensation changes, fever that greater than 100.4 ?F - Wound care: Arnica topical, Tre Ensure that comes in a powder form you mix with water Thank you for choosing [facility] for your healthcare needs today. You have been screened and evaluated and felt safe for discharge. Health conditions do change or evolve sometimes and as such it is important that you follow up with your Primary Doctor to be re checked, 3-5 days is a general good time frame for follow up. 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
--- NOTE | 2025-05-17 23:37 | XRR_ITS ---
PROCEDURE INFORMATION: Exam: XR Right Elbow Exam date and time: 05/17/2025 11:37 PM Age: 65 years old Clinical indication: Pain; Elbow; Right; Additional info: Injury due to fall down stairs TECHNIQUE: Imaging protocol: Radiologic exam of the right elbow. Views: 3 or more views. COMPARISON: No relevant prior studies available. FINDINGS: Bones/joints: Normal. Soft tissues: Normal. XR/XR elbow RT min 3V* [id number] IMPRESSION: No acute findings.
[2025-05-18 00:35] VITALS: BP 118/75; PULSE 84; O2SAT 99
[2025-05-18 01:30] VITALS: BP 110/72; PULSE 87; O2SAT 98
--- NOTE | 2025-05-18 01:32 | PC.NURSE ---
Pt discharge instructions provided to pt by PA and nurse. Denied further questions. Pt placed in walking shoes, abrasions wrapped and cleaned. Pt states she has walker to use at home.
== END 2025-05-18 01:27 | disposition home or self-care (01) ==
PROVIDERS: Emergency Provider Physician Assistant; PCP Electrodiagnostic Medicine
DX: S92.354A Nondisplaced fracture of fifth metatarsal bone, right foot, initial encounter for closed fracture (principal); W10.9XXA Fall (on) (from) unspecified stairs and steps, initial encounter; I10 Essential (primary) hypertension
CPT/HCPCS: 73080; 73590; 73630; 99284; J9999

== ENCOUNTER 2025-05-22 09:53 | Outpatient (CLI) | payer MEDICARE, SELFPAY ==
--- NOTE | 2025-05-22 09:59 | CT_ITS ---
WS: [id number] CT LEFT LOWER EXTREMITY, WITH CONTRAST HISTORY: LEFT leg swelling after trauma. Technique: All CT scans at [facility] use at least one of these dose optimization techniques: automated exposure control; mA and/or kV adjustment per patient size (includes targeted exams where dose is matched to clinical indication); or iterative reconstruction. DLP: 539.83 mGy.cm COMPARISON: Radiograph 05/17/2025. Contrast: Omnipaque 350 100 cc IV. No acute fractures of the. Bones of the lower extremity are normally aligned. There is a large lobulated mass of increased density identified along the anterior, superior and medial tibia. Mass begins over the proximal tibia and extends inferiorly over a length of 10 cm. Transverse diameter 5.3 cm and anterior posterior diameter 3.8 cm. Mass does extend deep to contact the tibia. There are multiple small lobulated collections extending to the superficial soft tissues with overlying soft tissue thickening. There is no liquefied mass. No peripheral enhancement. There is mild enhancement of this high density collection but this is most likely hematoma. There is mild soft tissue stranding which is probably related to the injury. At this time no abscess is suspected. No joint effusion. CT/CT lower leg LT w con [id number] IMPRESSION: 1. Large multiloculated high density mass in the soft tissues of the anterior superior tibia. This is most consistent with a hematoma. No liquefied mass or a bscess identified at this time. 2. No fracture.
[2025-05-22 10:49] LABS: Blood Urea Nitrogen 14 mg/dL (8-23)
[2025-05-22] MEDS: iohexol 350 mg/mL 500 mL Btl (per mL) IV (11:08)
== END 2025-05-22 09:54 | disposition home or self-care (01) ==
PROVIDERS: PCP Electrodiagnostic Medicine; Visit Provider Electrodiagnostic Medicine
DX: S89.82XA Other specified injuries of left lower leg, initial encounter (principal); X58.XXXA Exposure to other specified factors, initial encounter; M79.89 Other specified soft tissue disorders
CPT/HCPCS: 73701; 82565; 84520

== ENCOUNTER 2025-05-23 10:13 | Outpatient (CLI) | payer MEDICARE, SELFPAY | END 2025-05-23 10:14 | disposition home or self-care (01) | LOC: SPT 10:14 | PROVIDERS: PCP Electrodiagnostic Medicine; Visit Provider Podiatrist Foot & Ankle Surgery | DX: Z46.89 Encounter for fitting and adjustment of other specified devices (principal); S92.351D Displaced fracture of fifth metatarsal bone, right foot, subsequent encounter for fracture with routine healing; S92.151D Displaced avulsion fracture (chip fracture) of right talus, subsequent encounter for fracture with routine healing; X58.XXXD Exposure to other specified factors, subsequent encounter | CPT/HCPCS: L4361 ==